=== PATIENT | female | born 1970 | race African-American/Black ===

== ENCOUNTER 2018-04-05 20:51 | Emergency (ER) | payer MEDICAID ==
[~2018-04-05] VITALS: Ht 154.9 cm; Wt 104.3 kg
[~2018-04-05 20:51] MED LIST: ARIP400S INJ; ARIP400S2 IM; CEFP500T4 PO; FLUO20CA25 PO; INVEGA; LISI-556 PO; NITR-65 PO; ONDAN4ODT PO; POTA-51 PO; QUET100T32 PO; QUET200T57 PO; TRIA16.5 NS
[2018-04-05] MEDS ORDERED: LACTATED RINGERS 1,000 ML IV ONE (21:07)
[2018-04-05] MEDS ORDERED: KETOROLAC 30 MG/ML VIAL IVP STA (21:07)
[2018-04-05 21:24] LABS: BASOPHILS % (AUTO) 0 % (0-10); EOSINOPHILS # (AUTO) 0.2 10^3/uL (0.0-0.3); EOSINOPHILS % (AUTO) 2 % (0-10); HEMATOCRIT 32 % (35-52); HEMOGLOBIN 9.9 G/DL (11.5-16.0); LYMPHOCYTES # (AUTO) 1.9 X 10^3 (1.0-4.0); LYMPHOCYTES % (AUTO) 12 % (12-44); MEAN CORPUSCULAR HEMOGLOBIN 25 PG (25-34); MEAN CORPUSCULAR HGB CONC 31 G/DL (32-36); MEAN CORPUSCULAR VOLUME 80 FL (80-99); MEAN PLATELET VOLUME 8.6 FL (7.4-10.4); MONOCYTES # (AUTO) 0.9 X 10^3 (0.0-1.0); MONOCYTES % (AUTO) 6 % (0-12); NEUTROPHILS # (AUTO) 12.9 X 10^3 (1.8-7.8); NEUTROPHILS % (AUTO) 81 % (42-75); PLATELET COUNT 511 10^3/uL (130-400); RED BLOOD COUNT 4.01 10^6/uL (4.35-5.85); RED CELL DISTRIBUTION WIDTH 16.8 % (10.0-14.5)
[2018-04-05 21:25] LABS: BILIRUBIN,URINE NEGATIVE (NEGATIVE); CLARITY,URINE VERY CLOUDY; COLOR,URINE OTHER; GLUCOSE, URINE (UA) NEGATIVE (NEGATIVE); KETONES,URINE NEGATIVE (NEGATIVE); LEUKOCYTE ESTERASE ,URINE 3+ (NEGATIVE); NITRITE,URINE NEGATIVE (NEGATIVE); PH,URINE 7 (5-9); PROTEIN,URINE 4+ (NEGATIVE); UROBILINOGEN,URINE NORMAL (NORMAL)
[2018-04-05 21:33] LABS: BACTERIA,URINE FEW /HPF; RBC,URINE >100 /HPF; SQUAMOUS EPITHELIAL CELL,UR 0-2 /HPF; WBC,URINE 25-50 /HPF
[2018-04-05 21:35] LABS: AMPHETAMINE SCREEN, URINE NEGATIVE (NEGATIVE); BARBITURATE SCREEN URINE NEGATIVE (NEGATIVE); BENZODIAZEPINES SCREEN URINE NEGATIVE (NEGATIVE); CANNABINOID SCREEN, URINE NEGATIVE (NEGATIVE); COCAINE SCREEN URINE NEGATIVE (NEGATIVE); METHADONE STAT NEGATIVE (NEGATIVE); METHAMPHETAMINE SCREEN URINE S NEGATIVE (NEGATIVE); OPIATE SCREEN URINE NEGATIVE (NEGATIVE); OXYCODONE STAT NEGATIVE (NEGATIVE); PROPOXYPHENE STAT NEGATIVE (NEGATIVE); TRICYCLIC ANTIDEPRESSANTS SCRE POSITIVE (NEGATIVE)
[2018-04-05 21:42] LABS: BAND NEUTROPHILS 0 %; BASOPHILS % (MANUAL) 2 %; EOSINOPHILS % (MANUAL) 0 %; LYMPHOCYTES % (MANUAL) 11 %; MONOCYTES % (MANUAL) 4 %; NEUTROPHILS % (MANUAL) 83 %; RBC MORPH NORMAL
[2018-04-05 21:46] LABS: ALANINE AMINOTRANSFERASE 21 U/L (0-55); ALBUMIN 4.1 GM/DL (3.2-4.5); ALKALINE PHOSPHATASE 150 U/L (40-136); AMYLASE 43 U/L (25-125); BILIRUBIN,TOTAL 0.3 MG/DL (0.1-1.0); BUN/CREATININE RATIO 11; CALCIUM 9.6 MG/DL (8.5-10.1); CARBON DIOXIDE 21 MMOL/L (21-32); CHLORIDE 110 MMOL/L (98-107); CREATININE SERUM 1.12 MG/DL (0.60-1.30); GFR ESTIMATED > 60; GLUCOSE 114 MG/DL (70-105); LIPASE 27 U/L (8-78); POTASSIUM 4.1 MMOL/L (3.6-5.0); SODIUM 142 MMOL/L (135-145); TOTAL PROTEIN 7.8 GM/DL (6.4-8.2)
--- NOTE | 2018-04-05 22:05 | Diagnostic Imaging Report ---
INDICATION: Blood in urine. Painful urination EXAMINATION: Abdominal series dated 04/05/2018 COMPARISON: 05/11/2011 FINDINGS: The heart is stable. Pulmonary vasculature is congested. Mildly prominent markings in the mid lungs bilaterally perhaps due to mild edema. No effusions, infiltrates or pneumothorax. The abdomen demonstrates no free air. Scattered air and stool seen throughout the colon. No dilated loops of bowel are seen. Hyperdensities in the right midabdomen are noted and nonspecific. These could represent renal stones. They were not present on previous imaging. Hyperdensities throughout the pelvis are seen bilaterally as well and not present previously. Although some of these are likely phleboliths ureteral stones cannot be excluded. Very mild scoliosis of the lower lumbar region noted. Degenerative findings noted in the lower lumbar spine with likely pars defects bilaterally at L5. IMPRESSION: 1. Densities in the pelvis bilaterally and also in the right mid abdomen, nephrolithiasis and distal ureteral stones cannot be excluded on this examination and if there is concern for such a process CT imaging recommended. 2. Nonobstructive bowel gas pattern 3. Questionable pulmonary edema versus chronic interstitial changes with pulmonary vascular congestion also possible. Dictated by: Dictated on workstation # [id number]
--- NOTE | 2018-04-05 22:11 | ED GU-Female ---
General Chief Complaint: Abdominal/GI Problems Stated Complaint: POSS KIDNEY STONE Nursing Triage Note: PT PRESENTS TO ER WITH COMPLAINT OF BLOOD IN URINE AND PAIN. STATES SHE FEELS SHE COULD HAVE A POSSIBLE KIDNEY STONE. Nursing Sepsis Screen: No Definite Risk Source: patient Exam Limitations: other (SOMEWHAT LIMITED HISTORIAN) Allergies and Home Medications Allergies Coded Allergies: Penicillins (Verified Allergy, Unknown, 05/17/08) Home Medications Aripiprazole 400 Mg Suser.vial, 400 MG IM UD, (Reported) Fluoxetine HCl 20 Mg Capsule, 1 CAP PO DAILY, (Reported) Lisinopril 5 Mg Tablet, 1 TAB PO DAILY, (Reported) Nitrofurantoin Monohyd/M-Cryst 100 Mg Capsule, 1 TAB PO BID Prescribed by: MAGDA OCHOA on 10/01/15 2319 Potassium Chloride 20 Meq Tablet.er, 20 MEQ PO BID Prescribed by: CONRADO PAUL on 05/07/15 1532 Quetiapine Fumarate 200 Mg Tablet, 1 TAB PO DAILY, (Reported) Past [id number] Hx Patient Social History Alcohol Use: Denies Use Recreational Drug Use: No Smoking Status: Current Everyday Smoker Recent Foreign Travel: No Contact w/Someone Who Travel: No Recent Infectious Disease Expo: No Immunizations Up To Date Tetanus Booster (TDap): Unknown PED Vaccines UTD: Yes Date of Influenza Vaccine: Jun 11, 2015 Seasonal Allergies Seasonal Allergies: No Past Medical History Surgeries: Yes Tubal Ligation Respiratory: No Cardiac: Yes Hypertension Neurological: No Reproductive Disorders: No Sexually Transmitted Disease: No HIV/AIDS: No Gastrointestinal: No Musculoskeletal: No Endocrine: No Cancer: No Psychosocial: Yes (PATIENT TAKES ABILIFY AND) Suicide Attempts, Schizophrenia, Depression Integumentary: No Blood Disorders: No Adverse Reaction/Blood Tranf: No Family Medical History Patient reports no known family medical history. No Pertinent Family Hx Physical Exam Vital Signs Vital Signs - First Documented 04/05/18 20:56 Temp 100.4 Pulse 90 Resp 20 B/P (MAP) 176/110 (132) Pulse Ox 98 O2 Delivery Room Air Capillary Refill : Less Than 3 Seconds Height, Weight, BMI Height: 5'1.00" Weight: 230lbs. oz. 104.001068nb; BMI Method:Stated Focused Exam Lactate Level 04/05/18 21:27: Lactic Acid Level 1.41 Lactic Acid Level Laboratory Tests Test 04/05/18 21:27 Lactic Acid Level 1.41 MMOL/L (0.50-2.00) Progress/Results/Core Measures Suspected Sepsis Recent Fever Within 48 Hours: No Infection Criteria Present: None New/Unexplained Altered Menta: No Sepsis Screen: No Definite Risk SIRS Temperature:100.4 Pulse: 90 Respiratory Rate: 20 Laboratory Tests 04/05/18 21:15: White Blood Count 16.0H Blood Pressure 176 /110 Mean: 132 04/05/18 21:27: Lactic Acid Level 1.41 Laboratory Tests 04/05/18 21:15: Creatinine 1.12, Platelet Count 511H, Total Bilirubin 0.3 Results/Orders Lab Results Laboratory Tests Test 04/05/18 21:15 04/05/18 21:19 04/05/18 21:27 Range/Units White Blood Count 16.0 H 4.3-11.0 10^3/uL Red Blood Count 4.01 L 4.35-5.85 10^6/uL Hemoglobin 9.9 L 11.5-16.0 G/DL Hematocrit 32 L 35-52 % Mean Corpuscular Volume 80 80-99 FL Mean Corpuscular Hemoglobin 25 25-34 PG Mean Corpuscular Hemoglobin Concent 31 L 32-36 G/DL Red Cell Distribution Width 16.8 H 10.0-14.5 % Platelet Count 511 H 130-400 10^3/uL Mean Platelet Volume 8.6 7.4-10.4 FL Neutrophils (%) (Auto) 81 H 42-75 % Lymphocytes (%) (Auto) 12 12-44 % Monocytes (%) (Auto) 6 0-12 % Eosinophils (%) (Auto) 2 0-10 % Basophils (%) (Auto) 0 0-10 % Neutrophils # (Auto) 12.9 H 1.8-7.8 X 10^3 Lymphocytes # (Auto) 1.9 1.0-4.0 X 10^3 Monocytes # (Auto) 0.9 0.0-1.0 X 10^3 Eosinophils # (Auto) 0.2 0.0-0.3 10^3/uL Basophils # (Auto) 0.0 0.0-0.1 10^3/uL Neutrophils % (Manual) 83 % Lymphocytes % (Manual) 11 % Monocytes % (Manual) 4 % Eosinophils % (Manual) 0 % Basophils % (Manual) 2 % Band Neutrophils 0 % Blood Morphology Comment NORMAL Sodium Level 142 135-145 MMOL/L Potassium Level 4.1 3.6-5.0 MMOL/L Chloride Level 110 H 98-107 MMOL/L Carbon Dioxide Level 21 21-32 MMOL/L Anion Gap 11 5-14 MMOL/L Blood Urea Nitrogen 12 7-18 MG/DL Creatinine 1.12 0.60-1.30 MG/DL Estimat Glomerular Filtration Rate > 60 BUN/Creatinine Ratio 11 Glucose Level 114 H 70-105 MG/DL Calcium Level 9.6 8.5-10.1 MG/DL Total Bilirubin 0.3 0.1-1.0 MG/DL Aspartate Amino Transf (AST/SGOT) 17 5-34 U/L Alanine Aminotransferase (ALT/SGPT) 21 0-55 U/L Alkaline Phosphatase 150 H 40-136 U/L Total Protein 7.8 6.4-8.2 GM/DL Albumin 4.1 3.2-4.5 GM/DL Amylase Level 43 25-125 U/L Lipase 27 8-78 U/L Serum Test, Qualitative NEGATIVE NEGATIVE Urine Color OTHER H Urine Clarity VERY CLOUDY H Urine pH 7 5-9 Urine Specific [place] 1.010 L 1.016-1.022 Urine Protein 4+ NEGATIVE Urine Glucose (UA) NEGATIVE NEGATIVE Urine Ketones NEGATIVE NEGATIVE Urine Nitrite NEGATIVE NEGATIVE Urine Bilirubin NEGATIVE NEGATIVE Urine Urobilinogen NORMAL NORMAL MG/DL Urine Leukocyte Esterase 3+ H NEGATIVE Urine RBC (Auto) 5+ H NEGATIVE Urine RBC >100 H /HPF Urine WBC 25-50 H /HPF Urine Squamous Epithelial Cells 0-2 /HPF Urine Crystals NONE /LPF Urine Bacteria FEW H /HPF Urine Casts NONE /LPF Urine Mucus NEGATIVE /LPF Urine Culture Indicated YES Urine Opiates Screen NEGATIVE NEGATIVE Urine Oxycodone Screen NEGATIVE NEGATIVE Urine Methadone Screen NEGATIVE NEGATIVE Urine Propoxyphene Screen NEGATIVE NEGATIVE Urine Barbiturates Screen NEGATIVE NEGATIVE Ur Tricyclic Antidepressants Screen POSITIVE H NEGATIVE Urine Phencyclidine Screen NEGATIVE NEGATIVE Urine Amphetamines Screen NEGATIVE NEGATIVE Urine Methamphetamines Screen NEGATIVE NEGATIVE Urine Benzodiazepines Screen NEGATIVE NEGATIVE Urine Cocaine Screen NEGATIVE NEGATIVE Urine Cannabinoids Screen NEGATIVE NEGATIVE Lactic Acid Level 1.41 0.50-2.00 MMOL/L My Orders Orders - YULIANA JEFFRIES DO Ct Abd/Pelvis Wo(Kidney Stone) (04/05/18 21:07) Amylase (04/05/18 21:07) Cbc With Automated Diff (04/05/18 21:07) Comprehensive Metabolic Panel (04/05/18 21:07) Lipase (04/05/18 21:07) Ua Culture If Indicated (04/05/18 21:07) Acute Abd Series (04/05/18 21:07) Saline Lock/Iv-Start (04/05/18 21:07) Lactated Ringers (Lr 1000 Ml Iv Solution (04/05/18 21:07) Ketorolac Injection (Toradol Injection) (04/05/18 21:07) Lactic Acid Analyzer (04/05/18 21:07) Blood Culture (04/05/18 21:07) Drug Screen Stat (Urine) (04/05/18 21:07) Hcg,Qualitative Serum (04/05/18 21:07) Manual Differential (04/05/18 21:15) Urine Culture (04/05/18 21:19) Ceftriaxone Injection (Rocephin Injectio (04/06/18 00:00) Rx-Hydrocodone/Apap 5-325 Mg (Rx-Vicodin (04/06/18 00:45) Rx-Ondansetron Po (Rx-Zofran Po) (04/06/18 00:41) Rx-Nitrofurantoin [place] (Rx-Macrobid) (04/06/18 00:41) Alfuzosin (Not Stocked) (Uroxatral (Not (04/06/18 00:45) Medications Given in ED Current Medications Medications Dose Ordered Sig/Mikki Route Start Time Stop Time Status Last Admin Dose Admin Ceftriaxone Sodium 1000 mg/ Sodium Chloride 50 ml @ 100 mls/hr ONCE ONCE IV 04/06/18 00:00 04/06/18 00:29 DC 04/06/18 00:08 100 MLS/HR Lactated Ringer's 1,000 ml @ 0 mls/hr Q0M ONCE IV 04/05/18 21:07 04/05/18 21:09 DC 04/05/18 21:25 1,000 MLS/HR Vital Signs/I&O 04/05/18 20:56 Temp 100.4 Pulse 90 Resp 20 B/P (MAP) 176/110 (132) Pulse Ox 98 O2 Delivery Room Air Capillary Refill : Less Than 3 Seconds Blood Pressure Mean: 132 Departure Impression Primary Impression: Left ureteral calculus Additional Impressions: UTI (urinary tract infection) Cholelithiasis Disposition: 01 HOME, SELF-CARE Condition: Improved Departure-Patient Inst. Referrals: [facility] [place] ([place]) Primary Care Physician JOJO PIERSON MD,DARYL Slater MD Add. Discharge Instructions: LOTS OF CLEAR LIQUIDS--DRINK ENOUGH SO YOU ARE URINATING EVERY 2-3 HOURS WHILE AWAKE STRAIN ALL URINE--RETURN ANY STONES TO DR. EGAN'S OFFICE FOLLOW UP WITH DR. EGAN FOR FURTHER EVALUATION OF KIDNEY STONE FOLLOW UP WITH DR. PIERSON FOR FURTHER EVALUATION OF GALLSTONES RETURN TO ER IF WORSE All discharge instructions reviewed with patient and/or family. Voiced understanding. Scripts Hydrocodone/Ibuprofen (Hydrocodone-Ibuprofen 7.5-200) 1 Each Tablet 1-2 EACH PO Q4H for Pain, #20 TAB Prov: YULIANA JEFFRIES DO 04/06/18 Tamsulosin HCl (Flomax) 0.4 Mg Cap 0.4 MG PO DAILY, #10 CAP Prov: YULIANA JEFFRIES DO 04/06/18 Ondansetron (Zofran Odt) 4 Mg Tab.rapdis 4 MG PO Q4H for Nausea/Vomiting, #10 TAB Prov: YULIANA JEFFRIES DO 04/06/18 Nitrofurantoin Monohyd/M-Cryst (Macrobid 100 mg Capsule) 100 Mg Capsule 100 MG PO BID, #20 CAP Prov: YULIANA JEFFRIES DO 04/06/18 YULIANA JEFFRIES DO Apr 05, 2018 22:11
[2018-04-06] MEDS ORDERED: cefTRIAXone INJECTION 1,000 MG in NS (IVPB) 50 ML IV ONE ×2
[2018-04-06] MEDS ORDERED: RX-NITROFURANTOIN 100 MG (MACROBID) CAP PPK#2 PO STA (00:41)
[2018-04-06] MEDS ORDERED: RX-ONDANSETRON 4 MG ODT (ZOFRAN) PPK #4 PO STA (00:41)
[2018-04-06] MEDS ORDERED: RX-HYDROCODONE/APAP 5/325 MG #4 TAB PK PO PRN (00:45)
[2018-04-06] MEDS ORDERED: ALFUZOSIN HCL 10 MG TAB (UROXATRAL) PO SCH (00:45)
[2018-04-06] MEDS ORDERED: HYDR-87 PO (00:46)
[2018-04-06] MEDS ORDERED: ONDA4TAB8 PO (00:46)
[2018-04-06] MEDS ORDERED: TAMS0.4C98 PO (00:46)
[2018-04-06] MEDS ORDERED: NITR-65 PO (00:46)
[2018-04-06 01:08] VITALS: BP 145/90
--- OUTSIDE RECORDS SUMMARY | 2018-04-06 01:32 | XMS REPORT ---
Author Author KEENAN REESE Organization [facility] [place] Address [address] [place] [address] Care Team Providers Care Dot Etcher Name Role Phone KEENAN REESE Unavailable PROBLEMS Type Condition ICD9-CM Code [id number] Code Onset Dates Condition Status SNOMED Code Problem Schizoaffective disorder F25.9 Active 70517371 Problem Impacted cerumen of both ears H61.23 Active [id number] Problem Establishing care with new doctor, encounter for Z76.89 Active 491355796 Problem HTN (hypertension) I10 Active 09956738 Problem Family history of borderline diabetes mellitus Z83.3 Active 809739534 Problem Allergic rhinitis, unspecified seasonality, unspecified trigger J30.9 Active 08254876 Problem Anxiety F41.9 Active 73023987 ALLERGIES No Information ENCOUNTERS Encounter Location Date Diagnosis [place] [id number] [place] [phone] Mar, Gastroenteritis K52.9 and BMI 40.0-44.9, adult Z68.41 [place] [id number] [place] [address] 56196[address] 98[address] Dec, Establishing care with new doctor, encounter for Z76.89 ; HTN (hypertension) I10 ; Schizoaffective disorder F25.9 ; Anxiety F41.9 ; Allergic rhinitis, unspecified seasonality, unspecified trigger J30.9 ; Impacted cerumen of both ears H61.23 and BMI 40.0-44.9, adult Z68.41 [place] [id number] [place] [address]67[address] Nov, [place] [id number] [place] [address]682[address] 58[address] Oct, [place] [id number] [place] [address]57- 384[address] Apr, [place] [id number] [place] [address] 64[address] 6[address] Apr, Family history of borderline diabetes mellitus Z83.3 [place] [id number] [place] [address] 91483- 2[address] Apr, Family history of borderline diabetes mellitus Z83.3 ; Establishing care with new doctor, encounter for Z76.89 ; Screening cholesterol level Z13.220 ; HTN (hypertension) I10 ; Schizoaffective disorder F25.9 and Anxiety F41.[address] [address] Apr, [place] [address] [address] Aug, Other viral agents as the cause of diseases classified elsewhere B97.89 and Acute upper respiratory infection, unspecified J06.9 [place] [address] [address] Jul, Encounter for immunization Z23 [place] [address] [address] Apr, HTN (hypertension) I10 and Family history of borderline diabetes mellitus Z83.3 [place] [id number] [place] [address] 49[address]- 8910 Nov, [place] [address] [address] Oct, HTN (hypertension) I10 ; Family history of borderline diabetes mellitus Z83.3 ; Schizoaffective disorder F25.9 and Anxiety F41.9 [place] [id number] [place] [address] 81726- 4[address] Oct, [place] [id number] [place] [address]- [address] Sep, [place] [address] [place] [address] Jul, Major depression, recurrent F33.9 [facility] [place] [id number] [place] [address] 48498- 9[address] Jul, Encounter for immunization Z23 [facility] [place] [id number] [place] [address] 62881- [phone] 08 May, 2015 Vaginal pain 625.9 and UTI (urinary tract infection) 599.0 [facility] [place] [id number] [place] [address] 93012- 5871 Apr, Sinusitis 473.9 [facility] [place] [address] [address] Apr, [facility] [place] [id number] [place] [address] 76151- 0763 Apr, [facility] [place] [id number] [place] [address] 47564- 0[address] Apr, Encounter for routine gynecological examination V72.31 [facility] [place] [id number] [place] [address] 46364- 8[address] Feb, [facility] [place] [id number] [place] [address] 31421- 1756 Dec, [facility] [place] [id number] [place] [address] 80514- 5563 Dec, [facility] [place] [id number] [place] [address] 76803- 3474 Oct, [facility] [place] [id number] [place] [address] 69148- 3541 Oct, [facility] [place] [id number] [place] [address] 35170- [address] May, [facility] [place] [id number] [place] [address] 02443- [address]995 May, [facility] [place] [id number] [place] [address] 65083- 3636 Sep, [facility] [place] [address] [facility] [id number] [place] [address] Sep, [facility] [place] [address] [facility] [id number] [place] [address] Jul, IMMUNIZATIONS No Known Immunizations SOCIAL HISTORY Never Assessed REASON FOR VISIT Eye Exam PLAN OF CARE VITAL SIGNS MEDICATIONS No Known Medications RESULTS No Results PROCEDURES No Known procedures INSTRUCTIONS MEDICATIONS ADMINISTERED No Known Medications MEDICAL (GENERAL) HISTORY Type Description Date Medical History schizoaffective disorder Medical History anxiety Medical History depression Medical History hypertension Surgical History tubal ligation Hospitalization History childbirth only Hospitalization History [facility] in [place] 09/2015
--- OUTSIDE RECORDS SUMMARY | 2018-04-06 01:33 | XMS REPORT ---
Author DIANA Munguia [facility] eClinicalWorks Address Unknown Phone Unavailable Care Team Providers Care Palm And Back Forger Name Role Phone DIANA VIDAL CP Unavailable Allergies, Adverse Reactions, Alerts Substance Reaction Event Type Penicillamine Info Not Available Drug Allergy Problems Problem Type Condition Code Onset Dates Condition Status Problem Routine general medical examination at health care facility V70.0 Active Assessment Major depression, recurrent F33.9 Active Problem Need for prophylactic vaccination and inoculation, Influenza V04.81 Active Medications No Known Medications Procedures Procedure Coding System Code Date Psych diagnostic evaluation, new patient CPT-4 78354 Jul 28, 2015 Results No Known Results Summary Purpose eClinicalWorks Submission
--- OUTSIDE RECORDS SUMMARY | 2018-04-06 01:33 | XMS REPORT ---
Author Author ALBAN WOODARD Organization e[employer] Address Unknown Phone Unavailable Care Team Providers Care Test Puller Name Role Phone ALBAN WOODARD Unavailable Allergies No Known Allergies Problems Problem Type Condition Code Onset Dates Condition Status Problem Routine general medical examination at health care facility V70.0 Active Problem Need for prophylactic vaccination and inoculation, Influenza V04.81 Active Medications No Known Medications Results No Known Results Summary Purpose eClinicalWorks Submission
--- OUTSIDE RECORDS SUMMARY | 2018-04-06 01:33 | XMS REPORT ---
Author KEENAN Hu [facility] eClinicalWorks Address Unknown Phone Unavailable Care Team Providers Care Online User Experience Strategist Name Role Phone EKENAN REESE CP Unavailable Allergies No Known Allergies Problems Problem Type Condition Code Onset Dates Condition Status Problem Family history of borderline diabetes mellitus Z83.3 Active Problem Schizoaffective disorder F25.9 Active Problem HTN (hypertension) I10 Active Problem Anxiety F41.9 Active Assessment Encounter for immunization Z23 Active Medications No Known Medications Procedures Procedure Coding System Code Date SINGLE IMMUNIZATION ADMIN CPT-4 41634 Jul 06, 2016 FLUARIX QUAD P-FREE 3 AND UP .50 2015 CPT-4 90063 Jul 06, 2016 Results No Known Results Immunizations Vaccine Administration Date FLUARIX QUAD P-FREE 3 AND UP .50 2015Jul 06, 2016 Summary Purpose eClinicalWorks Submission
--- OUTSIDE RECORDS SUMMARY | 2018-04-06 01:33 | XMS REPORT ---
Author Author KELLY ROBB Organization e[employer] Address Unknown Phone Unavailable Care Team Providers Care Color Adviser Name Role Phone KELLY ROBB CP Unavailable Allergies, Adverse Reactions, Alerts Substance Reaction Event Type Penicillamine Info Not Available Drug Allergy Problems Problem Type Condition ICD-9 Code Onset Dates Condition Status Problem Routine general medical examination at health care facility V70.0 Active Assessment Vaginal pain 625.9 Active Problem Need for prophylactic vaccination and inoculation, Influenza V04.81 Active Assessment UTI (urinary tract infection) 599.0 Active Medications Medication Code System Code Instructions Start Date End Date Status Dosage Lisinopril [facility] [address]-36 5 MG Orally Once a day 1 tablet Bactrim DS [facility] [address]-16 800-160 MG Orally 2 times a day May 13, 2015 May 18, 2015 1 tablet QUEtiapine Fumarate ER [facility] [address]-73 50 MG Orally Once a day 1 tablet in the evening Prozac [facility] [address]-32 20 MG Orally Once a day 1 capsule in the morning Abilify [facility] [address]-41 Jun 04, 2014 by intramuscular route Procedures Procedure Coding System Code Date Office Visit, Est Pt., Level 3 CPT-4 89173 May 13, 2015 URINALYSIS, AUTO, W/O SCOPE CPT-4 86302 May 13, 2015 Vital Signs Date/Time: May 13, 2015 Cardiac Monitoring Heart Rate 76 bpm Temperature 98.4 F Weight 219.5 lbs Blood Pressure Diastolic 90 mmHg Blood Pressure Systolic 144 mmHg Results No Known Results Summary Purpose eClinicalWorks Submission
--- OUTSIDE RECORDS SUMMARY | 2018-04-06 01:33 | XMS REPORT ---
Author Author Brady JOSÉ ANTONIO Organization [facility] Address [address] [place] [address] Care Team Providers Care Organic Lab Worker Name Role Phone isadoraEVERTON FloresNETTE Unavailable PROBLEMS Type Condition ICD9-CM Code BZG95-AV Code Onset Dates Condition Status SNOMED Code Problem Anxiety F41.9 Active 43788297 Problem HTN (hypertension) I10 Active 40246332 Problem Family history of borderline diabetes mellitus Z83.3 Active 268528834 Problem Schizoaffective disorder F25.9 Active 74500061 ALLERGIES No Information ENCOUNTERS Encounter Location Date Diagnosis [place] [id number] [address] Dec, [facility] [address] [place] [id number] [place] [address] Nov, [place] [address] [address] Oct, [facility] [address] [id number] [place] [address]24- [address]707 Apr, [facility] [address] [id number] [place] [address] 18560- 4349 Apr, Family history of borderline diabetes mellitus Z83.3 [facility] [address] [id number] [place] [address] 04190- 5631 Apr, Family history of borderline diabetes mellitus Z83.3 ; Establishing care with new doctor, encounter for Z76.89 ; Screening cholesterol level Z13.220 ; HTN (hypertension) I10 ; Schizoaffective disorder F25.9 and Anxiety F41.9 [facility] [address] [address] Apr, [place] [address] [place] [address] 38764- 8842 Aug, Other viral agents as the cause of diseases classified elsewhere B97.89 and Acute upper respiratory infection, unspecified J06.9 [place] [address] [place] [address] 84525- 8978 Jul, Encounter for immunization Z23 [place] [address] [place] [id number] [place] [address] 29091- 3086 Apr, HTN (hypertension) I10 and Family history of borderline diabetes mellitus Z83.3 [place] [address] [place] [id number] [place] [address] 43600- 8728 Nov, [place] [address] [place] [id number] [place] [address] 86378- 5[address] Oct, HTN (hypertension) I10 ; Family history of borderline diabetes mellitus Z83.3 ; Schizoaffective disorder F25.9 and Anxiety F41.9 [place] [address] [place] [id number] [place] [address] 85485- 7847 Oct, [place] [address] [place] [id number] [place] [address] 21909- 4739 Sep, [place] [address] [place] [id number] [place] [address] 95231- 8179 Jul, Major depression, recurrent F33.9 [place] [address] [place] [id number] [place] [address] 26265- 5474 Jul, Encounter for immunization Z23 [place] [address] [place] [address] 48939- 9390 May, Vaginal pain 625.9 and UTI (urinary tract infection) 599.0 [place] [address] [place] [address] 40128- 3725 Apr, Sinusitis 473.9 [place] [address] [place] [id number] [place] [address] 37491- 8258 Apr, [facility] [address] [id number] [address] Apr, [facility] [address] Apr, Encounter for routine gynecological examination V72.31 [facility] [address] [id number] [address] Feb, [facility] [address] [address] Dec, [facility] [address] [address] Dec, [facility] [address] [address] Oct, [facility] [address] [address] 45[address] Oct, [facility] [address] May, [facility] [address] May, [facility] [address] [address] Sep, [facility] [address] [place] [id number] [address] Sep, [facility] [address] [place] [address] Jul, IMMUNIZATIONS No Known Immunizations SOCIAL HISTORY Never Assessed REASON FOR VISIT PLAN OF CARE VITAL SIGNS MEDICATIONS Medication Instructions Dosage Frequency Start Date End Date Duration Status Lisinopril 10 mg TAKE 1 TABLET BY MOUTH DAILY 30 10 days Active RESULTS No Results PROCEDURES No Known procedures INSTRUCTIONS MEDICATIONS ADMINISTERED No Known Medications MEDICAL (GENERAL) HISTORY Type Description Date Medical History schizoaffective disorder Medical History anxiety Medical History depression Medical History hypertension Surgical History tubal ligation Hospitalization History childbirth only Hospitalization History [facility] in [place] 09/2015
--- OUTSIDE RECORDS SUMMARY | 2018-04-06 01:33 | XMS REPORT ---
Author Author KELLY ROBB Organization [employer] Address Unknown Phone Unavailable Care Team Providers Care Rn Care Manager Name Role Phone KELLY ROBB CP Unavailable Allergies, Adverse Reactions, Alerts Substance Reaction Event Type Penicillamine Info Not Available Drug Allergy Problems Problem Type Condition ICD-9 Code Onset Dates Condition Status Problem Routine general medical examination at health care facility V70.0 Active Assessment Sinusitis 473.9 Active Problem Need for prophylactic vaccination and inoculation, Influenza V04.81 Active Medications Medication Code System Code Instructions Start Date End Date Status Dosage QUEtiapine Fumarate ER [facility] [address]-99 50 MG Orally Once a day 1 tablet in the evening Lisinopril [facility] [address]-06 5 MG Orally Once a day 1 tablet Claritin [facility] [address]-33 10 MG Orally Once a day Apr 24, 2015 May 08, 2015 1 tablet Prozac [facility] [address]-01 20 MG Orally Once a day 1 capsule in the morning Abilify [facility] [address]-65 Jun 04, 2014 by intramuscular route Azithromycin [facility] [address]-24 250 MG Orally Once a day Apr 24, 2015 Apr 29, 2015 2 tablets on the first day, then 1 tablet daily for 4 days Procedures Procedure Coding System Code Date Office Visit, Est Pt., Level 3 CPT-4 61916 Apr 24, 2015 Vital Signs Date/Time: Apr 24, 2015 Cardiac Monitoring Heart Rate 78 bpm Temperature 97.8 F Weight 216.4 lbs Blood Pressure Diastolic 86 mmHg Blood Pressure Systolic 134 mmHg Results No Known Results Summary Purpose [employer] Submission
--- OUTSIDE RECORDS SUMMARY | 2018-04-06 01:33 | XMS REPORT ---
Author Author ALBAN WOODARD Organization [employer] Address Unknown Phone Unavailable Care Team Providers Care Web Marketing Intern Name Role Phone ALBAN WOODARD Unavailable Allergies No Known Allergies Problems Problem Type Condition Code Onset Dates Condition Status Problem Routine general medical examination at health care facility V70.0 Active Assessment Encounter for immunization Z23 Active Problem Need for prophylactic vaccination and inoculation, Influenza V04.81 Active Medications No Known Medications Procedures Procedure Coding System Code Date SINGLE IMMUNIZATION ADMIN CPT-4 48544 Jul 07, 2015 FLUARIX QUAD (3 & UP)-GSK-2014 CPT-4 01160 Jul 07, 2015 Results No Known Results Immunizations Vaccine Administration Date FLUARIX QUAD (3 & UP)-GSK-2014Jul 07, 2015 Summary Purpose [employer] Submission
--- OUTSIDE RECORDS SUMMARY | 2018-04-06 01:33 | XMS REPORT ---
Author Author SHAYLA RITCHIE [facility] Address [address] [place] [address] Care Team Providers Care Truck Driver Rubbish Collector Name Role Phone SHAYLA RITCHIE Unavailable PROBLEMS Type Condition ICD9-CM Code HXI41-IT Code Onset Dates Condition Status SNOMED Code Problem HTN (hypertension) I10 Active 05733506 Problem Family history of borderline diabetes mellitus Z83.3 Active 898633808 Problem Schizoaffective disorder F25.9 Active 88140249 Problem Anxiety F41.9 Active 02422546 ALLERGIES Substance Reaction Event Type Date Status Penicillamine Unknown Drug Allergy Aug, Active SOCIAL HISTORY No smoking Hx information available PLAN OF CARE Activity Details Follow Up prn Reason: VITAL SIGNS Height 63 in 2016-09-02 Weight 219.0 lbs 2016-09-02 Temperature 99.0 degrees Fahrenheit 2016-09-02 Heart Rate 90 bpm 2016-09-02 Respiratory Rate 22 2016-09-02 Oximetry 97 % 2016-09-02 BMI 38.79 kg/m2 2016-09-02 Blood pressure systolic 138 mmHg 2016-09-02 Blood pressure diastolic 102 mmHg 2016-09-02 MEDICATIONS Medication Instructions Dosage Frequency Start Date End Date Duration Status Prozac 20 MG Orally Once a day 1 capsule in the morning 24h Active Lisinopril 10 mg TAKE 1 TABLET BY MOUTH DAILY 30 30 Active Loratadine 10 mg Orally Once a day as needed for congestion 1 tablet Aug, Sep, 30 day(s) Active Abilify by intramuscular route May, Active QUEtiapine Fumarate ER 200 MG Orally Once a day 1 tablet in the evening 24h Active RESULTS No Results PROCEDURES Procedure Date Ordered Related Diagnosis Body Site MEASURE BLOOD OXYGEN LEVEL Sep 02, 2016 Office Visit, Est Pt., Level 3 Sep 02, 2016 IMMUNIZATIONS No Known Immunizations
--- OUTSIDE RECORDS SUMMARY | 2018-04-06 01:33 | XMS REPORT ---
Author Author ALBAN WOODARD Organization [employer] Address Unknown Phone Unavailable Care Team Providers Care Information Services Manager Name Role Phone ALBAN WOODARD Unavailable Allergies No Known Allergies Problems Problem Type Condition Code Onset Dates Condition Status Problem Routine general medical examination at health care facility V70.0 Active Problem Need for prophylactic vaccination and inoculation, Influenza V04.81 Active Medications Medication Code System Code Instructions Start Date End Date Status Dosage Lisinopril [facility] [address]-86 5 MG Orally Once a day- must have est care appt with a new provider 1 tablet Results No Known Results Summary Purpose [employer] Submission
--- NOTE | 2018-04-06 07:09 | Diagnostic Imaging Report ---
PROCEDURE: CT urinary tract, rule out kidney stone. TECHNIQUE: Multiple contiguous axial images were obtained through the abdomen and pelvis without the use of intravenous contrast. INDICATION: Blood in urine pain, painful. No history of stones. COMPARISON STUDY: No pertinent studies. FINDINGS: The lung bases are clear. No pleural effusions are present. There is a 3 cm calculi which appears to be stuck in the neck of the gallbladder. No duct dilatation or inflammation seen. A small stone is also present in the fundus of the gallbladder. The liver, spleen, pancreas, and adrenal glands are normal. There is a 6.4 mm calculi in the distal left ureter just above the ureterovesical junction. Mild left hydronephrosis is present. Several right renal calculi are present without hydronephrosis or inflammation. The largest calculi measures 11 mm. There is no ascites or free air. The uterus, urinary bladder and adnexal structures appear unremarkable. IMPRESSION: 1. There is bilateral nephrolithiasis with a 6.4 mm calculi in the distal left ureter with mild left hydronephrosis. 2. There is a 3 cm calculi in the neck of the gallbladder. No inflammation or duct dilatation is present. Findings agree with the [facility] report. Dictated by: Dictated on workstation # [id number]
== END 2018-04-06 01:08 | disposition home or self-care (01) ==
LOC: EDUNIT# 20:51 → ER 20:53
DX: N20.1 Calculus of ureter (principal); N39.0 Urinary tract infection, site not specified; K80.20 Calculus of gallbladder without cholecystitis without obstruction; I10 Essential (primary) hypertension; F20.9 Schizophrenia, unspecified; F32.9 Major depressive disorder, single episode, unspecified; F17.200 Nicotine dependence, unspecified, uncomplicated; Z91.5 Personal history of self-harm; Z98.51 Tubal ligation status; Z88.0 Allergy status to penicillin
CPT/HCPCS: 36415; 74022; 74176; 80053; 80306; 81000; 82150; 83605; 83690; 84703; 85007; 85027; 87040; 87088; 96361; 96365; 96375

== ENCOUNTER 2018-04-18 15:13 | Outpatient (CLI) | payer MEDICAID ==
[~2018-04-18] VITALS: Ht 154.9 cm; Wt 104.3 kg
[~2018-04-18 15:13] MED LIST changes: -LISI10TA2 PO; -PHEN-640 PO
[2018-04-18] MEDS ORDERED: LISI10TA2 PO (15:47)
[2018-04-19] MEDS ORDERED: TAMS0.4C98 PO (13:39)
[2018-04-19] MEDS ORDERED: PHEN-640 PO (13:39)
== END 2018-04-18 15:50 | disposition home or self-care (01) ==
LOC: PREOP 15:13
PROVIDERS: ATTEND Urology
DX: Z01.818 Encounter for other preprocedural examination (principal)

== ENCOUNTER → 2018-04-18 | Outpatient (CLI) | payer MEDICAID ==
[~2018-04-18] MED LIST changes: +HYDR-87 PO; +LISI10TA2 PO; +ONDA4TAB8 PO; +PHEN-640 PO; +TAMS0.4C98 PO
--- NOTE | 2018-04-18 12:12 | Diagnostic Imaging Report ---
CLINICAL INDICATION: Patient states gallbladder stones and questionable bilateral kidney stones. EXAM: KUB x-ray. COMPARISON: X-ray of the chest and abdomen dated 04/05/2018. FINDINGS AND IMPRESSION: 1: There is a new area of increased density overlying the right sacral region, which was not seen on the prior study. A distal right ureter stone cannot be completely excluded. This area of calcification measures grossly 5 mm. 2: There is a stable 9 mm calcification overlying the right renal shadow region and small area of calcification seen just superior to it. There are no other areas concerning for urinary tract stones. Stable phleboliths in the pelvis. 3: There is a nonobstructed bowel gas pattern. There is no evidence of abdominal free air. 4: There are small degenerative spurs involving lumbar spine and lower lumbar spine facet arthropathy. 5: There is degenerative spurring of the bilateral hip joint regions, especially the hypertrophic acetabular spurs which may be seen with pincer-type femoral acetabular impingement. Dictated by: Dictated on workstation # [id number]
== END ==
LOC: RAD 10:49
PROVIDERS: ATTEND Urology
DX: N20.2 Calculus of kidney with calculus of ureter (principal); K80.20 Calculus of gallbladder without cholecystitis without obstruction; M46.06 Spinal enthesopathy, lumbar region; M46.86 Other specified inflammatory spondylopathies, lumbar region; M76.891 Other specified enthesopathies of right lower limb, excluding foot; M76.892 Other specified enthesopathies of left lower limb, excluding foot
CPT/HCPCS: 74018

== ENCOUNTER 2018-04-19 08:53 | Day surgery (SDC) | payer MEDICAID ==
[~2018-04-19] VITALS: Ht 154.9 cm; Wt 104.3 kg
[~2018-04-19 08:53] MED LIST changes: +LISI10TA2 PO
--- OUTSIDE RECORDS SUMMARY | 2018-04-19 08:57 | XMS REPORT ---
Author Author ALISSA HEAD Organization [facility] Address [address] [place] [address] Care Team Providers Care Deputy Brand Inspector Name Role Phone ALISSA HEAD Unavailable PROBLEMS Type Condition ICD9-CM Code WDB06-MT Code Onset Dates Condition Status SNOMED Code Problem Schizoaffective disorder F25.9 Active 74729744 Problem Impacted cerumen of both ears H61.23 Active 2073390298802806 Problem Establishing care with new doctor, encounter for Z76.89 Active 743635454 Problem HTN (hypertension) I10 Active 49343766 Problem Family history of borderline diabetes mellitus Z83.3 Active 518545154 Problem Allergic rhinitis, unspecified seasonality, unspecified trigger J30.9 Active 85331163 Problem Anxiety F41.9 Active 90553702 ALLERGIES Substance Reaction Event Type Date Status Penicillamine Unknown Drug Allergy Dec, Active ENCOUNTERS Encounter Location Date Diagnosis [facility] [address] [address] Apr, [facility] [address] [place] [id number] [place] [address] Apr, [facility] [address] [address]- [address] Mar, Gastroenteritis K52.9 and BMI 40.0-44.9, adult Z68.41 [facility] [address] [address]- [address] Dec, Establishing care with new doctor, encounter for Z76.89 ; HTN (hypertension) I10 ; Schizoaffective disorder F25.9 ; Anxiety F41.9 ; Allergic rhinitis, unspecified seasonality, unspecified trigger J30.9 ; Impacted cerumen of both ears H61.23 and BMI 40.0-44.9, adult Z68.41 [place] [address] [place] [id number] [place] [address]- 2872 Nov, [place] [address] [place] [id number] [place] [address]43- 3611 Oct, [place] [address] [place] [id number] [place] [address] 85426- 8509 Apr, [place] [address] [address]- [address] Apr, Family history of borderline diabetes mellitus Z83.3 [place] [address] [place] [id number] [place] [address] 87377- 5203 Apr, Family history of borderline diabetes mellitus Z83.3 ; Establishing care with new doctor, encounter for Z76.89 ; Screening cholesterol level Z13.220 ; HTN (hypertension) I10 ; Schizoaffective disorder F25.9 and Anxiety F41.9 [place] [address] [place] [id number] [place] [address] 73532- 9846 Apr, [place] [address] [place] [id number] [place] [address] 49690- 2859 Aug, Other viral agents as the cause of diseases classified elsewhere B97.89 and Acute upper respiratory infection, unspecified J06.9 [place] [id number] [place] [address] 88273- 9572 Jul, Encounter for immunization Z23 [place] [address] [place] [id number] [place] [address] 29650- 3659 Apr, HTN (hypertension) I10 and Family history of borderline diabetes mellitus Z83.3 [place] [address] [place] [id number] [place] [address] 38531- 6927 Nov, [place] [address] [place] [id number] [place] [address] 88958- 0235 Oct, HTN (hypertension) I10 ; Family history of borderline diabetes mellitus Z83.3 ; Schizoaffective disorder F25.9 and Anxiety F41.9 [facility] [address] [place] [address] 94500- 9239 11 Oct, 2015 [facility] [address] [place] [id number] [place] [address] 89654- 8395 Sep, [facility] [address] [place] [id number] [place] [address] 86935- 8734 Jul, Major depression, recurrent F33.9 [facility] [address] [place] [id number] [place] [address] 59189- 1833 Jul, Encounter for immunization Z23 [facility] [address] [address]- [address] 08 May, 2015 Vaginal pain 625.9 and UTI (urinary tract infection) 599.0 [facility] [address] [place] [id number] [place] [address] 94343- 2303 Apr, Sinusitis 473.9 [facility] [address] [place] [id number] [place] [address] 84697- 3734 Apr, [facility] [address] [place] [id number] [place] [address] 26157- 4110 Apr, [facility] [address] [place] [id number] [place] [address] 29642- 6131 Apr, Encounter for routine gynecological examination V72.31 [facility] [address] [place] [address] 38666- 8288 Feb, [facility] [address] [place] [id number] [place] [address] 19435- 7624 Dec, [facility] [address] [place] [id number] [place] [address] 17350- 6432 Dec, [facility] [address] [place] [id number] [place] [address] 92330- 0707 Oct, [facility] [address] [place] [address] 06798- 2401 Oct, [facility] [address] [facility] [id number] [address] May, [facility] [address] [facility] [id number] [address]- [address] May, [facility] [address] [facility] [id number] [address]- 3056 Sep, [facility] [address] [facility] [id number] [address]- 2893 Sep, [facility] [address] [facility] [id number] [address]- 69[address] Jul, IMMUNIZATIONS No Known Immunizations SOCIAL HISTORY Never Assessed REASON FOR VISIT Establish Care--Renny PLAN OF CARE Activity Details Follow Up 3 Months, prn Reason:routine f/u VITAL SIGNS Height 63 in 2017-12-23 Weight 231.5 lbs 2017-12-23 Temperature 98.2 degrees Fahrenheit 2017-12-23 Heart Rate 90 bpm 2017-12-23 Respiratory Rate 2017-12-23 BMI 41.00 kg/m2 2017-12-23 Blood pressure systolic 118 mmHg 2017-12-23 Blood pressure diastolic 84 mmHg 2017-12-23 MEDICATIONS Medication Instructions Dosage Frequency Start Date End Date Duration Status Abilify 15 mg by intramuscular route May, Active Ferrous Sulfate 325 (65 Fe) MG Orally Once a day 1 tablet 24h Apr, Active QUEtiapine Fumarate ER 200 MG Orally Once a day 1 tablet in the evening 24h Active Lisinopril 10 mg Orally Once a day 1 tablet 24h 90 Active Prozac 20 MG Orally Once a day 1 capsule in the morning 24h Active Flonase 50 MCG/ACT Nasally no more than twice a day 1 spray in each nostril Dec, 30 day(s) Active Zyrtec Allergy 10 mg Orally Once a day 1 tablet 24h Dec, Apr, 30 day(s) Active RESULTS No Results PROCEDURES No Known procedures INSTRUCTIONS MEDICATIONS ADMINISTERED No Known Medications MEDICAL (GENERAL) HISTORY Type Description Date Medical History schizoaffective disorder Medical History anxiety Medical History depression Medical History hypertension Surgical History tubal ligation Hospitalization History childbirth only Hospitalization History [facility] 09/2015
--- OUTSIDE RECORDS SUMMARY | 2018-04-19 08:58 | XMS REPORT | Continuity of Care Document ---
Author Author [facility] Address Unknown Phone Unavailable Allergies Active Description Code Type Severity Reaction Onset Reported/Identified Relationship to Patient Clinical Status Yes Penicillins [id number] Drug Allergy Unknown N/A 05/17/2008 Yes Penicillins Drug Allergy N/A N/A 06/04/2014 Medications There is no data. Problems Date Dx Coded Attending Type Code Diagnosis Diagnosed By 05/11/2011 Ot 789.03 05/11/2011 Ot 789.04 07/11/2012 Ot 295.90 07/11/2012 Ot V62.84 07/11/2012 Ot V62.85 01/10/2013 YULIANA JEFFRIES DO Ot 473.9 01/10/2013 YULIANA JEFFRIES DO Ot 729.1 02/27/2013 CONRADO MAYA Ot 784.0 09/17/2013 REESE KEENAN FARIAS V04.81 FLU SHOT 09/17/2013 ALBAN WOODARD APRN V04.81 FLU SHOT 06/04/2014 ALBAN WOODARD APRN N V70.0 ROUTINE GENERAL MEDICAL EXAMINATION AT A HEALTH CARE FACILITY 12/31/2014 ZAY GERMAN, JAVON Lopez Ot 295.90 12/31/2014 ZAY GERMAN, JAVON Lopez Ot 305.1 12/31/2014 ZAY GERMAN, JAVON Lopez Ot 969.3 12/31/2014 ZAY GERMAN, JAVON Lopez Ot E950.3 12/31/2014 ZAY GERMAN, JAVON Lopez Ot V58.69 12/31/2014 ZAY GERMAN, JAVON Lopez Ot 295.90 12/31/2014 ZAY GERMAN, JAVON Lopez Ot 305.1 12/31/2014 ZAY GERMAN, JAVON Lopez Ot 969.3 12/31/2014 ZAY GERMAN, JAVON Lopez Ot E950.3 12/31/2014 ZAY GERMAN, JAVON Lopez Ot V58.69 04/14/2015 ALETHEA GERMAN, PILY Arnett Ot 786.50 05/07/2015 CONRADO MAYA Ot 276.8 05/07/2015 CONRADO MAYA Ot 285.9 05/07/2015 CONRADO MAYA Ot 295.90 05/07/2015 CONRADO MAYA Ot V62.84 10/01/2015 Ot F17.210 10/01/2015 Ot N39.0 10/01/2015 Ot R45.851 10/01/2015 Ot T43.8X2A 10/01/2015 Ot Y92.009 Procedures Code [place] [address] ROUTINE VENIPUNCTURE 06/04/2014 63126 CBC 06/04/2014 6284569 GFR CALC (RESULT ONLY) 06/04/2014 16634 CMP 06/04/2014 34526 LIPID PANEL 06/04/2014 31107 TSH 06/04/2014 Results Test Result Range CBC With Differential/Platelet - 04/20/17 08:13 WBC 9.4 x10E3/uL 3.4-10.8 RBC 3.83 x10E6/uL 3.77-5.28 Hemoglobin 9.9 g/dL 11.1-15.9 Hematocrit 32.5 % 34.0-46.6 MCV 85 fL 79-97 MCH 25.8 pg 26.6-33.0 MCHC 30.5 g/dL 31.5-35.7 RDW 16.9 % 12.3-15.4 Platelets 434 x10E3/uL 150-379 Neutrophils 69 % Lymphs 20 % Monocytes 7 % Eos 3 % Basos 0 % Neutrophils (Absolute) 6.5 x10E3/uL 1.4-7.0 Lymphs (Absolute) 1.9 x10E3/uL 0.7-3.1 Monocytes(Absolute) 0.7 x10E3/uL 0.1-0.9 Eos (Absolute) 0.3 x10E3/uL 0.0-0.4 Baso (Absolute) 0.0 x10E3/uL 0.0-0.2 Immature Granulocytes 1 % Immature Grans (Abs) 0.1 x10E3/uL 0.0-0.1 Comp. Metabolic Panel (14) - 04/20/17 08:13 Glucose, Serum 91 mg/dL 65-99 BUN 15 mg/dL 6-24 Creatinine, Serum 0.82 mg/dL 0.57-1.00 eGFR If NonAfricn Am 87 mL/min/1.73 >59 eGFR If Africn Am 101 mL/min/1.73 >59 BUN/Creatinine Ratio 18 9-23 Sodium, Serum 140 mmol/L 134-144 Potassium, Serum 4.3 mmol/L 3.5-5.2 Chloride, Serum 103 mmol/L 96-106 Carbon Dioxide, Total 21 mmol/L 18-29 Calcium, Serum 8.8 mg/dL 8.7-10.2 Protein, Total, Serum 7.2 g/dL 6.0-8.5 Albumin, Serum 3.9 g/dL 3.5-5.5 Globulin, Total 3.3 g/dL 1.5-4.5 A/G Ratio 1.2 1.2-2.2 Bilirubin, Total 0.4 mg/dL 0.0-1.2 Alkaline Phosphatase, S 118 IU/L 39-117 AST (SGOT) 11 IU/L 0-40 ALT (SGPT) 18 IU/L 0-32 Lipid Panel - 04/20/17 08:13 Cholesterol, Total 103 mg/dL 100-199 Triglycerides 70 mg/dL 0-149 HDL Cholesterol 43 mg/dL >39 VLDL Cholesterol Anil 14 mg/dL 5-40 LDL Cholesterol Calc 46 mg/dL 0-99 Complete blood count (CBC) with automated white blood cell (WBC) differential - 04/05/18 21:15 Blood leukocytes automated count (number/volume) 16.0 10*3/uL 4.3-11.0 Blood erythrocytes automated count (number/volume) 4.01 10*6/uL 4.35-5.85 Venous blood hemoglobin measurement (mass/volume) 9.9 g/dL 11.5-16.0 Blood hematocrit (volume fraction) 32 % 35-52 Automated erythrocyte mean corpuscular volume 80 [foz_us] 80-99 Automated erythrocyte mean corpuscular hemoglobin (mass per erythrocyte) 25 pg 25-34 Automated erythrocyte mean corpuscular hemoglobin concentration measurement ( mass/volume) 31 g/dL 32-36 Automated erythrocyte distribution width ratio 16.8 % 10.0-14.5 Automated blood platelet count (count/volume) 511 10*3/uL 130-400 Automated blood platelet mean volume measurement 8.6 [foz_us] 7.4-10.4 Automated blood neutrophils/100 leukocytes 81 % 42-75 Automated blood lymphocytes/100 leukocytes 12 % 12-44 Blood monocytes/100 leukocytes 6 % 0-12 Automated blood eosinophils/100 leukocytes 2 % 0-10 Automated blood basophils/100 leukocytes 0 % 0-10 Blood neutrophils automated count (number/volume) 12.9 10*3 1.8-7.8 Blood lymphocytes automated count (number/volume) 1.9 10*3 1.0-4.0 Blood monocytes automated count (number/volume) 0.9 10*3 0.0-1.0 Automated eosinophil count 0.2 10*3/uL 0.0-0.3 Automated blood basophil count (count/volume) 0.0 10*3/uL 0.0-0.1 Serum or plasma choriogonadotropin ( test) detection - 04/05/18 21:15 Serum or plasma choriogonadotropin ( test) detection NEGATIVE NEGATIVE Blood manual differential performed detection - 04/05/18 21:15 Blood monocytes/100 leukocytes 4 % NRG Manual blood segmented neutrophils/100 leukocytes 83 % NRG Blood band neutrophils/100 leukocytes 0 % NRG Manual blood lymphocytes/100 leukocytes 11 % NRG Manual eosinophils/100 leukocytes in nose 0 % NRG Manual blood basophils/100 leukocytes 2 % NRG Blood erythrocyte morphology finding identification [facility] Comprehensive metabolic panel - 04/05/18 21:15 Serum or plasma sodium measurement (moles/volume) 142 mmol/L 135-145 Serum or plasma potassium measurement (moles/volume) 4.1 mmol/L 3.6-5.0 Serum or plasma chloride measurement (moles/volume) 110 mmol/L 98-107 Carbon dioxide 21 mmol/L 21-32 Serum or plasma anion gap determination (moles/volume) 11 mmol/L 5-14 Serum or plasma urea nitrogen measurement (mass/volume) 12 mg/dL 7-18 Serum or plasma creatinine measurement (mass/volume) 1.12 mg/dL 0.60-1.30 Serum or plasma urea nitrogen/creatinine mass ratio 11 NRG Serum or plasma creatinine measurement with calculation of estimated glomerular filtration rate > NRG Serum or plasma glucose measurement (mass/volume) 114 mg/dL 70-105 Serum or plasma calcium measurement (mass/volume) 9.6 mg/dL 8.5-10.1 Serum or plasma total bilirubin measurement (mass/volume) 0.3 mg/dL 0.1-1.0 Serum or plasma alkaline phosphatase measurement (enzymatic activity/volume) 150 U/L 40-136 Serum or plasma aspartate aminotransferase measurement (enzymatic activity/ volume) 17 U/L 5-34 Serum or plasma alanine aminotransferase measurement (enzymatic activity/volume ) 21 U/L 0-55 Serum or plasma protein measurement (mass/volume) 7.8 g/dL 6.4-8.2 Serum or plasma albumin measurement (mass/volume) 4.1 g/dL 3.2-4.5 Serum or plasma amylase measurement (enzymatic activity/volume) - 04/05/18 21: 15 Serum or plasma amylase measurement (enzymatic activity/volume) 43 U /L 25-125 Lipase - 04/05/18 21:15 Lipase 27 U/L 8-78 Complete urinalysis with reflex to culture - 04/05/18 21:19 Urine color determination OTHER NRG Urine clarity determination VERY CLOUDY NRG Urine pH measurement by test strip 7 5-9 Specific gravity of urine by test strip 1.010 1.016- 1.022 Urine protein assay by test strip, semi-quantitative 4+ NEGATIVE Urine glucose detection by automated test strip NEGATIVE NEGATIVE Erythrocytes detection in urine sediment by light microscopy 5+ NEGATIVE Urine ketones detection by automated test strip NEGATIVE NEGATIVE Urine nitrite detection by test strip NEGATIVE NEGATIVE Urine total bilirubin detection by test strip NEGATIVE NEGATIVE Urine urobilinogen measurement by automated test strip (mass/volume) NORMAL NORMAL Urine leukocyte esterase detection by dipstick 3+ NEGATIVE Automated urine sediment erythrocyte count by microscopy (number/high power field) > [HPF] NRG Automated urine sediment leukocyte count by microscopy (number/high power field ) [HPF] NRG Bacteria detection in urine sediment by light microscopy FEW NRG Squamous epithelial cells detection in urine sediment by light microscopy 0-2 NRG Crystals detection in urine sediment by light microscopy NONE NRG Casts detection in urine sediment by light microscopy NONE NRG Mucus detection in urine sediment by light microscopy NEGATIVE NRG Complete urinalysis with reflex to culture YES NRG Urine drug screening test - 04/05/18 21:19 Urine phencyclidine detection by screening method NEGATIVE NEGATIVE Urine benzodiazepines detection by screening method NEGATIVE NEGATIVE Urine cocaine detection NEGATIVE NEGATIVE Urine amphetamines detection by screening method NEGATIVE NEGATIVE Urine methamphetamine detection by screening method NEGATIVE NEGATIVE Urine cannabinoids detection by screening method NEGATIVE NEGATIVE Urine opiates detection by screening method NEGATIVE NEGATIVE Urine barbiturates detection NEGATIVE NEGATIVE Screening urine tricyclic antidepressants detection POSITIVE NEGATIVE Urine methadone detection by screening method NEGATIVE NEGATIVE Urine oxycodone detection NEGATIVE NEGATIVE Urine propoxyphene detection NEGATIVE NEGATIVE Bacterial urine culture - 04/05/18 21:19 Bacterial urine culture RML NRG COLONY COUNT . NRG Blood lactic acid measurement (moles/volume) - 04/05/18 21:27 Blood lactic acid measurement (moles/volume) 1.41 mmol/L 0.50-2.00 Bacterial blood culture - 04/05/18 21:27 Bacterial blood culture NG NRG Bacterial blood culture - 04/05/18 22:00 QUANTITY OF GROWTH . NRG Bacterial blood culture SEE COMMEN NRG Encounters ACCT No. Visit Date/Time Discharge Status Pt. Type Provider Facility Loc./Unit Complaint [id number] 06/04/2014 07:54:00 06/04/2014 23:59:59 CLS Outpatient DAE ALBAN GUEVARA APRN Roderick [id number] 09/17/2013 14:45:00 09/17/2013 23:59:59 [place] [id number] 03/20/2018 11:00:00 03/20/2018 23:59:59 CLS Outpatient ALISSA HEAD [facility] [id number] 05/07/2015 12:39:00 05/07/2015 15:49:00 DIS Emergency CONRADO MAYA [facility] ER [id number] 04/13/2015 22:42:00 04/14/2015 01:25:00 DIS Emergency PILY CLAIRE MD [facility] ER [id number] 12/30/2014 22:10:00 12/31/2014 11:30:00 DIS Inpatient ZAY GERMAN, JAVON Lopez [facility] ICU [id number] 02/27/2013 21:28:00 02/27/2013 22:40:00 DIS Emergency CONRADO MAYA [facility] ER [id number] 01/10/2013 18:57:00 01/10/2013 20:19:00 DIS Emergency YULIANA JEFFRIES DO [facility] ER [id number] 04/05/2018 21:26:00 Document Registration [id number] 10/01/2015 20:15:00 Document Registration [id number] 07/11/2012 16:52:00 Document Registration [id number] 05/11/2011 15:49:00 Document Registration [id number] 04/21/2017 11:08:00 Document Registration [id number] 05/07/2015 12:40:35 ACT Document Registration
[2018-04-19] MEDS ORDERED: cefTRIAXone INJECTION 1,000 MG in NS (IVPB) 50 ML IV ONE (09:15)
[2018-04-19 09:20] VITALS: BP 138/85
--- NOTE | 2018-04-19 09:25 | Progress Note-Pre Operative ---
Pre-Operative Progress Note H&P Reviewed The H&P was reviewed, patient examined and no changes noted. Date Seen by Provider: Apr 19, 2018 Time Seen by Provider: 09:24 Date H&P Reviewed: Apr 19, 2018 Time H&P Reviewed: 09:24 Pre-Operative Diagnosis: LT URETERALSTONE, RT RENAL STONES, POSSIBLE RT URETERAL STONE DARYL EGAN MD Apr 19, 2018 9:25 am
[2018-04-19] MEDS ORDERED: CATHETER FLUSH 10 ML SYR IV PRN (09:30)
--- NOTE | 2018-04-19 09:41 | Diagnostic Imaging Report ---
INDICATION: Lithotripsy Study correlated with plain films one day prior as well as with head CT 04/05/2018. FINDINGS: On the previous CT there was a large left ureteral stone which radiographically is not apparent. Adnexal calcifications and right pelvic phleboliths unchanged. Intrarenal stone burden on the right is not appreciably changed from prior CT. IMPRESSION: Right-sided intrarenal calculus unchanged. Extra ureteral pelvic calcifications unchanged. The distal left ureteral stone present on an earlier CT cannot be clearly identified. Dictated by: Dictated on workstation # [id number]
[2018-04-19] MEDS ORDERED: LACTATED RINGERS 1,000 ML IV SCH (10:00)
[2018-04-19] MEDS ORDERED: DEXAMETHASONE 10 MG/ML (DECADRON) 1 ML VIAL ONE (11:11)
[2018-04-19] MEDS ORDERED: fentaNYL INJECTION 100 MCG/2 ML AMP ONE (11:11)
[2018-04-19] MEDS ORDERED: ONDANSETRON 4 MG/2 ML (SDV) Z0FRAN ONE (11:11)
[2018-04-19] MEDS ORDERED: ROCURONIUM 10 MG/ML 5 ML SYRINGE IV ONE (11:11)
[2018-04-19] MEDS ORDERED: SEVOFLURANE (ULTANE) 15 ML INHAL SOLN ONE ×2 (11:11→12:50)
[2018-04-19] MEDS ORDERED: LIDOCAINE PF 2% 5 ML (XYLOCAINE) VIAL ONE (11:11)
[2018-04-19] MEDS ORDERED: proPOfol 200 MG/20 ML (DIPRIVAN) VIAL IV ONE (11:11)
[2018-04-19] MEDS ORDERED: MIDAZOLAM 2 MG/2 ML (VERSED) VIAL ONE (11:12)
--- NOTE | 2018-04-19 11:21 | Progress Note-Post Operative ---
Post-Operative Progess Note Surgeon (s)/Mechanical Pencils Assembler (s) Surgeon DARYL EGAN MD Mechanical Pencils Assembler: N/A Pre-Operative Diagnosis LT URETERAL STONE, RT RENAL STONES, POSSIBLE RT URETERAL STONE Post-Operative Diagnosis SAME Procedure & Operative Findings Date of Procedure 04/19/18 Procedure Performed/Findings BILATERAL URETEROSCOPIES AND RT ESWL Anesthesia Type GENERAL Estimated Blood Loss Estimated blood loss (mL): N/A Specimens/Packing Specimens Removed N/A Packing: N/A DARYL EGAN MD Apr 19, 2018 11:21 am
--- NOTE | 2018-04-19 11:23 | Discharge Inst-Urology ---
Discharge Inst-Urology Patient Instructions/Follow Up Plan Please make appointment to been seen in office in 2 weeks, KUB prior to it. KUB on way home Post ESWL instructions Increase oral fluids for 48 hours and then as needed. Diet and Activity as tolerated. If questions or concerns contact your physician Or seek help at emergency department. DARYL EGAN MD Apr 19, 2018 11:23 am
[2018-04-19] MEDS ORDERED: GLYCOPYRROLATE 0.2 MG/ML (ROBINUL) 2 ML VIAL ONE ×2 (11:43→12:49)
[2018-04-19] MEDS ORDERED: ONDANSETRON 4 MG/2 ML (SDV) Z0FRAN IVP PRN (12:45)
[2018-04-19] MEDS ORDERED: fentaNYL INJECTION 100 MCG/2 ML AMP IVP PRN (12:45)
[2018-04-19] MEDS ORDERED: HYDROmorphone 2 MG/ML VIAL (DILAUDID) IV PRN (12:45)
[2018-04-19] MEDS ORDERED: NEOSTIGMINE 1 MG/ML 5 ML SYRINGE ONE (12:49)
[2018-04-19] MEDS ORDERED: PHEN-640 PO (13:39)
[2018-04-19] MEDS ORDERED: TAMS0.4C98 PO (13:39)
[2018-04-19 13:40] VITALS: BP 133/72
[2018-04-19] MEDS ORDERED: HYDROcodone/APAP 5 MG/325 MG (LORTAB) TAB ONE (13:48)
[2018-04-19] MEDS ORDERED: PHENAZOPYRIDINE 100 MG (PYRIDIUM) TABLET ONE (13:48)
[2018-04-19] MEDS ORDERED: HYDROcodone/APAP 5 MG/325 MG (LORTAB) TAB PO PRN (14:00)
[2018-04-19] MEDS ORDERED: PHENAZOPYRIDINE 100 MG (PYRIDIUM) TABLET PO ONE (14:00)
[2018-04-19 14:10] VITALS: BP 125/81
[2018-04-19 14:20] VITALS: BP 125/81
--- NOTE | 2018-04-19 14:58 | Anesthesia-General Post-Op ---
General Patient Condition Mental Status/LOC: Same as Preop Cardiovascular: Satisfactory Nausea/Vomiting: Absent Respiratory: Satisfactory Pain: Controlled Complications: Absent Post Op Complications Complications None Follow Up Care/Instructions Patient Instructions None needed. Anesthesia/Patient Condition Patient Condition Patient is doing well, no complaints, stable vital signs, no apparent adverse anesthesia problems. No complications reported per nursing. CHARLY SALAZAR CRNA Apr 19, 2018 14:58
--- NOTE | 2018-04-19 15:27 | Diagnostic Imaging Report ---
Indication: Status post lithotripsy. Time of exam: 2:49 PM Correlation is made with prior study earlier same day. There has been fragmentation of calculi overlying the upper and lower poles of the right kidney. The left kidney is obscured. No calculi along the course of the ureters is seen. Impression: Fragmentation of right-sided calculi, status post lithotripsy. Dictated by: Dictated on workstation # [id number]
--- NOTE | 2018-04-19 21:15 | OPERATIVE REPORT ---
DATE OF SERVICE: 04/19/2018 PREOPERATIVE DIAGNOSES: Bilateral distal ureteral stone and right renal stones. POSTOPERATIVE DIAGNOSES: Bilateral distal ureteral stone and right renal stones. OPERATION PERFORMED: Bilateral ureteroscopies and right ESWL. SURGEON: Alden Egan MD ANESTHESIA: General. COMPLICATIONS: None. DESCRIPTION OF PROCEDURE: Under satisfactory general anesthesia, the patient in lithotomy position, genitalia were prepped and draped in usual sterile fashion. Cystoscope was introduced under vision. The bladder was normal. I went ahead and dilated both right and left ureteral orifice intramural portion to accommodate a 6.9 Italian semi-rigid ureteroscope flushed on the right side went up all the way to the kidney antegrade and retrograde couple of times. There was no stone. The same thing on the left side up and down a couple of times, no stones again. I removed the ureteroscope and I reinserted the cystoscope into the bladder, moved the patient to the ESWL table in supine. The right renal stones were localized and two pieces responded very well to shock. A total of 1500 completely fragmented both. Patient received 30 mg of Toradol and 40 mg of Lasix IV at the end of the procedure. She tolerated the procedure and anesthesia well and was sent to recovery room in stable condition. Job ID: [id number] DocumentID: [id number] Dictated Date: 04/19/2018 12:27:39 [facility] Date: 04/19/2018 21:14:33 Dictated By: ALDEN EGAN MD [facility]
== END 2018-04-19 14:40 | disposition home or self-care (01) ==
LOC: SDC 08:53
PROVIDERS: ATTEND Urology
DX: N20.1 Calculus of ureter (principal); N20.0 Calculus of kidney; Z11.2 Encounter for screening for other bacterial diseases; K80.20 Calculus of gallbladder without cholecystitis without obstruction; F41.9 Anxiety disorder, unspecified; F32.9 Major depressive disorder, single episode, unspecified; I10 Essential (primary) hypertension; F20.9 Schizophrenia, unspecified; K21.9 Gastro-esophageal reflux disease without esophagitis; Z79.899 Other long term (current) drug therapy
CPT/HCPCS: 74018; 84703; 87081

== ENCOUNTER 2019-02-25 17:20 | Emergency (ER) | payer MEDICAID | END 2019-02-25 18:36 | disposition home or self-care (01) | LOC: ER 17:20 ==

== ENCOUNTER 2019-03-16 11:35 | Emergency (ER) | payer MEDICAID ==
[~2019-03-16] VITALS: Ht 154.9 cm; Wt 102.1 kg
[~2019-03-16 11:35] MED LIST changes: +HYDR-3820 PO; +PHEN-640 PO
--- NOTE | 2019-03-16 12:00 | NUR ---
pt here with " boyfriend". pt alert gcs 15. pt was at home at 0200 and went to use bathroom and c/o sudden onset low back pain. pt has h/o kidney stones. pt also relates on period so blood in ua and also c/o ua more then usual. pain rating 5. pt denies abd pain . pt relates she took peptol bismol cause she thought the pain was relates to the abd cause she was nauseous. pt denies v/d. lungs cta bilaterally. abd soft nondistended tender to palpation rlq abd as " little bit not really". pt to bathroom for ua and done seing pt at 1207.
[2019-03-16] MEDS ORDERED: KETOROLAC 30 MG/ML VIAL IVP ONE (12:15)
[2019-03-16] MEDS ORDERED: NS IV 1000 ML 1,000 ML IV SCH (12:15)
[2019-03-16] MEDS ORDERED: ONDANSETRON 4 MG/2 ML (SDV) Z0FRAN IVP ONE (12:15)
--- NOTE | 2019-03-16 12:19 | ED GU-Female ---
General Stated Complaint: LOWER BACK PAIN Source: patient Exam Limitations: no limitations History of Present Illness Date Seen by Provider: Mar 16, 2019 Time Seen by Provider: 12:17 Initial Comments To ER per private vehicle with reports of midline low back pain that began last night. She awakened at 2 AM was having urinary frequency. She thought this may be related to a gastrointestinal illness as she also had some lower abdominal cramping. She denies fevers or chills but she has had nausea and is still somewhat nauseated. She reports a history of kidney stones. She is currently on her menstrual period. Timing/Duration: constant Severity/Quality: moderate Location: generalized flank Radiation: none Prior Genitourinary Problems: none Associated Symptoms: lower back pain, nausea/vomiting, urinary frequency Allergies and Home Medications Allergies Coded Allergies: Penicillins (Verified Allergy, Unknown, Pt has received Ceftriaxone in the past w/o issue, 04/25/18) Home Medications Aripiprazole 400 Mg Suser.vial, 400 MG IM UD, (Reported) Cefuroxime Axetil 500 Mg Tablet, 500 MG PO BID Prescribed by: HANNAH SOSA on 03/16/19 1308 Fluoxetine HCl 20 Mg Capsule, 1 CAP PO DAILY, (Reported) Hydrocodone/Acetaminophen 1 Each Tablet, 1 TAB PO Q6H Prescribed by: BRIANNA ERAZO on 04/27/18 1044 Lisinopril 10 Mg Tablet, 10 MG PO DAILY, (Reported) Ondansetron 8 Mg Tab.rapdis, 8 MG PO Q6H PRN for NAUSEA/VOMITING Prescribed by: HANNAH SOSA on 03/16/19 1308 Oxycodone HCl/Acetaminophen 1 Each Tablet, 1 TAB PO Q4H Prescribed by: HANNAH SOSA on 03/16/19 1308 Potassium Chloride 20 Meq Tablet.er, 20 MEQ PO BID Prescribed by: CONRADO PAUL on 05/07/15 1532 Quetiapine Fumarate 200 Mg Tablet, 1 TAB PO DAILY, (Reported) Tamsulosin HCl 0.4 Mg Cap, 0.4 MG PO DAILY Prescribed by: HANNAH SOSA on 03/16/19 1308 Patient Home Medication List Home Medication List Reviewed: Yes Review of Systems Review of Systems Constitutional: see HPI; No fever EENTM: see HPI Respiratory: no symptoms reported Cardiovascular: no symptoms reported Gastrointestinal: nausea Genitourinary: see HPI, frequency, flank pain Musculoskeletal: no symptoms reported Skin: no symptoms reported Psychiatric/Neurological: No Symptoms Reported Past Rfhbndf-Yirkyv-Atksmp Hx Patient Social History Type Used: Cigarettes Recent Foreign Travel: No Contact w/Someone Who Travel: No Recent Hopitalizations: No Immunizations Up To Date Tetanus Booster (TDap): Unknown PED Vaccines UTD: Yes Date of Influenza Vaccine: Jun 11, 2015 Seasonal Allergies Seasonal Allergies: No Past Medical History Surgeries: Yes (ESWL) Tubal Ligation Respiratory: No Cardiac: Yes Hypertension Neurological: No Reproductive Disorders: No Female 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 No Pertinent Family Hx Physical Exam Vital Signs Capillary Refill : Height, Weight, BMI Height: 5'1.00" Weight: 220lbs. 0.0oz. 99.635878en; 43.5 BMI Method:Stated General Appearance: WD/WN, no apparent distress HEENT: PERRL/EOMI, normal ENT inspection Respiratory: no respiratory distress, no accessory muscle use Gastrointestinal: normal bowel sounds, non tender, soft Back: CVA tenderness (R), CVA tenderness (L) Neurologic/Psychiatric: alert, normal mood/affect, oriented x 3 Skin: normal color, warm/dry Progress/Results/Core Measures Suspected Sepsis SIRS Temperature: Pulse: Respiratory Rate: Laboratory Tests 03/16/19 12:18: White Blood Count 13.6H Blood Pressure / Mean: Laboratory Tests 03/16/19 12:18: Creatinine 1.25, Platelet Count 425H, Total Bilirubin 0.4 Results/Orders Lab Results Laboratory Tests Test 03/16/19 12:10 03/16/19 12:18 Range/Units Urine Color YELLOW Urine Clarity CLEAR Urine pH 7 5-9 Urine Specific Lancing 1.005 L 1.016-1.022 Urine Protein 2+ H NEGATIVE Urine Glucose (UA) NEGATIVE NEGATIVE Urine Ketones NEGATIVE NEGATIVE Urine Nitrite NEGATIVE NEGATIVE Urine Bilirubin NEGATIVE NEGATIVE Urine Urobilinogen NORMAL NORMAL MG/DL Urine Leukocyte Esterase 2+ H NEGATIVE Urine RBC (Auto) 5+ H NEGATIVE Urine RBC 10-25 H /HPF Urine WBC 2-5 /HPF Urine Squamous Epithelial Cells 5-10 /HPF Urine Crystals NONE /LPF Urine Bacteria MODERATE H /HPF Urine Casts NONE /LPF Urine Mucus NEGATIVE /LPF Urine Culture Indicated YES White Blood Count 13.6 H 4.3-11.0 10^3/uL Red Blood Count 4.07 L 4.35-5.85 10^6/uL Hemoglobin 9.1 L 11.5-16.0 G/DL Hematocrit 31 L 35-52 % Mean Corpuscular Volume 76 L 80-99 FL Mean Corpuscular Hemoglobin 22 L 25-34 PG Mean Corpuscular Hemoglobin Concent 29 L 32-36 G/DL Red Cell Distribution Width 20.4 H 10.0-14.5 % Platelet Count 425 H 130-400 10^3/uL Mean Platelet Volume 8.6 7.4-10.4 FL Neutrophils (%) (Auto) 80 H 42-75 % Lymphocytes (%) (Auto) 14 12-44 % Monocytes (%) (Auto) 5 0-12 % Eosinophils (%) (Auto) 1 0-10 % Basophils (%) (Auto) 0 0-10 % Neutrophils # (Auto) 10.8 H 1.8-7.8 X 10^3 Lymphocytes # (Auto) 1.9 1.0-4.0 X 10^3 Monocytes # (Auto) 0.7 0.0-1.0 X 10^3 Eosinophils # (Auto) 0.2 0.0-0.3 10^3/uL Basophils # (Auto) 0.0 0.0-0.1 10^3/uL Sodium Level 141 135-145 MMOL/L Potassium Level 3.9 3.6-5.0 MMOL/L Chloride Level 107 98-107 MMOL/L Carbon Dioxide Level 22 21-32 MMOL/L Anion Gap 12 5-14 MMOL/L Blood Urea Nitrogen 14 7-18 MG/DL Creatinine 1.25 0.60-1.30 MG/DL Estimat Glomerular Filtration Rate 56 BUN/Creatinine Ratio 11 Glucose Level 80 70-105 MG/DL Calcium Level 9.2 8.5-10.1 MG/DL Corrected Calcium 9.2 8.5-10.1 MG/DL Total Bilirubin 0.4 0.1-1.0 MG/DL Aspartate Amino Transf (AST/SGOT) 16 5-34 U/L Alanine Aminotransferase (ALT/SGPT) 28 0-55 U/L Alkaline Phosphatase 132 40-136 U/L Total Protein 7.7 6.4-8.2 GM/DL Albumin 4.0 3.2-4.5 GM/DL My Orders Orders - HANNAH SOSA APRN Ua Culture If Indicated (03/16/19 11:50) Urine Bedside (03/16/19 11:50) Cbc With Automated Diff (03/16/19 12:04) Comprehensive Metabolic Panel (03/16/19 12:04) Ed Iv/Invasive Line Start (03/16/19 12:04) Ondansetron Injection (Zofran Injectio (03/16/19 12:15) Ketorolac Injection (Toradol Injection) (03/16/19 12:15) Ns Iv 1000 Ml (Sodium Chloride 0.9%) (03/16/19 12:15) Ct Abd/Pelvis Wo(Kidney Stone) (03/16/19 12:04) Urine Culture (03/16/19 12:10) Ceftriaxone For Iv Use (Rocephin For I (03/16/19 13:15) Tamsulosin Capsule (Flomax Capsule) (03/16/19 13:15) Medications Given in ED Current Medications Medications Dose Ordered Sig/Mikki Route Start Time Stop Time Status Last Admin Dose Admin Ketorolac Tromethamine 15 mg ONCE ONCE IVP 03/16/19 12:15 03/16/19 12:16 DC 03/16/19 12:22 15 MG Ondansetron HCl 4 mg ONCE ONCE IVP 03/16/19 12:15 03/16/19 12:16 DC 03/16/19 12:21 4 MG Vital Signs/I&O Capillary Refill : Departure Communication (Admissions) NAME: JAIMEE RAY [facility] REC#: [id number] PT STATUS: REG ER : 1970 PHYSICIAN: HANNAH SOSA APRN ADMIT DATE: 03/16/19/ER Draft Date of Exam:03/16/19 CT ABD/PELVIS WO(KIDNEY STONE) PROCEDURE: CT urinary tract, rule out kidney stone. TECHNIQUE: Multiple contiguous axial images were obtained through the abdomen and pelvis without the use of intravenous contrast. Auto Exposure Controls were utilized during the CT exam to meet ALARA standards for radiation dose reduction. INDICATION: Right-sided abdominal pain. FINDINGS: Comparison is 04/05/2018. Limited views of the lower thorax are normal. The liver is normal. Gallbladder is absent. No biliary ductal dilation. Pancreas, spleen, and adrenal glands are normal. There is an obstructing 7 mm stone in the distal right ureter with sbjocose-ti-ngycpr right-sided hydroureter and hydronephrosis. Approximately six additional right-sided stones are seen. There are approximately three left-sided renal stones. There is mild left-sided hydronephrosis, but no obstructing stones are seen in the left ureter. Urinary bladder is normal. The uterus and adnexa are normal. There are no dilated loops of large or small bowel. The appendix is normal. No abdominal or pelvic lymphadenopathy. There is a fat-containing ventral abdominal hernia. No suspicious osseous lesions. IMPRESSION: 1. Obstructing 7 mm distal right ureteral stone with jhjkrugd-yy-wsnnos right-sided hydronephrosis and hydroureter. 2. Mild left-sided hydronephrosis without obstructing stone seen. Dictated on workstation # [id number] Dict: 03/16/19 1302 Trans: 03/16/19 1309 [id number] Interpreted by: MIRTA RODRIGUEZ MD Electronically signed by: Impression Primary Impression: Right ureteral calculus Disposition: HOME, SELF-CARE Condition: Stable Departure-Patient Inst. Decision time for Depature: 13:04 Referrals: [facility] [place] (PCP/Family) Primary Care Physician DARYL EGAN MD Patient Instructions: Kidney Stones (DC) Add. Discharge Instructions: 1. Medication as directed 2. Return to ER for any concerns 3. Follow-up with Dr. Egan. Call today to make an appointment to be seen for follow-up next week. Return to ER in the meantime for any intolerable pain, fever or uncontrollable vomiting or other concerns. Scripts Ondansetron (Ondansetron Odt) 8 Mg Tab.rapdis 8 MG PO Q6H PRN for NAUSEA/VOMITING, #10 TAB Prov: HANNAH SOSA MAINTENANCE [employer]CH[employer]IC [employer] 03/16/19 Oxycodone HCl/Acetaminophen (Percocet 5-325 mg Tablet) 1 Each Tablet 1 TAB PO Q4H for PAIN-MODERATE MDD 6 TABS for 7 Days, #30 TAB Prov: HANNAH SOSA APRN 03/16/19 Tamsulosin HCl (Flomax) 0.4 Mg Cap 0.4 MG PO DAILY, #10 CAP Prov: HANNAH SOSA APRN 03/16/19 Cefuroxime Axetil (Cefuroxime) 500 Mg Tablet 500 MG PO BID, #10 TAB Prov: HANNAH SOSA APRN 03/16/19 Copy Copies To 1: DARYL EGAN MD, PETER J APRN Mar 16, 2019 12:19
--- NOTE | 2019-03-16 12:25 | NUR ---
ua and labs to lab by me
--- NOTE | 2019-03-16 12:28 | NUR ---
ua hcg by me is neg
[2019-03-16 12:29] LABS: BASOPHILS % (AUTO) 0 % (0-10); EOSINOPHILS # (AUTO) 0.2 10^3/uL (0.0-0.3); EOSINOPHILS % (AUTO) 1 % (0-10); HEMATOCRIT 31 % (35-52); HEMOGLOBIN 9.1 G/DL (11.5-16.0); LYMPHOCYTES # (AUTO) 1.9 X 10^3 (1.0-4.0); LYMPHOCYTES % (AUTO) 14 % (12-44); MEAN CORPUSCULAR HEMOGLOBIN 22 PG (25-34); MEAN CORPUSCULAR HGB CONC 29 G/DL (32-36); MEAN CORPUSCULAR VOLUME 76 FL (80-99); MEAN PLATELET VOLUME 8.6 FL (7.4-10.4); MONOCYTES # (AUTO) 0.7 X 10^3 (0.0-1.0); MONOCYTES % (AUTO) 5 % (0-12); NEUTROPHILS # (AUTO) 10.8 X 10^3 (1.8-7.8); NEUTROPHILS % (AUTO) 80 % (42-75); PLATELET COUNT 425 10^3/uL (130-400); RED CELL DISTRIBUTION WIDTH 20.4 % (10.0-14.5); WHITE BLOOD COUNT 13.6 10^3/uL (4.3-11.0)
[2019-03-16 12:30] LABS: BILIRUBIN,URINE NEGATIVE (NEGATIVE); CLARITY,URINE CLEAR; COLOR,URINE YELLOW; GLUCOSE, URINE (UA) NEGATIVE (NEGATIVE); KETONES,URINE NEGATIVE (NEGATIVE); LEUKOCYTE ESTERASE ,URINE 2+ (NEGATIVE); NITRITE,URINE NEGATIVE (NEGATIVE); PH,URINE 7 (5-9); PROTEIN,URINE 2+ (NEGATIVE); UROBILINOGEN,URINE NORMAL (NORMAL)
[2019-03-16 12:39] LABS: BACTERIA,URINE MODERATE /HPF
[2019-03-16 12:48] LABS: BILIRUBIN,TOTAL 0.4 MG/DL (0.1-1.0); CALCIUM 9.2 MG/DL (8.5-10.1); CREATININE SERUM 1.25 MG/DL (0.60-1.30); POTASSIUM 3.9 MMOL/L (3.6-5.0); TOTAL PROTEIN 7.7 GM/DL (6.4-8.2)
[2019-03-16] MEDS ORDERED: OXYC1TAB87 PO (13:08)
[2019-03-16] MEDS ORDERED: ONDA8TAB13 PO (13:08)
[2019-03-16] MEDS ORDERED: TAMS0.4C98 PO (13:08)
[2019-03-16] MEDS ORDERED: CEFU500T63 PO (13:08)
--- NOTE | 2019-03-16 13:10 | Diagnostic Imaging Report ---
PROCEDURE: CT urinary tract, rule out kidney stone. TECHNIQUE: Multiple contiguous axial images were obtained through the abdomen and pelvis without the use of intravenous contrast. Auto Exposure Controls were utilized during the CT exam to meet ALARA standards for radiation dose reduction. INDICATION: Right-sided abdominal pain. FINDINGS: Comparison is 04/05/2018. Limited views of the lower thorax are normal. The liver is normal. Gallbladder is absent. No biliary ductal dilation. Pancreas, spleen, and adrenal glands are normal. There is an obstructing 7 mm stone in the distal right ureter with kiwzdmxe-tz-dusksl right-sided hydroureter and hydronephrosis. Approximately six additional right-sided stones are seen. There are approximately three left-sided renal stones. There is mild left-sided hydronephrosis, but no obstructing stones are seen in the left ureter. Urinary bladder is normal. The uterus and adnexa are normal. There are no dilated loops of large or small bowel. The appendix is normal. No abdominal or pelvic lymphadenopathy. There is a fat-containing ventral abdominal hernia. No suspicious osseous lesions. IMPRESSION: 1. Obstructing 7 mm distal right ureteral stone with xqfingxl-om-nrelts right-sided hydronephrosis and hydroureter. 2. Mild left-sided hydronephrosis without obstructing stone seen. Dictated by: Dictated on workstation # [id number]
[2019-03-16] MEDS ORDERED: cefTRIAXone FOR IV USE 1,000 MG in WATER (STERILE) FOR INJECTION 10 ML IV ONE (13:15)
[2019-03-16] MEDS ORDERED: TAMSULOSIN 0.4 MG (FLOMAX) CAP PO SCH (13:15)
--- NOTE | 2019-03-16 13:23 | NUR ---
bp machine is 136/95 ausc hr 80 reg ausc resp 20 normal recheck temp 98.1 p ox r/a is 98. bolus 1/2 done now on pump. pt still c/o nausea and no v/d noted in er visit thus far. pain continues rating 7-8.
--- NOTE | 2019-03-16 13:49 | NUR ---
dr says no need to get result of kub before pt gets d/cd. bolus is now completed.
[2019-03-16 13:57] VITALS: BP 145/105
--- NOTE | 2019-03-16 13:57 | Diagnostic Imaging Report ---
INDICATION: Right-sided kidney stone and hydronephrosis, seen on recent CT. COMPARISON: Correlation is made with CT study earlier same day. FINDINGS: Calcific density in the upper right pelvis is noted correlating with the ureteric calculus noted on CT. Intrarenal calculi overlie the right renal shadow as well. No definite left-sided ureteral calculi are seen. Bowel gas pattern is unremarkable. IMPRESSION: Right-sided urinary tract calculi, as described. Dictated by: Dictated on workstation # [id number]
--- NOTE | 2019-03-16 13:57 | NUR ---
d/c instructions to pt. told to read all papers. scripts paper and fax. pt left ambulatory with boyfriend. pt knows f/u. i went over the handtyped by information on the chart. iv d/cd by me prior to d/c. specipan and strainer and container for home use given. bolus was completed. wrote on pt d/c paper kub next tuesday before f/u.
--- OUTSIDE RECORDS SUMMARY | 2019-03-16 19:20 | XMS REPORT ---
Author Author VIANCA Chester Organization [facility] Address [address] [place] [address] Care Team Providers Care Barge Hand Name Role Phone VIANCA Chester Unavailable PROBLEMS Type Condition ICD9-CM Code OST15-QS Code Onset Dates Condition Status SNOMED Code Problem Family history of borderline diabetes mellitus Z83.3 Active 564214059 Problem HTN (hypertension) I10 Active 66674479 Problem Anxiety F41.9 Active 96642185 Problem Gallstones K80.20 Active 705418399 Problem Schizoaffective disorder F25.9 Active 98397777 Problem Elevated prolactin level E22.9 Active 092108966 Problem Allergic rhinitis, unspecified seasonality, unspecified trigger J30.9 Active 53554307 Problem Establishing care with new doctor, encounter for Z76.89 Active 432430343 Problem Impacted cerumen of both ears H61.23 Active 9055336348456720 Problem Kidney stones N20.0 Active 70313223 ALLERGIES No Information ENCOUNTERS Encounter Location Date Diagnosis [place] [id number] [place] [id number] Mar, [facility] [id number] [place] [phone] Feb, Viral URI J06.9 and Morbid obesity E66.01 [facility] [id number] [place] [address] Jul, Elevated prolactin level E22.9 [place] [id number] [place] [address] Apr, Schizoaffective disorder F25.9 ; Kidney stones N20.0 ; Gallstones K80.20 and BMI 40.0-44.9, adult Z68.41 [facility] [id number] [place] [address] Apr, [place] [address] [address] Mar, Gastroenteritis K52.9 and BMI 40.0-44.9, adult Z68.41 [place] [address] [address] Dec, Establishing care with new doctor, encounter for Z76.89 ; HTN (hypertension) I10 ; Schizoaffective disorder F25.9 ; Anxiety F41.9 ; Allergic rhinitis, unspecified seasonality, unspecified trigger J30.9 ; Impacted cerumen of both ears H61.23 and BMI 40.0-44.9, adult Z68.41 [place] [address] [address] Nov, [place] [address] [address] Oct, [place] [address] [address] Apr, [place] [address] [address] Apr, Family history of borderline diabetes mellitus Z83.3 [place] [id number] [place] [address] Apr, Family history of borderline diabetes mellitus Z83.3 ; Establishing care with new doctor, encounter for Z76.89 ; Screening cholesterol level Z13.220 ; HTN (hypertension) I10 ; Schizoaffective disorder F25.9 and Anxiety F41.9 [place] [address] [address] Apr, [place] [id number] [place] [address] Aug, Other viral agents as the cause of diseases classified elsewhere B97.89 and Acute upper respiratory infection, unspecified J06.9 [place] [id number] [place] [address] Jul, Encounter for immunization Z23 [place] [address] [address] Apr, HTN (hypertension) I10 and Family history of borderline diabetes mellitus Z83.3 [place] [address] [address] Nov, [place] [address] [address] Oct, HTN (hypertension) I10 ; Family history of borderline diabetes mellitus Z83.3 ; Schizoaffective disorder F25.9 and Anxiety F41.9 [place] [id number] [place] [address] Oct, [place] [address] [address] Sep, [place] [address] [id number] [place] [address] Jul, Major depression, recurrent F33.9 [place] [address] [id number] [place] [address] Jul, Encounter for immunization Z23 [place] [address] [address] [id number] [place] [address] May, Vaginal pain 625.9 and UTI (urinary tract infection) 599.0 [place] [address] [id number] [place] [address] Apr, Sinusitis 473.9 [place] [address] [address] Apr, [place] [address] [id number] [place] [address] Apr, [place] [address] [address] Apr, Encounter for routine gynecological examination V72.31 [facility] [id number] [address] Feb, [facility] [id number] [address] Dec, [facility] [address] [address] Dec, [facility] [address] [address] Oct, [facility] [address] [address] Oct, [facility] [address] [address] May, [facility] [address] [address] May, [facility] [id number] [address] Sep, [facility] [id number] [address] Sep, [facility] [id number] [address] Jul, IMMUNIZATIONS No Known Immunizations SOCIAL HISTORY Never Assessed REASON FOR VISIT PLAN OF CARE VITAL SIGNS MEDICATIONS Unknown Medications RESULTS No Results PROCEDURES No Known procedures INSTRUCTIONS MEDICATIONS ADMINISTERED No Known Medications MEDICAL (GENERAL) HISTORY Type Description Date Medical History schizoaffective disorder Medical History anxiety Medical History depression Medical History hypertension Surgical History tubal ligation Surgical History gallbladder removal 04/2018 Hospitalization History childbirth only Hospitalization History [facility] 09/2015 Hospitalization History Tubal ligation Hospitalization History gallbladder removal
--- OUTSIDE RECORDS SUMMARY | 2019-03-16 19:20 | XMS REPORT ---
Author Author Migration, Doctor Organization [facility] Address Unknown Phone Unavailable Care Team Providers Care Sericulture Teacher Name Role Phone Migration, Doctor Unavailable Unavailable PROBLEMS Type Condition ICD9-CM Code FPF54-TN Code Onset Dates Condition Status SNOMED Code Problem Family history of borderline diabetes mellitus Z83.3 Active 006828867 Problem HTN (hypertension) I10 Active 59522833 Problem Anxiety F41.9 Active 29555326 Problem Gallstones K80.20 Active 836991037 Problem Schizoaffective disorder F25.9 Active 27662909 Problem Elevated prolactin level E22.9 Active 884943698 Problem Allergic rhinitis, unspecified seasonality, unspecified trigger J30.9 Active 38908508 Problem Establishing care with new doctor, encounter for Z76.89 Active 654190687 Problem Impacted cerumen of both ears H61.23 Active 7556130351602182 Problem Kidney stones N20.0 Active 68826256 ALLERGIES Substance Reaction Event Type Date Status Penicillins Unknown Non Drug Allergy Dec, Active ENCOUNTERS Encounter Location Date Diagnosis [facility] [id number] [place] [address] Mar, [facility] [address] [address] Feb, Viral URI J06.9 and Morbid obesity E66.01 [facility] [id number] [place] [address] Jul, Elevated prolactin level E22.9 [place] [address] [address] Apr, Schizoaffective disorder F25.9 ; Kidney stones N20.0 ; Gallstones K80.20 and BMI 40.0-44.9, adult Z68.41 [facility] [address] [address] Apr, [place] [id number] [place] [address] Mar, Gastroenteritis K52.9 and BMI 40.0-44.9, adult Z68.41 [place] [id number] [place] [address] Dec, Establishing care with new doctor, encounter for Z76.89 ; HTN (hypertension) I10 ; Schizoaffective disorder F25.9 ; Anxiety F41.9 ; Allergic rhinitis, unspecified seasonality, unspecified trigger J30.9 ; Impacted cerumen of both ears H61.23 and BMI 40.0-44.9, adult Z68.41 [place] [address] [address] Nov, [place] [address] [address] Oct, [place] [address] [address] Apr, [place] [address] [address] Apr, Family history of borderline diabetes mellitus Z83.3 [place] [id number] [place] [address] Apr, Family history of borderline diabetes mellitus Z83.3 ; Establishing care with new doctor, encounter for Z76.89 ; Screening cholesterol level Z13.220 ; HTN (hypertension) I10 ; Schizoaffective disorder F25.9 and Anxiety F41.9 [place] [id number] [place] [address] Apr, [place] [address] [address] Aug, Other viral agents as the cause of diseases classified elsewhere B97.89 and Acute upper respiratory infection, unspecified J06.[address] [place] [address] Jul, Encounter for immunization Z23 [place] [address] [address] Apr, HTN (hypertension) I10 and Family history of borderline diabetes mellitus Z83.3 [place] [address] [address] Nov, [place] [address] [address] Oct, HTN (hypertension) I10 ; Family history of borderline diabetes mellitus Z83.3 ; Schizoaffective disorder F25.9 and Anxiety F41.9 [place] [address] [address] Oct, [place] [address] [address] Sep, [place] [address] [address] Jul, Major depression, recurrent F33.9 [place] [address] [address] Jul, Encounter for immunization Z23 [place] [address] [address] May, Vaginal pain 625.9 and UTI (urinary tract infection) 599.0 [place] [id number] [place] [address] Apr, Sinusitis 473.9 [place] [address] [address] Apr, [place] [address] [address] Apr, [place] [address] [address] Apr, Encounter for routine gynecological examination V72.31 [facility] [address] [facility] [id number] [address] Feb, [facility] [address] [facility] [id number] [address] Dec, [facility] [address] [facility] [id number], [place] [address] Dec, [facility] [address] [id number] [address] Oct, [facility] [address] [id number] [address] Oct, [facility] [address] [address] May, [facility] [address] [address] May, [facility] [address] [address] Sep, [facility] [address] [id number] [address] Sep, [facility] [address] [id number] [address] Jul, IMMUNIZATIONS No Known Immunizations SOCIAL HISTORY Never Assessed REASON FOR VISIT [facility] [place] C[place] VITAL SIGNS MEDICATIONS Medication Instructions Dosage Frequency Start Date End Date Duration Status Abilify by intramuscular route May, Active RESULTS No Results PROCEDURES No Known procedures INSTRUCTIONS MEDICATIONS ADMINISTERED No Known Medications MEDICAL (GENERAL) HISTORY Type Description Date Medical History schizoaffective disorder Medical History anxiety Medical History depression Medical History hypertension Surgical History tubal ligation Surgical History gallbladder removal 04/2018 Hospitalization History childbirth only Hospitalization History [facility] in [place] 09/2015 Hospitalization History Tubal ligation Hospitalization History gallbladder removal
--- OUTSIDE RECORDS SUMMARY | 2019-03-16 19:20 | XMS REPORT ---
Author Author ALISSA HEAD Organization [facility] Address [address] [place] [address] Care Team Providers Care Relocation Commissioner Name Role Phone ALISSA HEAD Unavailable PROBLEMS Type Condition ICD9-CM Code FSH89-IB Code Onset Dates Condition Status SNOMED Code Problem Schizoaffective disorder F25.9 Active 16029501 Problem HTN (hypertension) I10 Active 47225163 Problem Family history of borderline diabetes mellitus Z83.3 Active 089419009 Problem Kidney stones N20.0 Active 17876547 Problem Gallstones K80.20 Active 513182593 Problem Impacted cerumen of both ears H61.23 Active 8653100214702048 Problem Anxiety F41.9 Active 17861335 Problem Establishing care with new doctor, encounter for Z76.89 Active 983407578 Problem Allergic rhinitis, unspecified seasonality, unspecified trigger J30.9 Active 64794266 ALLERGIES No Information ENCOUNTERS Encounter Location Date Diagnosis [facility] [address] [place] [address] Apr, Schizoaffective disorder F25.9 ; Kidney stones N20.0 ; Gallstones K80.20 and BMI 40.0-44.9, adult Z68.41 [facility] [address] [place] [address] Apr, [facility] [id number] [place] [address] Mar, Gastroenteritis K52.9 and BMI 40.0-44.9, adult Z68.41 [facility] [address] [place] [address] Dec, Establishing care with new doctor, encounter for Z76.89 ; HTN (hypertension) I10 ; Schizoaffective disorder F25.9 ; Anxiety F41.9 ; Allergic rhinitis, unspecified seasonality, unspecified trigger J30.9 ; Impacted cerumen of both ears H61.23 and BMI 40.0-44.9, adult Z68.41 [place] [address] [address] Nov, [place] [address] [address] Oct, [place] [address] [address] Apr, [address] [address] Apr, Family history of borderline diabetes mellitus Z83.3 [place] [address] [address] Apr, Family history of borderline diabetes mellitus Z83.3 ; Establishing care with new doctor, encounter for Z76.89 ; Screening cholesterol level Z13.220 ; HTN (hypertension) I10 ; Schizoaffective disorder F25.9 and Anxiety F41.[address] [address] Apr, [place] [address] [address] Aug, Other viral agents as the cause of diseases classified elsewhere B97.89 and Acute upper respiratory infection, unspecified J06.9 [place] [id number] [place] [address] Jul, Encounter for immunization Z23 [address] [address] Apr, HTN (hypertension) I10 and Family history of borderline diabetes mellitus Z83.3 [place] [address] [address] Nov, [place] [address] [place] [address] 29 Oct, 2015 HTN (hypertension) I10 ; Family history of borderline diabetes mellitus Z83.3 ; Schizoaffective disorder F25.9 and Anxiety F41.9 [place] [id number] [place] [address] 11 Oct, 2015 [place] [address] [address] Sep, [place] [address] [address] Jul, Major depression, recurrent F33.9 [place] [address] [address] Jul, Encounter for immunization Z23 [place] [address] [address] 08 May, 2015 Vaginal pain 625.9 and UTI (urinary tract infection) 599.0 [place] [address] [address] Apr, Sinusitis 473.9 [place] [address] [address] Apr, [place] [address] [address] Apr, [place] [address] [address] Apr, Encounter for routine gynecological examination V72.31 [place] [address] [address] Feb, [place] [address] [address] 14 Dec, 2014 [place] [address] [address] 13 Dec, 2014 [place] [address] [address] Oct, [facility] [address] [id number] [address] Oct, [facility] [id number] [address] May, [facility] [id number] [address] May, [facility] [id number] [address] Sep, [facility] [id number] [address] Sep, [facility] [id number] [address] Jul, IMMUNIZATIONS No Known Immunizations SOCIAL HISTORY Never Assessed REASON FOR VISIT PLAN OF CARE VITAL SIGNS MEDICATIONS No Known Medications RESULTS No Results PROCEDURES No Known procedures INSTRUCTIONS MEDICATIONS ADMINISTERED No Known Medications MEDICAL (GENERAL) HISTORY Type Description Date Medical History schizoaffective disorder Medical History anxiety Medical History depression Medical History hypertension Surgical History tubal ligation Hospitalization History childbirth only Hospitalization History [facility] in [place] 09/2015
--- OUTSIDE RECORDS SUMMARY | 2019-03-16 19:20 | XMS REPORT ---
Author Author JAVON COLLAZO Organization [facility] Address [address] [place] [address] Care Team Providers Care Embedded Software Development Engineer Name Role Phone JAVON COLLAZO Unavailable PROBLEMS Type Condition ICD9-CM Code ATM11-XZ Code Onset Dates Condition Status SNOMED Code Problem Schizoaffective disorder F25.9 Active 32013641 Problem HTN (hypertension) I10 Active 19577300 Problem Family history of borderline diabetes mellitus Z83.3 Active 032063175 Problem Kidney stones N20.0 Active 09013909 Problem Gallstones K80.20 Active 267850089 Problem Impacted cerumen of both ears H61.23 Active 2531470685019355 Problem Anxiety F41.9 Active 10239785 Problem Establishing care with new doctor, encounter for Z76.89 Active 504314208 Problem Allergic rhinitis, unspecified seasonality, unspecified trigger J30.9 Active 28461550 ALLERGIES Substance Reaction Event Type Date Status Penicillamine Unknown Drug Allergy Mar, Active ENCOUNTERS Encounter Location Date Diagnosis [facility] [id number] [place] [address] Apr, Schizoaffective disorder F25.9 ; Kidney stones N20.0 ; Gallstones K80.20 and BMI 40.0-44.9, adult Z68.41 [facility] [address] [id number], [place] [address] Apr, [facility] [id number] [place] [address] Mar, Gastroenteritis K52.9 and BMI 40.0-44.9, adult Z68.41 [facility] [id number] [place] [address] Dec, Establishing care with new doctor, encounter for Z76.89 ; HTN (hypertension) I10 ; Schizoaffective disorder F25.9 ; Anxiety F41.9 ; Allergic rhinitis, unspecified seasonality, unspecified trigger J30.9 ; Impacted cerumen of both ears H61.23 and BMI 40.0-44.9, adult Z68.41 [place] [id number] [place] [address] Nov, [place] [address] [address] Oct, [place] [address] [address] Apr, [address] [address] Apr, Family history of borderline diabetes mellitus Z83.[address] [address] Apr, Family history of borderline diabetes mellitus Z83.3 ; Establishing care with new doctor, encounter for Z76.89 ; Screening cholesterol level Z13.220 ; HTN (hypertension) I10 ; Schizoaffective disorder F25.9 and Anxiety F41.9 [place] [id number] [place] [address] Apr, [place] [id number] [place] [address] Aug, Other viral agents as the cause of diseases classified elsewhere B97.89 and Acute upper respiratory infection, unspecified J06.9 [place] [id number] [place] [address] Jul, Encounter for immunization Z23 [address] [address] Apr, HTN (hypertension) I10 and Family history of borderline diabetes mellitus Z83.3 [place] [id number] [place] [address] Nov, [facility] [address] [place] [address] 29 Oct, 2015 HTN (hypertension) I10 ; Family history of borderline diabetes mellitus Z83.3 ; Schizoaffective disorder F25.9 and Anxiety F41.9 [facility] [id number] [place] [address] 11 Oct, 2015 [facility] [address] [address] Sep, [facility] [id number] [place] [address] Jul, Major depression, recurrent F33.9 [place] [address] [address] Jul, Encounter for immunization Z23 [place] [address] [address] 08 May, 2015 Vaginal pain 625.9 and UTI (urinary tract infection) 599.0 [place] [id number] [place] [address] Apr, Sinusitis 473.9 [place] [id number] [place] [address] Apr, [place] [id number] [place] [address] Apr, [place] [id number] [place] [address] Apr, Encounter for routine gynecological examination V72.31 [place] [id number] [place] [address] Feb, [place] [id number] [place] [address] 14 Dec, 2014 [facility] [id number] [place] [address] Dec, [place] [id number] [address] Oct, [facility] [id number], [place] [address] Oct, [facility] [id number], [place] [address] May, [facility] [address], [place] [address] May, [facility] [address] [place] [address] Sep, [facility] [address] [place] [address] Sep, [facility] [id number], [place] [address] Jul, IMMUNIZATIONS No Known Immunizations SOCIAL HISTORY Never Assessed REASON FOR VISIT Vomiting, PT reports as of yesterday she has been puking along with constipation . PT notes some urination, and is unable to hold food down along with bloating/d quang Díaz MA PLAN OF CARE Activity Details Follow Up Routine appt Reason: VITAL SIGNS Height 63 in 2018-03-20 Weight 231.5 lbs 2018-03-20 Temperature 98.1 degrees Fahrenheit 2018-03-20 Heart Rate 89 bpm 2018-03-20 Respiratory Rate 20 2018-03-20 Oximetry on room air:96 % 2018-03-20 BMI 41.00 kg/m2 2018-03-20 Blood pressure systolic 128 mmHg 2018-03-20 Blood pressure diastolic 80 mmHg 2018-03-20 MEDICATIONS Medication Instructions Dosage Frequency Start Date End Date Duration Status QUEtiapine Fumarate ER 200 MG Orally Once a day 1 tablet in the evening 24h Active Abilify 15 mg by intramuscular route May, Active Lisinopril 10 mg Orally Once a day 1 tablet 24h 90 Active Prozac 20 MG Orally Once a day 1 capsule in the morning 24h Active RESULTS Name Result Date Reference Range UA LONG DIP (IN HOUSE) Lot # [id number] Exp date 12/2018 Clarity slightly cloudy Color Yellow Odor Foul GLU Negative CLAUDIA Negative KET Negative SG 1.025 BLO 1+ pH 5.5 Protein 2+ URO 0.2 NIT Negative ROLF Negative Lot # Exp date PROCEDURES Procedure Date Ordered Result Body Site URINALYSIS, AUTO, W/O SCOPE March 20, 2018 INSTRUCTIONS MEDICATIONS ADMINISTERED No Known Medications MEDICAL (GENERAL) HISTORY Type Description Date Medical History schizoaffective disorder Medical History anxiety Medical History depression Medical History hypertension Surgical History tubal ligation Hospitalization History childbirth only Hospitalization History [facility] in [place] 09/2015
--- OUTSIDE RECORDS SUMMARY | 2019-03-16 19:20 | XMS REPORT ---
Author Author WARREN NORTON Organization [facility] Address [address] [place] [address] Care Team Providers Care Auricular Detoxification Specialist Name Role Phone WARREN NORTON Unavailable PROBLEMS Type Condition ICD9-CM Code [id number] Code Onset Dates Condition Status SNOMED Code Problem Schizoaffective disorder F25.9 Active 08250411 Problem HTN (hypertension) I10 Active 09333205 Problem Family history of borderline diabetes mellitus Z83.3 Active 261477625 Problem Kidney stones N20.0 Active 57958858 Problem Gallstones K80.20 Active 969059925 Problem Impacted cerumen of both ears H61.23 Active 6512110318906705 Problem Anxiety F41.9 Active 99272543 Problem Establishing care with new doctor, encounter for Z76.89 Active 137846625 Problem Allergic rhinitis, unspecified seasonality, unspecified trigger J30.9 Active 24409426 ALLERGIES Substance Reaction Event Type Date Status Penicillamine Unknown Drug Allergy Apr, Active ENCOUNTERS Encounter Location Date Diagnosis [facility] [id number] [place] [address] Apr, Schizoaffective disorder F25.9 ; Kidney stones N20.0 ; Gallstones K80.20 and BMI 40.0-44.9, adult Z68.41 [facility] [id number] [address] Apr, [facility] [address] [place] [address] Mar, Gastroenteritis K52.9 and BMI 40.0-44.9, adult Z68.41 [facility] [id number] [place] [address] Dec, Establishing care with new doctor, encounter for Z76.89 ; HTN (hypertension) I10 ; Schizoaffective disorder F25.9 ; Anxiety F41.9 ; Allergic rhinitis, unspecified seasonality, unspecified trigger J30.9 ; Impacted cerumen of both ears H61.23 and BMI 40.0-44.9, adult Z68.41 [place] [id number] [place] [address] Nov, [place] [address] [address] Oct, [place] [address] [address] Apr, [address] [address] Apr, Family history of borderline diabetes mellitus Z83.[address] [address] Apr, Family history of borderline diabetes mellitus Z83.3 ; Establishing care with new doctor, encounter for Z76.89 ; Screening cholesterol level Z13.220 ; HTN (hypertension) I10 ; Schizoaffective disorder F25.9 and Anxiety F41.9 [place] [id number] [place] [address] Apr, [place] [id number] [place] [address] Aug, Other viral agents as the cause of diseases classified elsewhere B97.89 and Acute upper respiratory infection, unspecified J06.9 [place] [id number] [place] [address] Jul, Encounter for immunization Z23 [address] [address] Apr, HTN (hypertension) I10 and Family history of borderline diabetes mellitus Z83.3 [place] [id number] [place] [address] Nov, [place] [id number] [place] [address] 29 Oct, 2015 HTN (hypertension) I10 ; Family history of borderline diabetes mellitus Z83.3 ; Schizoaffective disorder F25.9 and Anxiety F41.9 [facility] [id number] [place] [address] 11 Oct, 2015 [facility] [address] [address] Sep, [place] [id number] [place] [address] Jul, Major depression, recurrent F33.9 [place] [address] [address] Jul, Encounter for immunization Z23 [place] [id number] [place] [address] 08 May, 2015 Vaginal pain 625.9 and UTI (urinary tract infection) 599.0 [place] [id number] [place] [address] Apr, Sinusitis 473.9 [place] [id number] [place] [address] Apr, [place] [id number] [place] [address] Apr, [place] [id number] [place] [address] Apr, Encounter for routine gynecological examination V72.31 [place] [id number] [place] [address] Feb, [place] [id number] [place] [address] 14 Dec, 2014 [facility] [id number] [place] [address] Dec, [place] [address] [address] Oct, [facility] [address] [facility] [id number] [address] Oct, [facility] [id number] [address] May, [facility] [id number] [address] May, [facility] [id number] [address] Sep, [facility] [id number] [address] Sep, [facility] [id number] [address] Jul, IMMUNIZATIONS No Known Immunizations SOCIAL HISTORY Never Assessed REASON FOR VISIT er visit; painful urination, kidney stones, possibly needs galbladder surgery - ALESSANDRO Alegria PLAN OF CARE Activity Details Follow Up after referral visits with PCP Reason: VITAL SIGNS Height 63 in 2018-04-17 Weight 233.6 lbs 2018-04-17 Temperature 98.1 degrees Fahrenheit 2018-04-17 Heart Rate 100 bpm 2018-04-17 Respiratory Rate 28 2018-04-17 Oximetry on room air:98 % 2018-04-17 BMI 41.38 kg/m2 2018-04-17 Blood pressure systolic 120 mmHg 2018-04-17 Blood pressure diastolic 90 mmHg 2018-04-17 MEDICATIONS Medication Instructions Dosage Frequency Start Date End Date Duration Status Abilify 15 mg by intramuscular route May, Active QUEtiapine Fumarate ER 200 MG Orally Once a day 1 tablet in the evening 24h Active Lisinopril 10 mg Orally Once a day 1 tablet 24h 90 Active Prozac 20 MG Orally Once a day 1 capsule in the morning 24h Active RESULTS No Results PROCEDURES No Known procedures INSTRUCTIONS MEDICATIONS ADMINISTERED No Known Medications MEDICAL (GENERAL) HISTORY Type Description Date Medical History schizoaffective disorder Medical History anxiety Medical History depression Medical History hypertension Surgical History tubal ligation Hospitalization History childbirth only Hospitalization History [facility] 09/2015
--- OUTSIDE RECORDS SUMMARY | 2019-03-16 19:20 | XMS REPORT ---
Author Author JAVON COLLAZO Organization [facility] Address [address] [place] [address] Care Team Providers Care Film Spooler Name Role Phone JAVON COLLAZO Unavailable PROBLEMS Type Condition ICD9-CM Code OEO97-OT Code Onset Dates Condition Status SNOMED Code Problem Family history of borderline diabetes mellitus Z83.3 Active 420529682 Problem Anxiety F41.9 Active 26463196 Problem HTN (hypertension) I10 Active 27691076 Problem Schizoaffective disorder F25.9 Active 14999582 Problem Elevated prolactin level E22.9 Active 231240802 Problem Gallstones K80.20 Active 396223358 Problem Establishing care with new doctor, encounter for Z76.89 Active 208184184 Problem Allergic rhinitis, unspecified seasonality, unspecified trigger J30.9 Active 55348006 Problem Kidney stones N20.0 Active 40061954 Problem Impacted cerumen of both ears H61.23 Active [id number] ALLERGIES Substance Reaction Event Type Date Status Penicillamine Unknown Drug Allergy Jul, Active ENCOUNTERS Encounter Location Date Diagnosis [facility] [address] [place] [address] Jul, Elevated prolactin level E22.9 [facility] [id number] [place] [address] Apr, Schizoaffective disorder F25.9 ; Kidney stones N20.0 ; Gallstones K80.20 and BMI 40.0-44.9, adult Z68.41 [facility] [id number] [place] [address] Apr, [facility] [id number] [place] [address] Mar, Gastroenteritis K52.9 and BMI 40.0-44.9, adult Z68.41 [place] [id number] [place] [address] Dec, Establishing care with new doctor, encounter for Z76.89 ; HTN (hypertension) I10 ; Schizoaffective disorder F25.9 ; Anxiety F41.9 ; Allergic rhinitis, unspecified seasonality, unspecified trigger J30.9 ; Impacted cerumen of both ears H61.23 and BMI 40.0-44.9, adult Z68.41 [place] [id number] [place] [address] Nov, [address] [address] Oct, [address] [address] Apr, [address] [address] Apr, Family history of borderline diabetes mellitus Z83.3 [place] [id number] [place] [address] Apr, Family history of borderline diabetes mellitus Z83.3 ; Establishing care with new doctor, encounter for Z76.89 ; Screening cholesterol level Z13.220 ; HTN (hypertension) I10 ; Schizoaffective disorder F25.9 and Anxiety F41.9 [place] [id number] [place] [address] Apr, [place] [id number] [place] [address] Aug, Other viral agents as the cause of diseases classified elsewhere B97.89 and Acute upper respiratory infection, unspecified J06.9 [place] [id number] [place] [address] Jul, Encounter for immunization Z23 [address] [address] Apr, HTN (hypertension) I10 and Family history of borderline diabetes mellitus Z83.3 [place] [id number] [place] [address] Nov, [place] [address] [address] Oct, HTN (hypertension) I10 ; Family history of borderline diabetes mellitus Z83.3 ; Schizoaffective disorder F25.9 and Anxiety F41.9 [place] [id number] [place] [address] Oct, [place] [address] [address] Sep, [place] [address] [address] Jul, Major depression, recurrent F33.9 [place] [address] [address] Jul, Encounter for immunization Z23 [place] [address] [address] May, Vaginal pain 625.9 and UTI (urinary tract infection) 599.0 [place] [id number] [place] [address] Apr, Sinusitis 473.9 [place] [address] [address] Apr, [place] [id number] [place] [address] Apr, [place] [address] [address] Apr, Encounter for routine gynecological examination V72.31 [place] [id number] [place] [address] Feb, [place] [address] [address] Dec, [facility] [id number] [address] Dec, [facility] [id number] [address] Oct, [facility] [id number] [address] Oct, [facility] [address] [address] May, [facility] [id number], [place] [address] May, [facility] [address] [place] [address] Sep, [facility] [address] [place] [address] Sep, [facility] [id number], [place] [address] Jul, IMMUNIZATIONS No Known Immunizations SOCIAL HISTORY Never Assessed REASON FOR VISIT Pt states that she had some labs that were low and mag lab suggested her to see [facility] Activity Details Follow Up Discuss after report Reason: VITAL SIGNS Height 63 in 2018-07-21 Weight 234.9 lbs 2018-07-21 Temperature 97.8 degrees Fahrenheit 2018-07-21 Heart Rate 102 bpm 2018-07-21 Respiratory Rate 22 2018-07-21 BMI 41.61 kg/m2 2018-07-21 Blood pressure systolic 124 mmHg 2018-07-21 Blood pressure diastolic 86 mmHg 2018-07-21 MEDICATIONS Medication Instructions Dosage Frequency Start Date End Date Duration Status QUEtiapine Fumarate ER 200 MG Orally Once a day 1 tablet in the evening 24h Active Prozac 20 MG Orally Once a day 1 capsule in the morning 24h Active Abilify 15 mg by intramuscular route May, Active Lisinopril 10 MG TAKE ONE (1) TABLET BY MOUTH DAILY 90 Active RESULTS No Results PROCEDURES No Known procedures INSTRUCTIONS MEDICATIONS ADMINISTERED No Known Medications MEDICAL (GENERAL) HISTORY Type Description Date Medical History schizoaffective disorder Medical History anxiety Medical History depression Medical History hypertension Surgical History tubal ligation Surgical History gallbladder removal 04/2018 Hospitalization History childbirth only Hospitalization History [facility] 09/2015
--- OUTSIDE RECORDS SUMMARY | 2019-03-16 19:21 | XMS REPORT | Continuity of Care Document ---
Author Organization Unknown Address Unknown Allergies Active Description Code Type Severity Reaction Onset Reported/Identified Relationship to Patient Clinical Status Yes Penicillins [id number] Drug Allergy Unknown N/A 05/17/2008 Yes Penicillins Drug Allergy N/A N/A 06/04/2014 Yes Penicillins [id number] Drug Allergy Unknown Pt has received 04/25/2018 Medications There is no data. Problems Date Dx Coded Attending Type Code Diagnosis Diagnosed By 05/11/2011 Ot 789.03 05/11/2011 Ot 789.04 07/11/2012 Ot 295.90 07/11/2012 Ot V62.84 07/11/2012 Ot V62.85 01/10/2013 YULIANA JEFFRIES DO Ot 473.9 01/10/2013 YULIANA JEFFRIES DO Ot 729.1 02/27/2013 CONRADO MAYA Ot 784.0 09/17/2013 KEENAN REESE DO V04.81 FLU SHOT 09/17/2013 ALBAN WOODARD APRN [...] R45.851 10/01/2015 Ot T43.8X2A 10/01/2015 Ot Y92.009 04/06/2018 Ot F17.200 NICOTINE DEPENDENCE, UNSPECIFIED, UNCOMP 04/06/2018 Ot F20.9 SCHIZOPHRENIA, UNSPECIFIED 04/06/2018 Ot F32.9 MAJOR DEPRESSIVE DISORDER, SINGLE EPISOD 04/06/2018 Ot I10 ESSENTIAL (PRIMARY) HYPERTENSION 04/06/2018 Ot K80.20 CALCULUS OF GALLBLADDER W/O CHOLECYSTITI 04/06/2018 Ot N20.1 CALCULUS OF URETER 04/06/2018 Ot N39.0 URINARY TRACT INFECTION, SITE NOT SPECIF 04/06/2018 Ot R31.9 HEMATURIA, UNSPECIFIED 04/06/2018 Ot Z88.0 ALLERGY STATUS TO PENICILLIN 04/06/2018 Ot Z91.5 PERSONAL HISTORY OF SELF-HARM 04/06/2018 Ot Z98.51 TUBAL LIGATION STATUS 04/25/2018 Ot F20.9 SCHIZOPHRENIA, UNSPECIFIED 04/25/2018 Ot F32.9 MAJOR DEPRESSIVE DISORDER, SINGLE EPISOD 04/25/2018 Ot F41.9 ANXIETY DISORDER, UNSPECIFIED 04/25/2018 Ot I10 ESSENTIAL (PRIMARY) HYPERTENSION 04/25/2018 Ot K21.9 GASTRO-ESOPHAGEAL REFLUX DISEASE WITHOUT 04/25/2018 Ot K80.20 CALCULUS OF GALLBLADDER W/O CHOLECYSTITI 04/25/2018 Ot N20.0 CALCULUS OF KIDNEY 04/25/2018 Ot N20.1 CALCULUS OF URETER 04/25/2018 Ot Z11.2 ENCOUNTER FOR SCREENING FOR OTHER BACTER 04/25/2018 Ot Z79.899 OTHER SKILLED NURSING (CURRENT) DRUG THERAPY 04/25/2018 BRIANNA ERAZO DO Ot Z01.818 ENCOUNTER FOR OTHER PREPROCEDURAL EXAMIN 04/27/2018 BRIANNA ERAZO DO Ot E66.01 MORBID (SEVERE) OBESITY DUE TO EXCESS CA 04/27/2018 BRIANNA ERAZO DO Ot F17.210 NICOTINE DEPENDENCE, CIGARETTES, UNCOMPL 04/27/2018 BRIANNA ERAZO DO Ot I10 ESSENTIAL (PRIMARY) HYPERTENSION 04/27/2018 BRIANNA ERAZO DO Ot K80.10 CALCULUS OF GALLBLADDER W CHRONIC CHOLEC 04/27/2018 BRIANNA ERAZO DO Ot Z68.41 BODY MASS INDEX (BMI) 40.0-44.9, ADULT 05/01/2018 BRIANNA ERAZO DO Ot Z01.818 ENCOUNTER FOR OTHER PREPROCEDURAL EXAMIN 05/02/2018 JIGNESH GERMAN, DARYL Slater Ot N20.0 CALCULUS OF KIDNEY 05/02/2018 DARYL EGAN MD Ot N28.89 OTHER SPECIFIED DISORDERS OF KIDNEY AND 05/02/2018 BRIANNA ERAZO DO Ot E66.01 MORBID (SEVERE) OBESITY DUE TO EXCESS CA 05/02/2018 BRIANNA ERAZO DO Ot F17.210 NICOTINE DEPENDENCE, CIGARETTES, UNCOMPL 05/02/2018 BRIANNA ERAZO DO Ot I10 ESSENTIAL (PRIMARY) HYPERTENSION 05/02/2018 BRIANNA ERAZO DO Ot K80.10 CALCULUS OF GALLBLADDER W CHRONIC CHOLEC 05/02/2018 BRIANNA ERAZO DO Ot Z68.41 BODY MASS INDEX (BMI) 40.0-44.9, ADULT 05/03/2018 Ot K80.20 CALCULUS OF GALLBLADDER W/O CHOLECYSTITI 05/03/2018 Ot M46.06 SPINAL ENTHESOPATHY, LUMBAR REGION 05/03/2018 Ot M46.86 OTHER SPECIFIED INFLAMMATORY SPONDYLOPAT 05/03/2018 Ot M76.891 OTH ENTHESOPATHIES OF RIGHT LOWER LIMB, 05/03/2018 Ot M76.892 OTH ENTHESOPATHIES OF LEFT LOWER LIMB, E 05/03/2018 Ot N20.2 CALCULUS OF KIDNEY WITH CALCULUS OF URET 05/17/2018 JIGNESH GERMAN, DARYL Slater Ot N20.0 CALCULUS OF KIDNEY 05/17/2018 DARYL EGAN MD Ot N28.89 OTHER SPECIFIED DISORDERS OF KIDNEY AND 02/25/2019 YARELI WANG Ot F20.9 SCHIZOPHRENIA, UNSPECIFIED 02/25/2019 FELIPE, YARELI MAIL CARRIER Ot F32.9 MAJOR DEPRESSIVE DISORDER, SINGLE EPISOD 02/25/2019 FELIPE, YARELI MAIL CARRIER Ot F41.9 ANXIETY DISORDER, UNSPECIFIED 02/25/2019 FELIPE, YARELI MAIL CARRIER Ot I10 ESSENTIAL (PRIMARY) HYPERTENSION 02/25/2019 FELIPE, YARELI MAIL CARRIER Ot J02.9 ACUTE PHARYNGITIS, UNSPECIFIED 02/25/2019 FELIPE, YARELI MAIL CARRIER Ot Z88.0 ALLERGY STATUS TO PENICILLIN 02/25/2019 FELIPE, YARELI MAIL CARRIER Ot Z98.51 TUBAL LIGATION STATUS 02/27/2019 FELIPE, YARELI MAIL CARRIER Ot F20.9 SCHIZOPHRENIA, UNSPECIFIED 02/27/2019 FELIPE, YARELI MAIL CARRIER Ot F32.9 MAJOR DEPRESSIVE DISORDER, SINGLE EPISOD 02/27/2019 FELIPE, YARELI MAIL CARRIER Ot F41.9 ANXIETY DISORDER, UNSPECIFIED 02/27/2019 FELIPE, YARELI MAIL CARRIER Ot I10 ESSENTIAL (PRIMARY) HYPERTENSION 02/27/2019 FELIPE, YARELI MAIL CARRIER Ot J02.9 ACUTE PHARYNGITIS, UNSPECIFIED 02/27/2019 FELIPE, YARELI MAIL CARRIER Ot Z88.0 ALLERGY STATUS TO PENICILLIN 02/27/2019 FELIPE, YARELI MAIL CARRIER Ot Z98.51 TUBAL LIGATION STATUS Procedures Code Description [place] [address] ROUTINE VENIPUNCTURE 06/04/2014 67823 CBC 06/04/2014 7945096 GFR CALC (RESULT ONLY) 06/04/2014 89861 CMP 06/04/2014 56739 LIPID PANEL 06/04/2014 84861 TSH 06/04/2014 Results Test Result Range Complete blood count (CBC) with automated white [...] Automated erythrocyte mean corpuscular hemoglobin concentration measurement (mass/volume) 31 g/dL 32-36 Automated erythrocyte distribution width ratio 16.8 % 10.0- 14.5 Automated blood platelet count (count/volume) 511 10*3/uL [...] Blood monocytes automated count (number/volume) 0.9 10*3 0.0- 1.0 Automated eosinophil count 0.2 10*3/uL 0.0-0.3 Automated [...] NRG Blood erythrocyte morphology finding identification NORMAL NRG Comprehensive metabolic panel - 04/05/18 21:15 Serum [...] Serum or plasma aspartate aminotransferase measurement (enzymatic activity/volume) 17 U/L 5-34 Serum or plasma alanine aminotransferase measurement (enzymatic activity/volume) 21 U/L 0-55 Serum or plasma protein measurement (mass/volume) 7.8 g/dL 6.4-8.2 Serum or plasma albumin measurement (mass/volume) 4.1 g/dL 3.2-4.5 Serum or plasma amylase measurement (enzymatic activity/volume) - 04/05/18 21:15 Serum or plasma amylase measurement (enzymatic activity/volume) 43 U/L 25-125 Lipase - 04/05/18 21:15 Lipase 27 U/L 8-78 Complete urinalysis with reflex to culture - 04/05/18 21:19 Urine color determination OTHER NRG Urine clarity determination VERY CLOUDY NRG Urine pH measurement by test strip 7 5-9 Specific gravity of urine by test strip 1.010 1.016-1.022 Urine protein assay by test strip, semi-quantitative [...] sediment leukocyte count by microscopy (number/high power field) [HPF] NRG Bacteria detection in urine sediment [...] Blood lactic acid measurement (moles/volume) 1.41 mmol/L 0.50- 2.00 Bacterial blood culture - 04/05/18 21:27 Bacterial blood culture NG NRG Bacterial blood culture - 04/05/18 22:00 QUANTITY OF GROWTH . NRG Bacterial blood culture SEE COMMEN NRG Methicillin resistant Staphylococcus aureus (MRSA) screening culture - 04/27/18 07:45 Methicillin resistant Staphylococcus aureus (MRSA) screening culture NEG NRG Streptococcus pyogenes antigen detection - 02/25/19 17:39 Streptococcus pyogenes antigen detection NEGATIVE NEGATIVE Bacterial throat culture - 02/25/19 17:39 Bacterial throat culture NBS NRG Serum heterophile antibody titer - 02/25/19 17:56 Serum heterophile antibody titer NEGATIVE NEGATIVE GC/CHLAMYDIA (SWAB OR URINE)-RAPID - 03/06/19 18:14 CHLAMYDIA TRACHOMATIS RNA, TMA NOT DETECTED NOT DETECTED NEISSERIA GONORRHOEAE RNA, TMA NOT DETECTED NOT DETECTED COMMENT NRG Complete urinalysis with reflex to culture - 03/16/19 12:10 Urine color determination YELLOW NRG Urine clarity determination CLEAR NRG Urine pH measurement by test strip 7 5-9 Specific gravity of urine by test strip 1.005 1.016-1.022 Urine protein assay by test strip, semi-quantitative 2+ NEGATIVE Urine glucose detection by automated test strip NEGATIVE NEGATIVE Erythrocytes detection in urine sediment by light microscopy 5+ NEGATIVE Urine ketones detection by automated test strip NEGATIVE NEGATIVE Urine nitrite detection by test strip NEGATIVE NEGATIVE Urine total bilirubin detection by test strip NEGATIVE NEGATIVE Urine urobilinogen measurement by automated test strip (mass/volume) NORMAL NORMAL Urine leukocyte esterase detection by dipstick 2+ NEGATIVE Automated urine sediment erythrocyte count by microscopy (number/high power field) [HPF] NRG Automated urine sediment leukocyte count by microscopy (number/high power field) [HPF] NRG Bacteria detection in urine sediment by light microscopy MODERATE NRG Squamous epithelial cells detection in urine sediment by light microscopy 5-10 NRG Crystals detection in urine sediment by light microscopy NONE NRG Casts detection in urine sediment by light microscopy NONE NRG Mucus detection in urine sediment by light microscopy NEGATIVE NRG Complete urinalysis with reflex to culture YES NRG Complete blood count (CBC) with automated white blood cell (WBC) differential - 03/16/19 12:18 Blood leukocytes automated count (number/volume) 13.6 10*3/uL 4.3-11.0 Blood erythrocytes automated count (number/volume) 4.07 10*6/uL 4.35-5.85 Venous blood hemoglobin measurement (mass/volume) 9.1 g/dL 11.5-16.0 Blood hematocrit (volume fraction) 31 % 35-52 Automated erythrocyte mean corpuscular volume 76 [foz_us] 80-99 Automated erythrocyte mean corpuscular hemoglobin (mass per erythrocyte) 22 pg 25-34 Automated erythrocyte mean corpuscular hemoglobin concentration measurement (mass/volume) 29 g/dL 32-36 Automated erythrocyte distribution width ratio 20.4 % 10.0- 14.5 Automated blood platelet count (count/volume) 425 10*3/uL 130-400 Automated blood platelet mean volume measurement 8.6 [foz_us] 7.4-10.4 Automated blood neutrophils/100 leukocytes 80 % 42-75 Automated blood lymphocytes/100 leukocytes 14 % 12-44 Blood monocytes/100 leukocytes 5 % 0-12 Automated blood eosinophils/100 leukocytes 1 % 0-10 Automated blood basophils/100 leukocytes 0 % 0-10 Blood neutrophils automated count (number/volume) 10.8 10*3 1.8-7.8 Blood lymphocytes automated count (number/volume) 1.9 10*3 1.0-4.0 Blood monocytes automated count (number/volume) 0.7 10*3 0.0- 1.0 Automated eosinophil count 0.2 10*3/uL 0.0-0.3 Automated blood basophil count (count/volume) 0.0 10*3/uL 0.0-0.1 Comprehensive metabolic panel - 03/16/19 12:18 Serum or plasma sodium measurement (moles/volume) 141 mmol/L 135-145 Serum or plasma potassium measurement (moles/volume) 3.9 mmol/L 3.6-5.0 Serum or plasma chloride measurement (moles/volume) 107 mmol/L 98-107 Carbon dioxide 22 mmol/L 21-32 Serum or plasma anion gap determination (moles/volume) 12 mmol/L 5-14 Serum or plasma urea nitrogen measurement (mass/volume) 14 mg/dL 7-18 Serum or plasma creatinine measurement (mass/volume) 1.25 mg/dL 0.60-1.30 Serum or plasma urea nitrogen/creatinine mass ratio 11 NRG Serum or plasma creatinine measurement with calculation of estimated glomerular filtration rate 56 NRG Serum or plasma glucose measurement (mass/volume) 80 mg/dL 70-105 Serum or plasma calcium measurement (mass/volume) 9.2 mg/dL 8.5-10.1 Serum or plasma total bilirubin measurement (mass/volume) 0.4 mg/dL 0.1-1.0 Serum or plasma alkaline phosphatase measurement (enzymatic activity/volume) 132 U/L 40-136 Serum or plasma aspartate aminotransferase measurement (enzymatic activity/volume) 16 U/L 5-34 Serum or plasma alanine aminotransferase measurement (enzymatic activity/volume) 28 U/L 0-55 Serum or plasma protein measurement (mass/volume) 7.7 g/dL 6.4-8.2 Serum or plasma albumin measurement (mass/volume) 4.0 g/dL 3.2-4.5 CALCIUM CORRECTED 9.2 mg/dL 8.5-10.1 Encounters ACCT No. Visit Date/Time Discharge Status Pt. Type Provider Facility Loc./Unit Complaint [id number] 06/04/2014 07:54:00 06/04/2014 23:59:59 CLS Outpatient ALBAN WOODARD APRN [id number] 09/17/2013 14:45:00 09/17/2013 23:59:59 CLS Outpatient KEENAN REESE DO [id number] 03/16/2019 11:36:00 03/16/2019 13:57:00 DIS Emergency HANNAH SOSA APRN [facility] ER LOWER BACK PAIN [id number] 02/25/2019 17:20:00 02/25/2019 18:36:00 DIS Emergency YARELI WANG [facility] ER SORE THROAT [id number] 05/01/2018 15:52:00 05/01/2018 23:59:59 CLS Outpatient DARYL EGAN MD [facility] RAD RENAL STONE [id number] 04/27/2018 07:34:00 04/27/2018 14:15:00 DIS Outpatient BRIANNA ERAZO DO B [facility] SDC CALCULI [id number] 04/25/2018 05:55:00 04/25/2018 14:35:00 DIS Outpatient CASTRO FARIAS BRIANNA B [facility] PREOP CALCULI [id number] 05/07/2015 12:39:00 05/07/2015 15:49:00 DIS Emergency CONRADO MAYA [facility] ER [id number] 04/13/2015 22:42:00 04/14/2015 01:25:00 DIS Emergency PILY CLAIRE MD [facility] ER [id number] 12/30/2014 22:10:00 12/31/2014 11:30:00 DIS Inpatient JAVON COLLAZO MD [facility] ICU [id number] 02/27/2013 21:28:00 02/27/2013 22:40:00 DIS Emergency CONRADO MAYA [facility] ER [id number] 01/10/2013 18:57:00 01/10/2013 20:19:00 DIS Emergency YULIANA JEFFRIES DO [facility] ER [id number] 04/25/2018 14:31:00 Document Registration [id number] 04/25/2018 14:31:00 Document Registration [id number] 04/19/2018 08:53:00 Document Registration [id number] 04/18/2018 10:49:00 Document Registration [id number] 04/05/2018 21:26:00 Document Registration [id number] 10/01/2015 20:15:00 Document Registration [id number] 07/11/2012 16:52:00 Document Registration [id number] 05/11/2011 15:49:00 Document Registration [id number] 03/06/2019 15:00:00 03/06/2019 23:59:59 [facility] Outpatient ALISSA HEAD [facility] [id number] 03/06/2019 15:00:00 Document Registration
[2019-03-21] MEDS ORDERED: TAMS0.4C98 PO (10:54)
[2019-03-21] MEDS ORDERED: NITR-65 PO (10:54)
== END 2019-03-16 13:57 | disposition home or self-care (01) ==
LOC: EDUNIT# 11:35 → ER 11:36
DX: N13.2 Hydronephrosis with renal and ureteral calculous obstruction (principal); I10 Essential (primary) hypertension; F20.9 Schizophrenia, unspecified; F32.9 Major depressive disorder, single episode, unspecified; F41.9 Anxiety disorder, unspecified; Z87.442 Personal history of urinary calculi; Z88.0 Allergy status to penicillin; Z98.51 Tubal ligation status
CPT/HCPCS: 36415; 74018; 74176; 80053; 81000; 84703; 85025; 87088; 96374; 96375

== ENCOUNTER → 2019-03-19 | Outpatient (CLI) | payer MEDICAID ==
[~2019-03-19] MED LIST changes: +CEFU500T63 PO; +ONDA8TAB13 PO; +OXYC1TAB87 PO
--- NOTE | 2019-03-19 15:54 | Diagnostic Imaging Report ---
INDICATION: Right flank pain EXAM: KUB at 2:55 PM FINDINGS: Gallbladder appears to be surgically absent. Bowel gas pattern is normal. There are phleboliths in the pelvis. A 4 mm distal right ureteral calculus is again seen and unchanged compared to 03/16/2018. IMPRESSION: Right ureterolithiasis. Dictated by: Dictated on workstation # [id number]
== END ==
LOC: RAD 14:41
PROVIDERS: ATTEND Urology
DX: N20.1 Calculus of ureter (principal)
CPT/HCPCS: 74018

== ENCOUNTER 2019-03-20 09:51 | Outpatient (CLI) | payer MEDICAID ==
[~2019-03-20] VITALS: Ht 154.9 cm; Wt 102.1 kg
[2019-03-21] MEDS ORDERED: TAMS0.4C98 PO (10:54)
[2019-03-21] MEDS ORDERED: NITR-65 PO (10:54)
== END 2019-03-20 14:21 | disposition home or self-care (01) ==
LOC: PREOP 09:51
PROVIDERS: ATTEND Urology
DX: Z01.818 Encounter for other preprocedural examination (principal)

== ENCOUNTER → 2020-05-29 | Outpatient (CLI) | payer MEDICAID ==
[~2020-05-29] MED LIST changes: +ACHYD1T PO; +FLUO20CA46 PO; -HYDR-3820 PO; +QUET200T29 PO; -QUET200T57 PO; -TAMS0.4C98 PO; +TMSL.4C PO
--- NOTE | 2020-05-29 17:18 | Diagnostic Imaging Report ---
EXAM: Digital mammogram, bilateral screening. COMPARISON: This is the patient's baseline study. There are no current complaints. The fibroglandular tissue in both breasts is heterogeneously dense. This does limit the sensitivity of this exam. In the 2 o'clock position of the left breast, approximately 8 cm from the nipple, there is a fairly well-circumscribed 9 mm oval asymmetry. I suspect that this is a benign process. Even so, as there are no prior studies available for comparison I would recommend a compression view of this area be obtained in the CC and MLO projections for further study. A true lateral view should also be obtained as well as ultrasound. The right breast is unremarkable. IMPRESSION: Additional mammographic views and ultrasound of the left breast would be recommended for further study. ACR category 3: Additional imaging required. Dictated by: Dictated on workstation # [id number]
== END ==
LOC: RAD 10:15
PROVIDERS: ATTEND Nurse Practitioner
DX: Z12.31 Encounter for screening mammogram for malignant neoplasm of breast (principal)
CPT/HCPCS: 77063; 77067

== ENCOUNTER → 2020-06-30 | Outpatient (CLI) | payer MEDICAID ==
--- NOTE | 2020-06-30 14:24 | Diagnostic Imaging Report ---
INDICATION: Left breast density. Patient presents for additional views. Correlation is made with recent screening study from 05/29/2020. Unilateral left 2-D and 3-D diagnostic mammography was performed including spot compression CC and ML views as well as conventional 90 degree lateral view.. Additional views show persistent circumscribed nodular density in the upper outer left breast approximately 7 cm from the nipple. No suspicious microcalcifications are seen. IMPRESSION: BI-RADS 0 Persistent circumscribed density upper outer left breast approximately 7 cm from the nipple. Further evaluation of this area with ultrasound is recommended and will be performed today. ACR BI-RADS Category 0: Incomplete. (Needs additional imaging evaluation). Result letter will be mailed to the patient. Note: At least 10% of breast cancer is not imaged by mammography. Dictated by: Dictated on workstation # [id number]
--- NOTE | 2020-06-30 15:00 | Diagnostic Imaging Report ---
INDICATION: Left breast nodule. The study is performed for further evaluation. CORRELATION is made with diagnostic mammogram earlier today as well as screening mammogram from 05/29/2020. Sonographic interrogation upper-outer left breast was performed. There is a circumscribed hypoechoic solid appearing nodule at the 12:30 location of the left breast, 6 cm from the nipple. This measures 10 mm x 6 mm x 8 mm. This likely accounts for the mammographic density. No internal vascularity is seen. No posterior acoustic shadowing is present. There may be minimal enhancement. Features are suggestive of a fibroadenoma. No other masses are identified. IMPRESSION: BI-RADS Category 3 Circumscribed hypoechoic solid appearing nodule at the 12:30 location of the left breast, 6 cm from the nipple. This likely accounts for the mammographic density. This has fairly benign features and most likely represents a fibroadenoma. Even so, a six-month follow-up left breast ultrasound is recommended to confirm stability. Consideration could be given to performance of an ultrasound-guided biopsy, if patient wishes. ACR BI-RADS Category 3: Probably benign findings. Result letter will be mailed to the patient. Note: At least 10% of breast cancer is not imaged by mammography. Dictated by: Dictated on workstation # [id number]
== END ==
LOC: RAD 13:46
PROVIDERS: ATTEND Nurse Practitioner
DX: N63.21 Unspecified lump in the left breast, upper outer quadrant (principal)
CPT/HCPCS: 76642; 77065; G0279

== ENCOUNTER 2020-09-14 15:50 | Emergency (ER) | payer MEDICAID ==
[~2020-09-14] VITALS: Ht 154 cm; Wt 101.6 kg
[2020-09-14] MEDS ORDERED: ONDANSETRON 4 MG/2 ML (SDV) Z0FRAN ONE (16:07)
[2020-09-14] MEDS ORDERED: NS IV 1000 ML 1,000 ML ONE (16:07)
--- NOTE | 2020-09-14 16:07 | ED Abdominal Pain ---
General Stated Complaint: N/V Source of Information: Patient Exam Limitations: No Limitations History of Present Illness Date Seen by Provider: Sep 14, 2020 Time Seen by Provider: 15:54 Initial Comments This is a well-appearing 49-year-old female who presents to the ER with complaints of nausea, vomiting and mid abdominal pain since 0800 this morning. States she has vomited TNC episodes of green bile and has been unable to keep down food and fluids. States the pain is localized to her abdominal hernia. States she has had protruding abdominal hernia 1 year and has had no complications. Denies fevers, chills, cough, shortness of breath, chest pain, dysuria, or hematuria. Denies COIVD exposure or ill contacts. Timing/Duration: 12-24 Hours Severity/Quality: Moderate Location: Other (mid abdomen ) Radiation: No Radiation Activities at Onset: None Allergies and Home Medications Allergies Coded Allergies: Penicillins (Verified Allergy, Mild, Pt has received Ceftriaxone in the past w/o issue, 03/20/19) Home Medications Aripiprazole 400 Mg Suser.vial, 400 MG IM UD, (Reported) Fluoxetine HCl 20 Mg Capsule, 1 CAP PO DAILY, (Reported) Hydrocodone Bit/Acetaminophen 1 Each Tablet, 1 TAB PO Q6H Prescribed by: BRIANNA ERAZO on 04/27/18 1044 Lisinopril 10 Mg Tablet, 10 MG PO DAILY, (Reported) Nitrofurantoin Monohyd/M-Cryst 100 Mg Capsule, 1 CAP PO BID Prescribed by: YARELI JONES on 03/21/19 1054 Ondansetron 8 Mg Tab.rapdis, 8 MG PO Q6H PRN for NAUSEA/VOMITING Prescribed by: HANNAH SOSA on 03/16/19 1308 Potassium Chloride 20 Meq Tablet.er, 20 MEQ PO BID Prescribed by: CONRADO PAUL on 05/07/15 1532 Quetiapine Fumarate 200 Mg Tablet, 1 TAB PO DAILY, (Reported) Tamsulosin HCl 0.4 Mg Cap, 0.4 MG PO DAILY Prescribed by: HANNAH SOSA on 03/16/19 1308 Tamsulosin HCl 0.4 Mg Cap, 0.4 MG PO DAILY Prescribed by: YARELI JONES on 03/21/19 1054 Patient Home Medication List Home Medication List Reviewed: Yes Review of Systems Review of Systems Constitutional: no symptoms reported EENTM: No Symptoms Reported Respiratory: No Symptoms Reported Cardiovascular: No Symptoms Reported Gastrointestinal: See HPI Genitourinary: No Symptoms Reported Musculoskeletal: no symptoms reported Skin: no symptoms reported Psychiatric/Neurological: No Symptoms Reported Endocrine: No Symptoms Reported Hematologic/Lymphatic: No Symptoms Reported Past Kasbuyb-Mpmauf-Ihqhto Hx Patient Social History Type Used: Cigarettes 2nd Hand Smoke Exposure: Yes Recent Foreign Travel: No Contact w/Someone Who Travel: No Recent Hopitalizations: No Immunizations Up To Date Tetanus Booster (TDap): Unknown PED Vaccines UTD: Yes Date of Influenza Vaccine: Jun 11, 2015 Seasonal Allergies Seasonal Allergies: No Past Medical History Surgeries: Yes (ESWL) Gallbladder, Tubal Ligation Respiratory: No Cardiac: Yes Hypertension Neurological: No Reproductive Disorders: No Female 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 No Pertinent Family Hx Physical Exam Vital Signs Vital Signs - First Documented 09/14/20 16:17 Temp 36.7 Pulse 79 Resp 16 B/P (MAP) 159/98 (118) Pulse Ox 99 Capillary Refill : Height/Weight/BMI Height: 5'1.00" Weight: 225lbs. 0.0oz. 102.698461mf; 42.5 BMI Method:Stated General Appearance: WD/WN, no apparent distress HEENT: PERRL/EOMI, normal ENT inspection, pharynx normal Neck: full range of motion, normal inspection Respiratory: lungs clear, normal breath sounds, no respiratory distress Cardiovascular: regular rate, rhythm, no edema, no murmur Gastrointestinal: abnormal bowel sounds, distended, tenderness (midline abdominal tenderness ), hernia (ventral ) Extremities: normal range of motion, normal inspection Neurologic/Psychiatric: no motor/sensory deficits, alert, normal mood/affect, oriented x 3 Skin: normal color, warm/dry Focused Exam Lactate Level 09/14/20 16:51: Lactic Acid Level 0.35L Lactic Acid Level Laboratory Tests Test 1/10/21 16:51 Lactic Acid Level 0.35 MMOL/L (0.50-2.00) L Progress/Results/Core Measures Results/Orders Lab Results Laboratory Tests Test 09/14/20 16:13 09/14/20 16:51 09/14/20 19:02 Range/Units White Blood Count 16.9 H 4.3-11.0 10^3/uL Red Blood Count 4.64 3.80-5.11 10^6/uL Hemoglobin 9.8 L 11.5-16.0 g/dL Hematocrit 34 L 35-52 % Mean Corpuscular Volume 74 L 80-99 fL Mean Corpuscular Hemoglobin 21 L 25-34 pg Mean Corpuscular Hemoglobin Concent 29 L 32-36 g/dL Red Cell Distribution Width 19.6 H 10.0-14.5 % Platelet Count 404 H 130-400 10^3/uL Mean Platelet Volume 8.8 L 9.0-12.2 fL Immature Granulocyte % (Auto) 1 % Neutrophils (%) (Auto) 91 H 42-75 % Lymphocytes (%) (Auto) 6 L 12-44 % Monocytes (%) (Auto) 2 0-12 % Eosinophils (%) (Auto) 0 0-10 % Basophils (%) (Auto) 0 0-10 % Neutrophils # (Auto) 15.4 H 1.8-7.8 10^3/uL Lymphocytes # (Auto) 1.0 1.0-4.0 10^3/uL Monocytes # (Auto) 0.4 0.0-1.0 10^3/uL Eosinophils # (Auto) 0.0 0.0-0.3 10^3/uL Basophils # (Auto) 0.0 0.0-0.1 10^3/uL Immature Granulocyte # (Auto) 0.1 0.0-0.1 10^3/uL Neutrophils % (Manual) 97 % Monocytes % (Manual) 1 % Band Neutrophils 2 % Hypersegmented Neutrophils SLIGHT Blood Morphology Comment NORMAL Sodium Level 138 135-145 MMOL/L Potassium Level 4.1 3.6-5.0 MMOL/L Chloride Level 106 98-107 MMOL/L Carbon Dioxide Level 20 L 21-32 MMOL/L Anion Gap 12 5-14 MMOL/L Blood Urea Nitrogen 15 7-18 MG/DL Creatinine 1.17 0.60-1.30 MG/DL Estimat Glomerular Filtration Rate 60 BUN/Creatinine Ratio 13 Glucose Level 144 H 70-105 MG/DL Calcium Level 9.1 8.5-10.1 MG/DL Corrected Calcium 8.9 8.5-10.1 MG/DL Total Bilirubin 0.5 0.1-1.0 MG/DL Aspartate Amino Transf (AST/SGOT) 16 5-34 U/L Alanine Aminotransferase (ALT/SGPT) 16 0-55 U/L Alkaline Phosphatase 127 40-136 U/L Total Protein 8.5 H 6.4-8.2 GM/DL Albumin 4.3 3.2-4.5 GM/DL Serum Test, Qualitative NEGATIVE NEGATIVE Lactic Acid Level 0.35 L 0.50-2.00 MMOL/L Lipase 12 8-78 U/L Urine Color YELLOW Urine Clarity SL CLOUDY Urine pH 6.5 5-9 Urine Specific [place] 1.015 L 1.016-1.022 Urine Protein 2+ H NEGATIVE Urine Glucose (UA) NEGATIVE NEGATIVE Urine Ketones 1+ H NEGATIVE Urine Nitrite NEGATIVE NEGATIVE Urine Bilirubin NEGATIVE NEGATIVE Urine Urobilinogen 0.2 < = 1.0 MG/DL Urine Leukocyte Esterase NEGATIVE NEGATIVE Urine RBC (Auto) TRACE-L NEGATIVE Urine RBC 2-5 H /HPF Urine WBC 2-5 /HPF Urine Squamous Epithelial Cells 10-25 H /HPF Urine Crystals NONE /LPF Urine Bacteria MODERATE H /HPF Urine Casts NONE /LPF Urine Mucus MODERATE H /LPF Urine Culture Indicated YES My Orders Orders - VIVI ANN APRN Ondansetron Injection (Zofran Injectio (09/14/20 16:15) Ns Iv 1000 Ml (Sodium Chloride 0.9%) (09/14/20 16:15) Ondansetron Injection (Zofran Injectio (09/14/20 16:07) Ns Iv 1000 Ml (Sodium Chloride 0.9%) (09/14/20 16:07) Ua Culture If Indicated (09/14/20 16:23) Cbc With Automated Diff (09/14/20 16:23) Comprehensive Metabolic Panel (09/14/20 16:23) Manual Differential (09/14/20 16:13) Lipase (09/14/20 16:42) Lactic Acid Analyzer (09/14/20 16:42) Blood Culture (09/14/20 16:42) Hcg,Qualitative Serum (09/14/20 16:45) Ct Abdomen/Pelvis W (09/14/20 16:45) Iohexol Injection (Omnipaque 350 Mg/Ml 1 (09/14/20 17:45) Received Contrast (Hold Metformin- Contr (09/14/20 17:45) Ns (Ivpb) (Sodium Chloride 0.9% Ivpb Bag (09/14/20 17:45) Cefepime Injection (Maxipime Injection) (09/14/20 18:30) Urine Culture (09/14/20 19:02) Blood Culture (09/14/20 19:20) Benzocaine Extension Tube (Hurricaine Ex (09/14/20 19:29) Fentanyl Injection (Sublimaze Injection (09/14/20 20:00) Medications Given in ED Current Medications Medications Dose Ordered Sig/Mikki Route Start Time Stop Time Status Last Admin Dose Admin Cefepime HCl 1000 mg/Sterile Water 10 ml @ 200 mls/hr ONCE ONCE IV 09/14/20 18:30 09/14/20 18:32 DC 09/14/20 19:18 200 MLS/HR Fentanyl Citrate 50 mcg ONCE ONCE IVP 09/14/20 20:00 09/14/20 20:01 DC 09/14/20 20:12 50 MCG Iohexol 100 ml ONCE ONCE IV 09/14/20 17:45 09/14/20 17:46 DC 09/14/20 18:33 100 ML Ondansetron HCl 4 mg ONCE ONCE IVP 09/14/20 16:15 09/14/20 16:16 DC 09/14/20 16:12 4 MG Sodium Chloride 100 ml ONCE ONCE IV 09/14/20 17:45 09/14/20 17:46 DC 09/14/20 18:33 80 ML Sodium Chloride 1,000 ml @ 100 mls/hr Q10H ONCE IV 09/14/20 16:15 09/14/20 20:53 DC 09/14/20 16:13 100 MLS/HR Vital Signs/I&O 09/14/20 09/14/20 16:17 20:48 Temp 36.7 Pulse 79 87 Resp 16 20 B/P (MAP) 159/98 (118) 159/98 Pulse Ox 99 98 Progress Progress Note : Progress Note Pt. examined. Noted to have green emesis in basin. States she has vomited TNC. Has chronic ventral hernia but states she has pain at hernia site today. Pain is present with deep palpation. Labs and CT abd/pelvis with contrast ordered. Labs reviewed. Elevated WBC-16.9, Hgb-9.8, Plt-404, Lactic-0.35, Lipase-12. Cefepime 1gm IV ordered for UTI. CT abd/pelvis shows a midline ventral hernia with a loop of small bowel within the hernia sac which is dilated. Called Dr. Yin. Recommended attempting to reduce hernia, and admit Obs for partial bowel obstruction. Place NGT on LWIS, NPO, and order small bowel follow through in AM. Reviewed plan with patient and she is agreeable with plan. RN attempted to place NGT to left nare. Pt. pulled out stating this was too painful and she would rather go home. Discussed leaving against medical advice and risk of worsening condition and even . Agreeable to let me try to place NGT after receiving pain medication. Attempted to placed NGT after she received Fentanyl 50mcg IVP. Was able to pass NGT easily through nare, however she pulled it out stating "No, it hurts to much sitting in there". Patient given break, and asked if I could attempt to reduce hernia, she is agreeable. Attempted to manually reduce hernia, but she requested I stop stating it was too painful. States she feels much better and she would like to go home. Again reviewed risk of leaving AMA and benefits of staying and receiving care. She verbalized understanding and states she would like to go home. Given abdominal binder for hernia. Reviewed risks of leaving against medical advice which included worsening condition and prior to leaving. She verbalized understanding and signed AMA documents. Diagnostic Imaging Diagonstic Imaging: CT Plain Films/CT/US/NM/MRI: abdomen Comments NAME: JAIMEE RAY MED REC#: [id number] PT STATUS: REG ER : 1970 PHYSICIAN: VIVI ANN APRN ADMIT DATE: 09/14/20/ER Draft Date of Exam:09/14/20 CT ABDOMEN/PELVIS W INDICATION: Mid abdominal pain and nausea and vomiting. TECHNIQUE: Multiple contiguous axial images were obtained through the abdomen and pelvis after administration of intravenous contrast. Auto Exposure Controls were utilized during the CT exam to meet ALARA standards for radiation dose reduction. All CT scans use one or more of the following dose optimizing techniques: automated exposure control, MA and/or KvP adjustment based on patient size and exam type or iterative reconstruction. COMPARISON: 03/16/2019. FINDINGS: The visualized portions of the lung bases are clear. There is no pleural fluid collection. There is no free intraperitoneal air. The liver shows no focal lesion. Patient has had previous cholecystectomy. Spleen, adrenals, and pancreas appear normal. Kidneys, bilaterally, show no hydronephrosis or ureteral stone. There are multiple intrarenal stones in both kidneys. The hydronephrotic changes seen on the previous study of 03/16/2019, bilaterally, have resolved. There is no ascites or abnormal fluid collection. There is a ventral hernia in the midline anteriorly. This contains a loop of small bowel which is distended and fluid-filled. The remainder of the bowel loops are not distended, colonic loops are not distended. IMPRESSION: 1. There is a ventral hernia in the midline. There is a loop of small bowel within the hernia sac which is dilated. This may represent early or partial obstruction. The remainder of the small bowel loops are not appreciably dilated, colonic loops are not dilated. The hernia defect measuring about 3.2 cm. 2. There are nonocclusive stones in both kidneys. The hydronephrotic changes visualized on 03/16/2019 have resolved. Patient has had previous cholecystectomy. Dictated on workstation # [id number] Dict: 09/14/20 1843 Trans: 09/14/20 1856 [facility] [id number] Interpreted by: DIANA JOHNSON MD Electronically signed by: Departure Communication (Admissions) Time/Spoke to Admitting Phy: 19:[address] Yin. Admit patient obs, NPO, NGT with LWIS, and small bowel follow through in am. Impression Primary Impression: Ventral hernia with bowel obstruction Additional Impressions: Nausea & vomiting UTI (urinary tract infection) Disposition: 07 AGAINST MEDICAL ADVICE Condition: Improved Admissions Decision to Admit Reason: Admit from ER (General) Decision to Admit/Date: Sep 14, 2020 Time/Decision to Admit Time: 19:00 Departure-Patient Inst. Referrals: [facility] (PCP/Family) Primary Care Physician VIVI ANN APRN Sep 14, 2020 16:07
[2020-09-14] MEDS ORDERED: NS IV 1000 ML 1,000 ML IV ONE (16:15)
[2020-09-14] MEDS ORDERED: ONDANSETRON 4 MG/2 ML (SDV) Z0FRAN IVP ONE (16:15)
[2020-09-14 16:33] LABS: BASOPHILS % (AUTO) 0 % (0-10); EOSINOPHILS % (AUTO) 0 % (0-10); HEMATOCRIT 34 % (35-52); HEMOGLOBIN 9.8 g/dL (11.5-16.0); LYMPHOCYTES % (AUTO) 6 % (12-44); MEAN CORPUSCULAR HEMOGLOBIN 21 pg (25-34); MEAN CORPUSCULAR HGB CONC 29 g/dL (32-36); MEAN CORPUSCULAR VOLUME 74 fL (80-99); MEAN PLATELET VOLUME 8.8 fL (9.0-12.2); MONOCYTES # (AUTO) 0.4 10^3/uL (0.0-1.0); MONOCYTES % (AUTO) 2 % (0-12); NEUTROPHILS # (AUTO) 15.4 10^3/uL (1.8-7.8); NEUTROPHILS % (AUTO) 91 % (42-75); PLATELET COUNT 404 10^3/uL (130-400); WHITE BLOOD COUNT 16.9 10^3/uL (4.3-11.0)
[2020-09-14 16:37] LABS: ALBUMIN 4.3 GM/DL (3.2-4.5)
[2020-09-14 16:38] LABS: POTASSIUM 4.1 MMOL/L (3.6-5.0)
[2020-09-14 16:39] LABS: CALCIUM 9.1 MG/DL (8.5-10.1)
[2020-09-14 16:40] LABS: TOTAL PROTEIN 8.5 GM/DL (6.4-8.2)
[2020-09-14 16:42] LABS: BILIRUBIN,TOTAL 0.5 MG/DL (0.1-1.0)
[2020-09-14 16:43] LABS: CREATININE SERUM 1.17 MG/DL (0.60-1.30)
[2020-09-14 17:03] LABS: BAND NEUTROPHILS 2 %; MONOCYTES % (MANUAL) 1 %; NEUTROPHILS % (MANUAL) 97 %
[2020-09-14 17:04] LABS: HYPERSEGMENTED NEUT SLIGHT; RBC MORPH NORMAL
[2020-09-14] MEDS ORDERED: NS 100 ML (IVPB) BAG IV ONE (17:45)
[2020-09-14] MEDS ORDERED: HOLD METFORMIN - RECEIVED CONTRAST 20 ML VIAL IV SCH (17:45)
[2020-09-14] MEDS ORDERED: IOHEXOL 350 MG/ML 100 ML (OMNIPAQUE 350) VIAL IV ONE (17:45)
[2020-09-14] MEDS ORDERED: CEFEPIME INJECTION 1,000 MG in WATER (STERILE) FOR INJECTION 10 ML IV ONE (18:30)
--- NOTE | 2020-09-14 18:58 | Diagnostic Imaging Report ---
INDICATION: Mid abdominal pain and nausea and vomiting. TECHNIQUE: Multiple contiguous axial images were obtained through the abdomen and pelvis after administration of intravenous contrast. Auto Exposure Controls were utilized during the CT exam to meet ALARA standards for radiation dose reduction. All CT scans use one or more of the following dose optimizing techniques: automated exposure control, MA and/or KvP adjustment based on patient size and exam type or iterative reconstruction. COMPARISON: 03/16/2019. FINDINGS: The visualized portions of the lung bases are clear. There is no pleural fluid collection. There is no free intraperitoneal air. The liver shows no focal lesion. Patient has had previous cholecystectomy. Spleen, adrenals, and pancreas appear normal. Kidneys, bilaterally, show no hydronephrosis or ureteral stone. There are multiple intrarenal stones in both kidneys. The hydronephrotic changes seen on the previous study of 03/16/2019, bilaterally, have resolved. There is no ascites or abnormal fluid collection. There is a ventral hernia in the midline anteriorly. This contains a loop of small bowel which is distended and fluid-filled. The remainder of the bowel loops are not distended, colonic loops are not distended. IMPRESSION: 1. There is a ventral hernia in the midline. There is a loop of small bowel within the hernia sac which is dilated. This may represent early or partial obstruction. The remainder of the small bowel loops are not appreciably dilated, colonic loops are not dilated. The hernia defect measuring about 3.2 cm. 2. There are nonocclusive stones in both kidneys. The hydronephrotic changes visualized on 03/16/2019 have resolved. Patient has had previous cholecystectomy. Dictated by: Dictated on workstation # [id number]
[2020-09-14 19:11] LABS: BILIRUBIN,URINE NEGATIVE (NEGATIVE); CLARITY,URINE SL CLOUDY; COLOR,URINE YELLOW; GLUCOSE, URINE (UA) NEGATIVE (NEGATIVE); KETONES,URINE 1+ (NEGATIVE); LEUKOCYTE ESTERASE ,URINE NEGATIVE (NEGATIVE); NITRITE,URINE NEGATIVE (NEGATIVE); PH,URINE 6.5 (5-9); PROTEIN,URINE 2+ (NEGATIVE)
[2020-09-14 19:17] LABS: BACTERIA,URINE MODERATE /HPF
[2020-09-14] MEDS ORDERED: HURRICAINE EXT TUBE (BENZOCAINE) ONE (19:29)
[2020-09-14] MEDS ORDERED: fentaNYL INJECTION 100 MCG/2 ML AMP IVP ONE (20:00)
[2020-09-14 20:48] VITALS: BP 159/98
[2020-09-17] MEDS ORDERED: ACHD5005 PO (11:13)
== END 2020-09-14 20:48 | disposition left against medical advice (07) ==
LOC: EDUNIT# 15:50 → ER 15:52
DX: K43.6 Other and unspecified ventral hernia with obstruction, without gangrene (principal); R11.2 Nausea with vomiting, unspecified; N39.0 Urinary tract infection, site not specified; I10 Essential (primary) hypertension; G89.29 Other chronic pain; M54.9 Dorsalgia, unspecified; F20.9 Schizophrenia, unspecified; F32.9 Major depressive disorder, single episode, unspecified; Z88.0 Allergy status to penicillin; Z77.22 Contact with and (suspected) exposure to environmental tobacco smoke (acute) (chronic); Z79.891 Long term (current) use of opiate analgesic
CPT/HCPCS: 36415; 74177; 80053; 81000; 83605; 83690; 84703; 85007; 85027; 87040; 87088

== ENCOUNTER 2020-09-15 15:27 | Inpatient (IN) | payer MEDICAID ==
[~2020-09-15] VITALS: Ht 154 cm; Wt 101.0 kg
[2020-09-15] MEDS ORDERED: morphine INJ 10 MG/ML 1ML (SYR OR VIAL) IVP STA ×2 (15:54→16:11)
--- NOTE | 2020-09-15 16:04 | ED Abdominal Pain ---
General Chief Complaint: Abdominal/GI Problems Stated Complaint: BOWEL OBSTRUCTION Nursing Triage Note: PT ARRIVED PER EMS, PT CO OF HAVING BOWEL OBSTRUCTION YESTERDAY IN HOSP AND LEFT AMA, PT STATES HAS BEEN VOMITING TODAY AFTER TRYING TO TAKE IN FLUIDS. PT CO OF ABD PAIN Sepsis Screen: No Definite Risk Source of Information: Patient Exam Limitations: No Limitations History of Present Illness Date Seen by Provider: Sep 15, 2020 Time Seen by Provider: 16:00 Initial Comments Patient is a 49-year-old female who presents to the emergency department today with a chief complaint of abdominal pain, nausea and vomiting. Patient was seen here in the emergency department yesterday and diagnosed with an incarcerated ventral abdominal hernia. Multiple attempts were made to place an NG tube yesterday and the patient declined this and decided to leave AGAINST MEDICAL ADVICE. During this course of that evaluation the patient was also found to have a urinary tract infection. She was treated with 1 g of cefepime here in the emergency department but did not get any antibiotics to fill as an outpatient. Patient states that she was trying to drink a smoothie at around 2:00 this afternoon when she started vomiting. Patient states that she vomited everything up that she drank. She complains of pain at the hernia site. No fevers, chills, URI symptoms. Patient's last bowel movement was sometime last week. She states she is not even passing gas at this point. Patient is nauseated with the pain. All other review of systems reviewed negative except as stated above. Timing/Duration: 2-3 Days Severity/Quality: Severe Location: Epigastric, Generalized Abdomen Radiation: No Radiation Activities at Onset: None Associated Symptoms: Nausea/Vomiting Allergies and Home Medications Allergies Coded Allergies: Penicillins (Verified Allergy, Mild, Pt has received Ceftriaxone in the past w/o issue, 03/20/19) Home Medications Aripiprazole 400 Mg Suser.vial, 400 MG IM UD, (Reported) Fluoxetine HCl 20 Mg Capsule, 1 CAP PO DAILY, (Reported) Hydrocodone Bit/Acetaminophen 1 Each Tablet, 1 TAB PO Q6H Prescribed by: BRIANNA ERAZO on 04/27/18 1044 Lisinopril 10 Mg Tablet, 10 MG PO DAILY, (Reported) Nitrofurantoin Monohyd/M-Cryst 100 Mg Capsule, 1 CAP PO BID Prescribed by: YARELI JONES on 03/21/19 1054 Ondansetron 8 Mg Tab.rapdis, 8 MG PO Q6H PRN for NAUSEA/VOMITING Prescribed by: HANNAH SOSA on 03/16/19 1308 Potassium Chloride 20 Meq Tablet.er, 20 MEQ PO BID Prescribed by: CONRADO PAUL on 05/07/15 1532 Quetiapine Fumarate 200 Mg Tablet, 1 TAB PO DAILY, (Reported) Tamsulosin HCl 0.4 Mg Cap, 0.4 MG PO DAILY Prescribed by: HANNAH SOSA on 03/16/19 1308 Tamsulosin HCl 0.4 Mg Cap, 0.4 MG PO DAILY Prescribed by: YARELI JONES on 03/21/19 1054 Patient Home Medication List Home Medication List Reviewed: Yes Review of Systems Review of Systems Constitutional: see HPI EENTM: No Symptoms Reported Respiratory: No Symptoms Reported Cardiovascular: No Symptoms Reported Gastrointestinal: Abdomen Distended, Abdominal Pain, Nausea, Poor Appetite, Vomiting Genitourinary: No Symptoms Reported Musculoskeletal: no symptoms reported Skin: no symptoms reported All Other Systems Reviewed Negative Unless Noted: Yes Past Ppxdtwg-Ihoueb-Iblioq Hx Patient Social History Alcohol Use: Denies Use Smoking Status: Current Everyday Smoker Type Used: Cigarettes 2nd Hand Smoke Exposure: Yes Recent Infectious Disease Expo: No Recent Hopitalizations: No Immunizations Up To Date Tetanus Booster (TDap): Unknown PED Vaccines UTD: Yes Date of Influenza Vaccine: Jun 11, 2015 Seasonal Allergies Seasonal Allergies: No Past Medical History Surgeries: Yes (ESWL) Gallbladder, Tubal Ligation Respiratory: No Cardiac: Yes Hypertension Neurological: No Reproductive Disorders: No 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 No Pertinent Family Hx Physical Exam Vital Signs Vital Signs - First Documented 09/15/20 15:30 Pulse 72 Resp 18 B/P (MAP) 156/89 (111) Pulse Ox 98 Capillary Refill : Less Than 3 Seconds Height/Weight/BMI Height: 5'1.00" Weight: 225lbs. 0.0oz. 102.359362si; 42.00 BMI Method:Stated General Appearance: WD/WN, no apparent distress Respiratory: lungs clear, normal breath sounds, no respiratory distress, no accessory muscle use Cardiovascular: regular rate, rhythm Gastrointestinal: normal bowel sounds, soft, other (Ventral abdominal hernia left upper quadrant firm with bowel sounds auscultated over the hernia sac) Extremities: normal inspection Neurologic/Psychiatric: alert, normal mood/affect, oriented x 3 Skin: normal color, warm/dry Progress/Results/Core Measures Results/Orders Lab Results Laboratory Tests Test 09/15/20 15:35 Range/Units White Blood Count 21.2 H 4.3-11.0 10^3/uL Red Blood Count 4.68 3.80-5.11 10^6/uL Hemoglobin 10.0 L 11.5-16.0 g/dL Hematocrit 34 L 35-52 % Mean Corpuscular Volume 72 L 80-99 fL Mean Corpuscular Hemoglobin 21 L 25-34 pg Mean Corpuscular Hemoglobin Concent 30 L 32-36 g/dL Red Cell Distribution Width 19.5 H 10.0-14.5 % Platelet Count 430 H 130-400 10^3/uL Mean Platelet Volume 8.9 L 9.0-12.2 fL Immature Granulocyte % (Auto) 1 % Neutrophils (%) (Auto) 88 H 42-75 % Lymphocytes (%) (Auto) 7 L 12-44 % Monocytes (%) (Auto) 4 0-12 % Eosinophils (%) (Auto) 0 0-10 % Basophils (%) (Auto) 0 0-10 % Neutrophils # (Auto) 18.6 H 1.8-7.8 10^3/uL Lymphocytes # (Auto) 1.5 1.0-4.0 10^3/uL Monocytes # (Auto) 0.8 0.0-1.0 10^3/uL Eosinophils # (Auto) 0.0 0.0-0.3 10^3/uL Basophils # (Auto) 0.1 0.0-0.1 10^3/uL Immature Granulocyte # (Auto) 0.2 H 0.0-0.1 10^3/uL Neutrophils % (Manual) 86 % Lymphocytes % (Manual) 10 % Monocytes % (Manual) 4 % Anisocytosis SLIGHT Sodium Level 135 135-145 MMOL/L Potassium Level 3.9 3.6-5.0 MMOL/L Chloride Level 105 98-107 MMOL/L Carbon Dioxide Level 21 21-32 MMOL/L Anion Gap 9 5-14 MMOL/L Blood Urea Nitrogen 11 7-18 MG/DL Creatinine 0.95 0.60-1.30 MG/DL Estimat Glomerular Filtration Rate > 60 BUN/Creatinine Ratio 12 Glucose Level 123 H 70-105 MG/DL Calcium Level 9.0 8.5-10.1 MG/DL My Orders Orders - CHESTER VIEIRA MD Cbc With Automated Diff (09/15/20 15:42) Basic Metabolic Panel (09/15/20 15:42) Morphine Injection (Morphine Injection (09/15/20 15:54) Ondansetron Injection (Zofran Injectio (09/15/20 16:15) Ns Iv 1000 Ml (Sodium Chloride 0.9%) (09/15/20 16:15) Manual Differential (09/15/20 15:35) Morphine Injection (Morphine Injection (09/15/20 16:11) Medications Given in ED Current Medications Medications Dose Ordered Sig/Mikki Route Start Time Stop Time Status Last Admin Dose Admin Ondansetron HCl 8 mg ONCE ONCE IVP 09/15/20 16:15 09/15/20 16:16 DC 09/15/20 16:11 8 MG Vital Signs/I&O 09/15/20 15:30 Pulse 72 Resp 18 B/P (MAP) 156/89 (111) Pulse Ox 98 Blood Pressure Mean: 111 Progress Progress Note : Time: 16:25 Progress Note attempted manual reduction of the hernia after 4mg of morphine. this was unsuccessful. Discussed with Dr Yin, the patient is actually Dr Erazo's - he took out her gallbladder a year ago. He will be down to see her. Patient's WBC has increased to 21k. 1633 Dr Erazo will take her to the OR. Departure Communication (Admissions) Time/Spoke to Admitting Phy: 16:33 Dr Erazo will admit and take the patient to the OR for repair of the hernia Impression Primary Impression: Ventral hernia with bowel obstruction Disposition: ADMITTED INPATIENT Condition: Stable Admissions Decision to Admit Reason: Admit from ER (General) Decision to Admit/Date: Sep 15, 2020 Time/Decision to Admit Time: 16:34 Departure-Patient Inst. Referrals: [facility] (PCP/Family) Primary Care Physician CHESTER VIEIRA MD Sep 15, 2020 16:04
[2020-09-15 16:05] LABS: BASOPHILS # (AUTO) 0.1 10^3/uL (0.0-0.1); BASOPHILS % (AUTO) 0 % (0-10); EOSINOPHILS % (AUTO) 0 % (0-10); HEMATOCRIT 34 % (35-52); LYMPHOCYTES # (AUTO) 1.5 10^3/uL (1.0-4.0); LYMPHOCYTES % (AUTO) 7 % (12-44); MEAN CORPUSCULAR HEMOGLOBIN 21 pg (25-34); MEAN CORPUSCULAR HGB CONC 30 g/dL (32-36); MEAN CORPUSCULAR VOLUME 72 fL (80-99); MEAN PLATELET VOLUME 8.9 fL (9.0-12.2); MONOCYTES # (AUTO) 0.8 10^3/uL (0.0-1.0); MONOCYTES % (AUTO) 4 % (0-12); NEUTROPHILS # (AUTO) 18.6 10^3/uL (1.8-7.8); NEUTROPHILS % (AUTO) 88 % (42-75); PLATELET COUNT 430 10^3/uL (130-400); WHITE BLOOD COUNT 21.2 10^3/uL (4.3-11.0)
[2020-09-15 16:15] LABS: CHLORIDE 105 MMOL/L (98-107); POTASSIUM 3.9 MMOL/L (3.6-5.0); SODIUM 135 MMOL/L (135-145)
[2020-09-15] MEDS ORDERED: NS IV 1000 ML 1,000 ML IV SCH (16:15)
[2020-09-15] MEDS ORDERED: ONDANSETRON 4 MG/2 ML (SDV) Z0FRAN IVP ONE (16:15)
[2020-09-15 16:17] LABS: GLUCOSE 123 MG/DL (70-105)
[2020-09-15 16:18] LABS: CARBON DIOXIDE 21 MMOL/L (21-32)
[2020-09-15 16:21] LABS: CREATININE SERUM 0.95 MG/DL (0.60-1.30); GFR ESTIMATED > 60
[2020-09-15 16:22] LABS: BUN/CREATININE RATIO 12
[2020-09-15 16:28] LABS: ANISOCYTOSIS SLIGHT; LYMPHOCYTES % (MANUAL) 10 %; MONOCYTES % (MANUAL) 4 %; NEUTROPHILS % (MANUAL) 86 %
--- NOTE | 2020-09-15 16:30 | NUR ---
DR ERAZO HERE TO SEE PT. CONSENT FOR SURGERY SIGNED BY PT.
--- NOTE | 2020-09-15 16:43 | Consultation - Surgery ---
History of Present Illness History of Present Illness Patient Consulted On(jolanta/time) 09/15/20 16:37 Time Seen by Provider: 16:01 History of Present Illness Surgery asked to consult regarding possible bowel obstruction. HPI per ED: PT ARRIVED PER EMS, PT CO OF HAVING BOWEL OBSTRUCTION YESTERDAY IN HOSP AND LEFT AMA, PT STATES HAS BEEN VOMITING TODAY AFTER TRYING TO TAKE IN FLUIDS. PT CO OF ABD PAIN Patient is a 49-year-old female who presents to the emergency department today with a chief complaint of abdominal pain, nausea and vomiting. Patient was seen here in the emergency department yesterday and diagnosed with an incarcerated ventral abdominal hernia. Multiple attempts were made to place an NG tube yesterday and the patient declined this and decided to leave AGAINST MEDICAL ADVICE. During this course of that evaluation the patient was also found to have a urinary tract infection. She was treated with 1 g of cefepime here in the emergency department but did not get any antibiotics to fill as an outpatient. Patient states that she was trying to drink a smoothie at around 2:00 this afternoon when she started vomiting. Patient states that she vomited everything up that she drank. She complains of pain at the hernia site. No fevers, chills, URI symptoms. Patient's last bowel movement was sometime last week. She states she is not even passing gas at this point. Patient is nauseated with the pain. When I spoke to pt she had received morphine shot and felt much better, rating the pain 3 out of 10. Prior to that it was 10 out of 10 sharp, stabbing and cramping. Associated with nausea. Pain is just above her umbilicus at hernia. Pt had pain yesterday but didn't want to stay. I have seen pt prior; did a lap flaquito on her. Allergies and Home Medications Allergies Coded Allergies: Penicillins (Verified Allergy, Mild, Pt has received Ceftriaxone in the past w/o issue, 03/20/19) Home Medications Aripiprazole 400 Mg Suser.vial, 400 MG IM UD, (Reported) Fluoxetine HCl 20 Mg Capsule, 1 CAP PO DAILY, (Reported) Hydrocodone Bit/Acetaminophen 1 Each Tablet, 1 TAB PO Q6H Prescribed by: BRIANNA ERAZO on 04/27/18 1044 Lisinopril 10 Mg Tablet, 10 MG PO DAILY, (Reported) Nitrofurantoin Monohyd/M-Cryst 100 Mg Capsule, 1 CAP PO BID Prescribed by: YARELI JONES on 03/21/19 1054 Ondansetron 8 Mg Tab.rapdis, 8 MG PO Q6H PRN for NAUSEA/VOMITING Prescribed by: HANNAH SOSA on 03/16/19 1308 Potassium Chloride 20 Meq Tablet.er, 20 MEQ PO BID Prescribed by: CONRADO PAUL on 05/07/15 1532 Quetiapine Fumarate 200 Mg Tablet, 1 TAB PO DAILY, (Reported) Tamsulosin HCl 0.4 Mg Cap, 0.4 MG PO DAILY Prescribed by: HANNAH SOSA on 03/16/19 1308 Tamsulosin HCl 0.4 Mg Cap, 0.4 MG PO DAILY Prescribed by: YARELI JONES on 03/21/19 1054 Patient Home Medication List Home Medication List Reviewed: Yes Past Iekwvxe-Kydliq-Qpgfjq Hx Patient Social History Smoking Status: Current Everyday Smoker Type Used: Cigarettes 2nd Hand Smoke Exposure: Yes Recent Hopitalizations: No Immunizations Up To Date Tetanus Booster (TDap): Unknown PED Vaccines UTD: Yes Date of Influenza Vaccine: Jun 11, 2015 Seasonal Allergies Seasonal Allergies: No Surgeries History of Surgeries: Yes (ESWL) Surgeries: Gallbladder, Tubal Ligation Respiratory History of Respiratory Disorde: No Cardiovascular History of Cardiac Disorders: Yes Cardiac Disorders: Hypertension Neurological History of Neurological Disord: No Reproductive System Hx Reproductive Disorders: No Sexually Transmitted Disease: No HIV/AIDS: No Female Reproductive Disorders: Denies 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 Genitourinary History of Genitourinary Disor: Yes Genitourinary Disorders: Kidney Stones Gastrointestinal History of Gastrointestinal Di: Yes Gastrointestinal Disorders: Gall Bladder Disease Musculoskeletal History of Musculoskeletal Dis: Yes Musculoskeletal Disorders: Chronic Back Pain Endocrine History of Endocrine Disorders: No HEENT History of HEENT Disorders: Yes (GLASSES) Loss of Vision: Denies Hearing Impairment: Denies Cancer History of Cancer: No Psychosocial History of Psychiatric Problem: Yes (EXTENSIVE PSYCH ISSUES) Behavioral Health Disorders: Anxiety, Suicide Attempts, Schizophrenia, Depression Integumentary History of Skin or Integumenta: No Blood Transfusions History of Blood Disorders: No Adverse Reaction to a Blood Tr: No (N/A) Family Medical History Significant Family History: Psychiatric Problems (mother was schizophrenic) Review of Systems-General Constitutional: malaise, weakness EENTM: No blurred vision, No double vision, No mouth pain, No mouth swelling, No epistaxis Respiratory: No cough, No dyspnea on exertion, No short of breath Cardiovascular: No chest pain, No edema, No palpitations Gastrointestinal: abdominal pain; No jaundice; nausea, vomiting Genitourinary: No dysuria, No frequency, No hematuria Musculoskeletal: back pain; No joint pain, No joint swelling, No muscle stiffness Skin: No change in color, No change in hair/nails Psychiatric/Neurological: Emotional Problems; Denies Seizure, Denies Tremors Other pt denies any hx of abnormal bleeding or bruising Physical Exam-General Problems Physical Exam Vital Signs Vital Signs - First Documented 09/15/20 15:30 Pulse 72 Resp 18 B/P (MAP) 156/89 (111) Pulse Ox 98 Capillary Refill : Less Than 3 Seconds General Appearance: WD/WN, no apparent distress, obese Eyes: Bilateral Eye PERRL, Bilateral Eye EOMI HEENT: pharynx normal; No scleral icterus (R), No scleral icterus (L); other (mucous membranes moist) Neck: non-tender, full range of motion, supple Respiratory: lungs clear, normal breath sounds, no respiratory distress, no accessory muscle use Cardiovascular: regular rate, rhythm, no murmur Gastrointestinal: distended, guarding, rebound, tenderness, hernia (incarcerated ventral hernia) Back: no CVA tenderness, no vertebral tenderness Extremities: normal range of motion, no pedal edema, no calf tenderness, normal capillary refill Neurologic/Psychiatric: manager digital II-XII nml as tested, no motor/sensory deficits, oriented x 3 Skin: normal color, warm/dry Lymphatic: no adenopathy (neck, axilla or groin) Data Review Labs Laboratory Tests 09/15/20 15:35: White Blood Count 21.2H, Red Blood Count 4.68, Hemoglobin 10.0L, Hematocrit 34L, Mean Corpuscular Volume 72L, Mean Corpuscular Hemoglobin 21L, Mean Corpuscular Hemoglobin Concent 30L, Red Cell Distribution Width 19.5H, Platelet Count 430H, Mean Platelet Volume 8.9L, Immature Granulocyte % (Auto) 1, Neutrophils (%) (Auto) 88H, Lymphocytes (%) (Auto) 7L, Monocytes (%) (Auto) 4, Eosinophils (%) (Auto) 0, Basophils (%) (Auto) 0, Neutrophils # (Auto) 18.6H, Lymphocytes # (Auto) 1.5, Monocytes # (Auto) 0.8, Eosinophils # (Auto) 0.0, Basophils # (Auto) 0.1, Immature Granulocyte # (Auto) 0.2H, Neutrophils % (Manual) 86, Lymphocytes % (Manual) 10, Monocytes % (Manual) 4, Anisocytosis SLIGHT, Sodium Level 135, Potassium Level 3.9, Chloride Level 105, Carbon Dioxide Level 21, Anion Gap 9, Blood Urea Nitrogen 11, Creatinine 0.95, Estimat Glomerular Filtration Rate > 60, BUN/Creatinine Ratio 12, Glucose Level 123H, Calcium Level 9.0 Radiology Date of Exam:09/14/20 CT ABDOMEN/PELVIS W INDICATION: Mid abdominal pain and nausea and vomiting. TECHNIQUE: Multiple contiguous axial images were obtained through the abdomen and pelvis after administration of intravenous contrast. Auto Exposure Controls were utilized during the CT exam to meet ALARA standards for radiation dose reduction. All CT scans use one or more of the following dose optimizing techniques: automated exposure control, MA and/or KvP adjustment based on patient size and exam type or iterative reconstruction. COMPARISON: 03/16/2019. FINDINGS: The visualized portions of the lung bases are clear. There is no pleural fluid collection. There is no free intraperitoneal air. The liver shows no focal lesion. Patient has had previous cholecystectomy. Spleen, adrenals, and pancreas appear normal. Kidneys, bilaterally, show no hydronephrosis or ureteral stone. There are multiple intrarenal stones in both kidneys. The hydronephrotic changes seen on the previous study of 03/16/2019, bilaterally, have resolved. There is no ascites or abnormal fluid collection. There is a ventral hernia in the midline anteriorly. This contains a loop of small bowel which is distended and fluid-filled. The remainder of the bowel loops are not distended, colonic loops are not distended. IMPRESSION: 1. There is a ventral hernia in the midline. There is a loop of small bowel within the hernia sac which is dilated. This may represent early or partial obstruction. The remainder of the small bowel loops are not appreciably dilated, colonic loops are not dilated. The hernia defect measuring about 3.2 cm. 2. There are nonocclusive stones in both kidneys. The hydronephrotic changes visualized on 03/16/2019 have resolved. Patient has had previous cholecystectomy. Dictated by: Dictated on workstation # [id number] Assessment/Plan Assessment/Plan Assessment/Plan Incarcerated Incisional/Ventral hernia Morbid Obesity Psychiatric problems HTN Pt has an incarcerated incisional/ventral hernia and I am concerned it could be strangulated. Her WBC was 16.9 yesterday and is 21.2K today. An attempt to reduce it was made by the ER physician, which was unsuccessful. I spoke with pt and explained that I believe she needs to go to surgery to look/reduce/repair or resect this area. She asked about hernia repair and I told her we could do that if the bowel is not . Plan for Laparoscopic Ventral Herniarraphy with possible mesh placement, possible open, possible bowel resection. I went over risks and complications with the pt; including but not limited to pain, bleeding, infection, scar, damage to bowel and need for further procedure. I also talked to her about the fact that her BMI will increase risk of mesh failure 9-15% (if we can even do mesh) and on top of that smoking will increase another 15%; cumulative would be up to 30%. She will get IV fluids, IV ABX, pain meds, anti-emetics as needed and will be admitted at least overnight. She will be able to go home when her pain is controlled and she is tolerating oral diet. All questions answered to her satisfaction. BRIANNA ERAZO DO Sep 15, 2020 16:43
--- NOTE | 2020-09-15 16:49 | NUR ---
SPOKE W FAMILY CO PT GOING TO SURGERY.
[2020-09-15] MEDS ORDERED: proPOfol 200 MG/20 ML (DIPRIVAN) VIAL IV ONE (17:09)
[2020-09-15] MEDS ORDERED: LIDOCAINE PF 2% 5 ML (XYLOCAINE) VIAL ONE (17:09)
[2020-09-15] MEDS ORDERED: MIDAZOLAM 2 MG/2 ML (VERSED) VIAL ONE (17:10)
[2020-09-15] MEDS ORDERED: fentaNYL INJECTION 100 MCG/2 ML AMP ONE (17:10)
[2020-09-15] MEDS ORDERED: ceFAZolin INJECTION 2,000 MG ONE (17:19)
[2020-09-15] MEDS ORDERED: LIDOCAINE/EPI 1%-1:100,000 (XYLOCAINE) 50 ML ONE (17:22)
[2020-09-15] MEDS: LACTATED RINGERS 1,000 ML IV PRN ×2 (17:29→18:54)
[2020-09-15] MEDS ORDERED: ROCURONIUM 10 MG/ML 5 ML SYRINGE IV ONE (18:31)
[2020-09-15] MEDS ORDERED: SUCCINYLCHOLINE INJ 100 MG/5 ML SYR/VIAL ONE (18:31)
[2020-09-15] MEDS ORDERED: ONDANSETRON 4 MG/2 ML (SDV) Z0FRAN ONE (18:31)
[2020-09-15] MEDS ORDERED: SEVOFLURANE (ULTANE) 15 ML INHAL SOLN ONE (18:36)
[2020-09-15] MEDS ORDERED: NEOSTIGMINE 3 MG/3 ML VIAL ONE (18:42)
[2020-09-15] MEDS ORDERED: GLYCOPYRROLATE 0.2 MG/ML (ROBINUL) 2 ML VIAL ONE (18:42)
--- NOTE | 2020-09-15 18:53 | Progress Note-Post Operative ---
Post-Operative Progess Note Surgeon (s)/Cash Teller (s) Surgeon BRIANNA ERAZO DO Cash Teller: Annamaria Pre-Operative Diagnosis Incarcerated Ventral/Incisional hernia Post-Operative Diagnosis Strangulated Ventral/Incisional hernia Ischemic bowel Ischemic omentum Umbilical herniarraphy Procedure & Operative Findings Date of Procedure 09/15/20 Procedure Performed/Findings Lap to Open Ventral Herniarraphy Partial small bowel resection Partial Omentectomy Anesthesia Type GET Estimated Blood Loss Estimated blood loss (mL): 100ml Specimens/Packing Specimens Removed portion of omentum hernia sac portion of small bowel BRIANNA ERAZO DO Sep 15, 2020 18:53
[2020-09-15] MEDS ORDERED: ONDANSETRON 4 MG/2 ML (SDV) Z0FRAN IVP PRN (19:00)
[2020-09-15] MEDS ORDERED: morphine INJ 10 MG/ML 1ML (SYR OR VIAL) IVP PRN (19:00)
[2020-09-15 19:12] VITALS: BP 131/51
[2020-09-15] MEDS ORDERED: HYDROmorphone 2 MG/ML VIAL (DILAUDID) ONE (19:17)
[2020-09-15 19:20] VITALS: BP 104/53
[2020-09-15 19:30] VITALS: BP 105/55
[2020-09-15 19:40] VITALS: BP 105/53
[2020-09-15 19:50] VITALS: BP 115/57
[2020-09-15 20:00] VITALS: BP 120/62
[2020-09-15] MEDS: LACTATED RINGERS 1,000 ML IV SCH (22:13)
[2020-09-15] MEDS: ceFAZolin 2 GM IV Premixed 50 ML IV SCH (23:52)
[2020-09-16] VITALS (7 sets, daily range): BP systolic 114–153; BP diastolic 59–88
--- NOTE | 2020-09-16 00:10 | OPERATIVE REPORT ---
DATE OF SERVICE: PREOPERATIVE DIAGNOSIS: Incarcerated ventral incisional hernia. POSTOPERATIVE DIAGNOSES: 1. Strangulated ventral incisional hernia. 2. Ischemic bowel. 3. Umbilical hernia. 4. Morbid obesity. PROCEDURES: 1. Laparoscopic changed to open ventral herniorrhaphy with primary closure. 2. Partial small bowel resection. 3. Partial omentectomy. SURGEON: Nikos Chakraborty DO DIETETIC TECHNICIAN: Norberto Yin DO. ANESTHESIA: General endotracheal tube. SPECIMEN: 1. Portion of omentum. 2. Portion of small bowel. 3. Hernia sac. BLOOD LOSS: Approximately 100 mL. FLUIDS: Per anesthesia. POSTOPERATIVE CONDITION: Stable. INDICATION FOR PROCEDURE: The patient is a 49-year-old female who has been having abdominal pain. She came into the ER yesterday, diagnosed with incarcerated ventral incisional hernia. She actually left AMA but then came back today. White count was increased. Pain was increased, and she was taken for attempted laparoscopic ventral herniorrhaphy with possible mesh placement. FINDINGS: The patient had ischemic bowel, some portion of ischemic omentum and a large ventral hernia as well as an umbilical hernia seen. PROCEDURE NOTE: After informed consent was obtained, the patient was brought to the operating room, placed on the operating table in supine position. She was sterilely prepped and draped in normal fashion. Local lidocaine was used to infiltrate the skin in left upper quadrant. I made an incision with 11-blade, carried down through skin and subcutaneous tissue, then deepened down to subcutaneous tissue with Bovie electrocautery down to fascia. Fascia incised with electrocautery bluntly, spread the muscle apart, then went to the posterior fascia, spread the muscle and then through the peritoneum, placed 11 mm trocar port under direct visualization. Created pneumoperitoneum and then placed two more ports in normal fashion using local lidocaine, 11 blade for stab incision and Versed system, all done under direct visualization, one in left lower quadrant, one in the right mid abdomen just about at the height of the umbilicus. Upon entry, noted bowel stuck up in the ventral hernia as well as some omentum, able to push this, able to get this out and looked ischemic, took pictures. Elected to watch it for a little bit, took the omentum down that was stuck in the hernia sac as well with Bovie electrocautery getting this out of the hernia sac. I then looked at it, it was ischemic and elected to take this off through the partial omentectomy with a LigaSure, grasping below the necrotic area with LigaSure grasping clamping, coagulating and transecting in a stepwise fashion, taking it completely off. At this point, the small intestine still looked like it was not pinking up and the mesentery was ischemic at the top, felt like this may compromise blood flow and so I elected to do a partial small bowel resection, opened the midline right at the previous supraumbilical incision with 11 blade, carried down through the skin into subcutaneous tissue, then deepened down to subcutaneous tissue with Bovie electrocautery down to the hernia sac, opened, then cut out the hernia sac with Bovie electrocautery, opened the fascia a little bit more superiorly and inferiorly, able to then push the laparoscopic grasper on the omentum and on the small intestine, pushed the omentum through up into the opening and then pushed the small intestine up, grabbed the small intestine with a Kelton and pulled this through. Elected to do a resection, making an incision in the antimesenteric border of the small intestine with Bovie electrocautery, then placed a SUJIT-75 on one side in either limb. Clamped, held together for 30 seconds, then fired thereby transecting forming a [id number] functional end-to-end anastomosis, then used a second reload to clamp across the enteroenterotomy and clamped and fired, thereby transecting this, closing this and then came across the mesentery with the LigaSure. There was some bleeding, this was controlled with a 3-0 Vicryl pop-off suture, three sutures were needed. This was then pushed back in, then elected to close the fascia in a transverse direction; instead of vertical to do pantaloon type closure with #1 double stranded suture, running from the right side to the left side, tying to itself. Copiously irrigated this, then recreated pneumoperitoneum. looking at the small intestine, looked good. No bleeding. All looked pink and viable. At this point, then removed the two small 5 mm ports from direct visualization and then removed the left upper quadrant port, the pneumoperitoneum to escape. Closed the left upper quadrant incision with 0 Vicryl owehxo-si-estmy suture. Copiously irrigated all incisions with normal saline and closed this incision with donald. Area was cleaned and dried, dressings placed. The patient tolerated the procedure. She was transferred to recovery room in stable condition. Sponge, instrument and needle count correct at the end of the case. Job ID: [id number] DocumentID: [id number] Dictated Date: 09/15/2020 19:10:43 Rn Teacher Date: 09/16/2020 00:09:11 Dictated By: DO ANTONETTE GERMAN
[2020-09-16] MEDS: LACTATED RINGERS 1,000 ML IV SCH ×3 (02:26→12:04)
[2020-09-16] MEDS: morphine INJ 4 MG/ML 1 ML (VIAL/SYRINGE) IV PRN ×2 (04:05→08:00)
--- NOTE | 2020-09-16 07:00 | Anesthesia-General Post-Op ---
General Patient Condition Mental Status/LOC: Same as Preop Cardiovascular: Satisfactory Nausea/Vomiting: Absent Respiratory: Satisfactory Pain: Controlled Complications: Absent Post Op Complications Complications None Follow Up Care/Instructions Patient Instructions None needed. Anesthesia/Patient Condition Patient Condition Patient is doing well, no complaints, stable vital signs, no apparent adverse anesthesia problems. No complications reported per nursing. D/C home per [facility] [place] Criteria: RAPHAEL Staples CRNA Sep 16, 2020 07:00
[2020-09-16] MEDS: PANTOPRAZOLE 40 MG (PROTONIX) VIAL IVP SCH (07:59)
[2020-09-16] MEDS: ceFAZolin 2 GM IV Premixed 50 ML IV SCH (07:59)
--- NOTE | 2020-09-16 08:18 | Progress Note - Surgery ---
CLEVELAND CHRISTENSEN MED STUDENT 09/16/20 0818: Subjective Date Seen by a Provider: Sep 16, 2020 Time Seen by a Provider: 08:00 Subjective/Events-last exam Helen is a 49 yo female that was brought to 4th floor the evening of 09/15 after an emergency surgery to repair an incarcerated ventral hernia. Today upon entering the room the patient awake and alert sitting up in bed watching TV. She stated that she has had two episode of pain throughout the night rated at a 9/10 both times that required morphine. Pt has some wheezing on deep inhalation but has remained an O2 level of 97%. She was concerned about her appetite. Pt stated that she ordered a big breakfast this morning but was only able to eat a few bites before feeling full and wanted to know how long she will experience this symptom. She is getting up and walking to and from the restroom requiring assistance. She states no difficulty urinating but has yet to have a bowel movement. Upon palpation of the cervical region she mentioned mild right sided neck pain that hurts occasionally when rotating her head. Review of Systems Gastrointestinal: Abdominal Pain (currently relieved with morphine ) Musculoskeletal: neck pain (mild right sided cervical neck pain) Focused Exam Time of Focused Exam: 08:00 Respiratory: Chest Non Tender, Lungs Clear, No Accessory Muscle Use, No Respira tory Distress, Wheezing (with deep inhalation) Cardiovascular: Regular Rate, Rhythm, No Edema, No Gallop, No Murmur, Normal Peripheral Pulses Skin: normal color, warm/dry, other (incisions on abdomin had minimal blood on dressing and are still covered from surgery) Objective Exam Vital Signs Date Time Temp Pulse Resp B/P (MAP) Pulse Ox O2 Delivery O2 Flow Rate FiO2 09/16/20 08:00 36.2 09/16/20 04:37 36.5 76 18 123/81 (95) 97 Nasal Cannula 1.00 09/16/20 00:59 36.4 61 18 114/65 (81) 98 Nasal Cannula 1.00 09/15/20 21:50 Nasal Cannula 1.00 09/15/20 20:00 Nasal Cannula 2 09/15/20 20:00 36.6 20 120/62 (81) 95 Nasal Cannula 2 09/15/20 19:50 OxyMask 2 09/15/20 19:50 23 115/57 (76) 94 OxyMask 2 09/15/20 19:40 20 105/53 (70) 95 OxyMask 3 09/15/20 19:40 OxyMask 3 09/15/20 19:30 OxyMask 6 09/15/20 19:30 23 105/55 (72) 95 OxyMask 6 09/15/20 19:20 OxyMask 8 09/15/20 19:20 21 104/53 (70) 94 OxyMask 8 09/15/20 19:12 OxyMask 10 09/15/20 19:12 36.7 20 131/51 (77) 97 OxyMask 10 09/15/20 17:07 68 18 156/87 96 09/15/20 15:30 72 18 156/89 (111) 98 I & O 09/16/20 07:00 Intake Total 1760 ml Output Total 700 ml Balance 1060 ml Capillary Refill : Less Than 3 Seconds General Appearance: No Apparent Distress, WD/WN, Obese HEENT: PERRL/EOMI Neck: Full Range of Motion, Normal Inspection, Supple, Tender Lateral (right sided mild neck pain to rotation and palpation) Respiratory: Chest Non Tender, Lungs Clear, No Accessory Muscle Use, No Respiratory Distress, Wheezing (with deep inhalation) Cardiovascular: Regular Rate, Rhythm, No Edema, No Gallop, No Murmur, Normal Peripheral Pulses Gastrointestinal: normal bowel sounds, non tender (stated that she just recieved 2nd dose of morphine but generally there is pain with abdominal palpation ), soft, no organomegaly, no pulsatile mass Extremity: Normal Capillary Refill, Normal Inspection, Non Tender, No Calf Tenderness, No Pedal Edema Neurologic/Psychiatric: Alert, Oriented x3, No Motor/Sensory Deficits, Normal Mood/Affect Skin: Normal Color, Warm/Dry, Other (incisions on abdomin had minimal blood on dressing and are still covered from surgery) Lymphatic: No Adenopathy (axila, inguinal, or cervical) Results Lab Laboratory Tests 09/15/20 15:35: White Blood Count 21.2H, Red Blood Count 4.68, Hemoglobin 10.0L, Hematocrit 34L, Mean Corpuscular Volume 72L, Mean Corpuscular Hemoglobin 21L, Mean Corpuscular Hemoglobin Concent 30L, Red Cell Distribution Width 19.5H, Platelet Count 430H, Mean Platelet Volume 8.9L, Immature Granulocyte % (Auto) 1, Neutrophils (%) (Auto) 88H, Lymphocytes (%) (Auto) 7L, Monocytes (%) (Auto) 4, Eosinophils (%) (Auto) 0, Basophils (%) (Auto) 0, Neutrophils # (Auto) 18.6H, Lymphocytes # (Auto) 1.5, Monocytes # (Auto) 0.8, Eosinophils # (Auto) 0.0, Basophils # (Auto) 0.1, Immature Granulocyte # (Auto) 0.2H, Neutrophils % (Manual) 86, Lymphocytes % (Manual) 10, Monocytes % (Manual) 4, Anisocytosis SLIGHT, Sodium Level 135, Potassium Level 3.9, Chloride Level 105, Carbon Dioxide Level 21, Anion Gap 9, Blood Urea Nitrogen 11, Creatinine 0.95, Estimat Glomerular Filtration Rate > 60, BUN/Creatinine Ratio 12, Glucose Level 123H, Calcium Level 9.0 09/15/20 17:40: Assessment/Plan Assessment/Plan Admission Diagonsis incarcerated ventral/ incisional hernia Assessment/Plan Incarcerated Incisional/Ventral hernia Morbid Obesity Psychiatric problems HTN Pt has an incarcerated incisional/ventral hernia and I am concerned it could be strangulated. Her WBC was 16.9 yesterday and is 21.2K today. An attempt to reduce it was made by the ER physician, which was unsuccessful. I spoke with pt and explained that I believe she needs to go to surgery to look/reduce/repair or resect this area. She asked about hernia repair and I told her we could do that if the bowel is not . Plan for Laparoscopic Ventral Herniarraphy with possible mesh placement, possible open, possible bowel resection. I went over risks and complications with the pt; including but not limited to pain, bleeding, infection, scar, damage to bowel and need for further procedure. I also talked to her about the fact that her BMI will increase risk of mesh failure 9-15% (if we can even do mesh) and on top of that smoking will increase another 15%; cumulative would be up to 30%. She will get IV fluids, IV ABX, pain meds, anti-emetics as needed and will be admitted at least overnight. She will be able to go home when her pain is controlled and she is tolerating oral diet. All questions answered to her satisfaction. continue pain medication PT/OT start incentive spirometer NIKOS ERAZO DO 09/16/20 1125: Subjective Time Seen by a Provider: 11:09 Subjective/Events-last exam Pt seen and examined, states she still has moderated pain and some nausea. Not eating much because of the nausea. Review of Systems General: No Chills, No Night Sweats Pulmonary: No Dyspnea, No Cough Cardiovascular: No: Chest Pain, Palpitations Gastrointestinal: Abdominal Pain (currently relieved with morphine ) Objective Exam General Appearance: No Apparent Distress, WD/WN, Obese Respiratory: Lungs Clear, No Accessory Muscle Use, No Respiratory Distress Cardiovascular: Regular Rate, Rhythm, No Murmur Gastrointestinal: soft, tenderness (mostly at midline incision), other (incisions are c/d/i) Assessment/Plan Assessment/Plan Assessment/Plan S/P SBR and repair Strangulated Incisional/Ventral hernia Pt encouraged to use IS and ambulate, diet as tolerated. Will decrease IV fluids and start PO pain meds, plan to keep her hopefully only one more day. Supervisory-Addendum Brief Verification & Attestation Participated in pt care: history, MDM, physical Personally performed: exam, history, MDM Care discussed with: Medical Student Procedures: n/a Verification and Attestation of Medical Student E/M Service A medical student performed and documented this service. I then reviewed and verified all information documented by the medical student and made modifications to such information, when appropriate. I personally performed a ph ysical exam, medical decision making and then discussed any differences between the notes and made revisions as necessary to create one note. Nikos Erazo , 09/16/20 , 11:25 [facility] MED STUDENT Sep 16, 2020 08:18 NIKOS ERAZO DO Sep 16, 2020 11:25
[2020-09-16] MEDS ORDERED: APAP 325 MG/10.15 ML LIQ (TYLENOL) UDC PO PRN (11:45)
[2020-09-16] MEDS: HYDROcodone/APAP 5 MG/325 MG (LORTAB) TAB PO PRN ×2 (12:15→21:09)
--- NOTE | 2020-09-16 12:56 | NUR ---
CM/SS: Visited with pt as per plan for discharge related to medications and transportation. Plan: Pt is from home and will return there at time of discharge - pt lives with her significant other and adult son. Summary: Pt reports she is feeling better after her surgery. Pt is asked about her medications and she reports she does take her psych meds and is current in doing so. She is asked if she will be able to take them as prescribed at time of discharge, along with pain or other medications. Pt reports she will be able to do so. Pt's nurse had mentioned concern about her mediations earlier to this worker. Pt feels as if she will take her meds as prescribed at time of discharge. Pt verbalizes understanding. Pt reports she may need a ride at the time of discharge. This worker will follow up. Pt plans to likely discharge on tomorrow.
[2020-09-16] MEDS ORDERED: QUET100T33 PO (13:27)
[2020-09-16] MEDS ORDERED: ARIP400S3 IM (13:27)
[2020-09-16] MEDS ORDERED: FLUO20CA46 PO (13:27)
--- NOTE | 2020-09-16 13:27 | NUR ---
SPOKE WITH THE PT AND WENT THRU THE EXT MED HISTORY TO COMPLETE THE MED REC PT WAS ABLE TO TELL ME ALL HER MEDICATIONS AND SAYS SHE TAKES EVERYTHING HS PT DENIES TAKING ANY OTC MEDICATION
[2020-09-16] MEDS: ONDANSETRON 4 MG/2 ML (SDV) Z0FRAN IVP PRN (18:31)
[2020-09-16] MEDS ORDERED: ENOXAPARIN 40 MG/0.4 ML (LOVENOX) SYR SC SCH (19:00)
[2020-09-16] MEDS ORDERED: QUEtiapine 100 MG (SEROquel) TAB IMMEDIATE RELEASE PO SCH (21:00)
[2020-09-16] MEDS ORDERED: FLUoxetine HCL 20 MG (PROzac) CAP PO SCH (21:00)
[2020-09-16] MEDS ORDERED: lisINopril 10 MG (PRINIVIL) TABLET PO SCH (21:00)
[2020-09-17] MEDS: HYDROcodone/APAP 5 MG/325 MG (LORTAB) TAB PO PRN ×2 (00:47→08:24)
[2020-09-17] MEDS: ONDANSETRON 4 MG/2 ML (SDV) Z0FRAN IVP PRN (00:47)
[2020-09-17] MEDS: LACTATED RINGERS 1,000 ML IV SCH (00:48)
[2020-09-17 04:00] VITALS: BP 107/59
--- NOTE | 2020-09-17 07:06 | Progress Note - Surgery ---
SHANTI ANAYA,MED STUDENT 09/17/20 0706: Subjective Date Seen by a Provider: Sep 17, 2020 Time Seen by a Provider: 06:15 Subjective/Events-last exam Pt seen and examined this morning. She states that she is having less pain than yesterday, and the oral pain medications are controlling it well. She ambulated more yesterday and has been trying to use her IS hourly. Feels like her wheezing has improved. Denies BM but nurse states she has been passing gas. She also notes more of an appetite this morning. Review of Systems General: No Fatigue; Appetite HEENT: No Head Aches Pulmonary: No Dyspnea, No Cough; Other (wheeze, improving) Cardiovascular: No: Chest Pain, Edema Gastrointestinal: Abdominal Pain (incisional, improved); No: Nausea, Vomiting Neurological: No: Weakness, Numbness, Confusion Focused Exam Time of Focused Exam: 08:00 Objective Exam Vital Signs Date Time Temp Pulse Resp B/P (MAP) Pulse Ox O2 Delivery O2 Flow Rate FiO2 09/17/20 04:00 36.5 95 17 107/59 (75) 92 Room Air 09/16/20 23:49 36.6 87 18 134/88 (103) 93 Room Air 09/16/20 20:00 Nasal Cannula 1.00 09/16/20 19:00 37.0 78 18 119/59 (79) 92 Room Air 09/16/20 16:07 37.3 91 20 138/88 (105) 92 Room Air 09/16/20 12:00 36.8 67 20 153/85 (107) 93 Room Air 09/16/20 08:00 97 Room Air 1.00 09/16/20 08:00 36.2 09/16/20 07:45 36.8 72 20 137/88 (104) 96 Room Air I & O 09/17/20 07:00 Intake Total 1242 ml Output Total 1775 ml Balance -533 ml Capillary Refill : Less Than 3 SecondsLess Than 3 Seconds General Appearance: No Apparent Distress, WD/WN, Obese HEENT: PERRL/EOMI Neck: Tender Lateral (right sided mild neck pain to rotation and palpation) Respiratory: No Accessory Muscle Use, No Respiratory Distress, Wheezing (worse in RLL, improved from yestrday) Cardiovascular: Regular Rate, Rhythm, No Murmur Gastrointestinal: soft, tenderness (incisional), other Extremity: Non Tender, No Calf Tenderness, No Pedal Edema Neurologic/Psychiatric: Alert, Oriented x3, No Motor/Sensory Deficits, Normal Mood/Affect Skin: Normal Color, Warm/Dry, Other (incisions c/d/i. no surrounding erythema) Assessment/Plan Assessment/Plan Assessment/Plan Strangulated Ventral Hernia s/p SBR and laparoscopic turned open herniorrhaphy, POD2 Morbid obesity HTN Continue ambulation and IS Advance diet as tolerated PO pain medications Hopefully DC today NIKOS CHAKRABORTY DO 09/17/20 1117: Subjective Time Seen by a Provider: 11:11 Subjective/Events-last exam PT seen and examined, states pain is 3 out of 10. Thinks she is ready to go home. Review of Systems General: No Fatigue Pulmonary: No Dyspnea, No Cough Cardiovascular: No: Chest Pain Gastrointestinal: Abdominal Pain (incisional, improved); No: Nausea, Vomiting Objective Exam General Appearance: No Apparent Distress, WD/WN, Obese Respiratory: No Accessory Muscle Use, No Respiratory Distress, Wheezing (worse in RLL, improved from yestrday) Cardiovascular: Regular Rate, Rhythm, No Murmur Gastrointestinal: soft, tenderness (incisional), other (incisions are c/d/i) Assessment/Plan Assessment/Plan Assessment/Plan S/P SBR and Ventral hernia repair D/C IV and d/c home. Continue ambulation and IS at home. Supervisory-Addendum Brief Verification & Attestation Participated in pt care: history, MDM, physical Personally performed: exam, history, MDM Care discussed with: Medical Student Procedures: n/a Verification and Attestation of Medical Student E/M Service A medical student performed and documented this service. I then reviewed and verified all information documented by the medical student and made modifications to such information, when appropriate. I personally performed a physical exam, medical decision making and then discussed any differences between the notes and made revisions as necessary to create one note. Nikos Chakraborty , 09/17/20 , 11:17 SHANTI ANAYA,MED STUDENT Sep 17, 2020 07:06 NIKOS CHAKRABORTY DO Sep 17, 2020 11:17
[2020-09-17 08:00] VITALS: BP 113/56
[2020-09-17] MEDS: PANTOPRAZOLE 40 MG (PROTONIX) VIAL IVP SCH (08:24)
--- NOTE | 2020-09-17 10:34 | Physician Query Clarification ---
PQ-Further Specificity Admission/Discharge Admission Date: Sep 15, 2020 at 18:48 Discharge Date: Dr. Chakraborty, The medical record reflects the following clinical scenario: History/Risk Factors: incarcerated ventral incisional hernia Clinical Findings: ischemic bowel Treatment: excision portion of the small intestine Question: Can you further specify the acuity of the ischemic bowel per the clinical indicators above? Please document a response in the Progress Notes or Discharge Summary. 1. acute ischemia of the small intestine 2. chronic ischemia of the small intestine 3. Other, with explanation of the clinical findings. 4. Clinically undetermined, no explanation for the clinical findings. PHYSICIAN RESPONSE Can you specify per above: 1 Please remember a lack of response to the above will prompt a phone page by CDI/Coding staff. In responding to this query, please exercise your independent professional judgment. The purpose of this communication is to more accurately reflect the complexity of your patients condition. The fact that a question is asked does not imply that any particular answer is desired or expected. Thank you for your timely response to this clarification. Requestors name: Jackie [email or web address] THIS PHYSICIAN QUERY FORM IS A PERMANENT PART OF THE MEDICAL RECORD JACKIE BAUM Sep 17, 2020 10:34 BRIANNA CHAKRABORTY DO Sep 17, 2020 11:17
--- NOTE | 2020-09-17 10:40 | NUR ---
CM/SS: Visited with pt as per plan for discharge related to transportation home. Plan: Pt is from home where she lives with her significant other and adult son and will return there when deemed appropriate. Summary: Pt reports having a good night and denies any major pain at this time. Pt is talking to her significant other on the phone. Pt reports she should be able to go home today. She was able to eat some breakfast and overall is doing ok. Pt still needs to the see the doctor on today. Pt reports she is not sure on her ride home. This worker checks with pt's sister that is a staff here at [facility] [employer] [facility] She calls pt's sister and it is determined that if pt leaves before 3pm her sister Jackie can pick her up if it is after 3pm then her sister that works here will be able to take her home. Pt is informed of the plan related to her transportation home. She is ok with that.
[2020-09-17] MEDS ORDERED: ACHD5005 PO (11:13)
--- NOTE | 2020-09-17 11:14 | Discharge Inst-Surgical ---
Discharge Inst-Surgical Depart Medication/Instructions New, Converted or Re-Newed RX: RX Given to Pt/Family Patient Instructions Follow up Appt: Make appointment for 1 week. [phone] Instructions: No lifting greater than 20 pounds. No strenuous activity. May shower in 24 hours, no tub bath or soaking. Use incentive spirometer at home as directed. No Smoking Skin/Wound Care: May remove bandages in am. You need to leave the Dermabond on incision it will fall off on it's own. Symptoms to Report: Appetite Changes, Extremity Discoloration, Numbness/Tingling, Swelling Increased, Bleeding Excessive, Eyesight Changes, Pain Increased, Urine Color Change, Constipation(Persistent), Fever over 101 degree F, Pain/Pressure in chest, Urinating Difficulty, Cough Up/Vomit Blood, Heart Beat Irreg/Pounding, Pain/Pressure in jaw, Cramps in feet or legs, Lightheadedness, Pain/Pressure in shoulder, Diarrhea(Persistent), Memory Changes Suddenly, Questions/Concerns, Weight gain consecutive days, Dizziness/Fainting, Nausea/Vomiting, Shortness of Breath, Weight gain over 2 pounds If questions or concerns contact your physician Or seek help at emergency department. Activity Activity as Tolerated: Yes Driving Instructions: No Driving/Refer to Dr. Schulz Discharge Diet: No Restrictions Diet After 24 Hours: Clear Liquid if Nauseous If Any Problems/Questions/Issu: Contact Your Physician, Go to Emergency Room Skin/Wound Care Infection Signs and Symptoms: Increased Redness, Foul Odor of Wound, Increased Drainage, Skin Itchy or Has a Rash, Increased Swelling, Temperature Above 101 F Stitches/Kelechi/Dermabond Dis: Care of BRIANNA Davis DO Sep 17, 2020 11:14
[2020-09-17 11:50] VITALS: BP 113/56
--- NOTE | 2020-09-17 13:26 | NUR ---
RD ASSESSMENT PMHx: HTN; schizophrenia; PT INTERACTION: Pt was awake and pleasant during nutrition assessment. Pt states current appetite is "getting better." Note avg PO intake 25-50% x1d, per chart review. Pt states following a regular diet at home, and has no issues with chewing/swallowing food. Pt states recent issues with nausea, vomiting, and constipation, and that her last BM was 09/08. Note pt not currently on bowel regimen per chart review. Note episode of emesis on 09/16, per chart review. Pt states recent 6# wt loss, but was unsure of timeframe. Note unable to determine recent wt hx, per chart review. Est. kcal needs: 6347-3095 kcal | 15-18 kcal/kg Est. Pro needs: 81-101 g Pro | 0.8-1.0 g Pro/kg PES STATEMENT: Inadequate oral intake (NI-2.1) related to loss of appetite, nausea, vomiting, and constipation, as evidenced by pt interview, chart review, and avg PO intake 25-50% x1d. INTERVENTION: Continue with current diet order of Regular diet. Pt may benefit from nutrition supplementation if PO intake remains low. Pt may benefit from bowel regimen if constipation persists. Encouraged pt to eat when able. Will continue to follow and reassess as pt needs, intake, and status change. Fernanda LEPE MS RD LD [phone] cell
== END 2020-09-17 11:50 | disposition home or self-care (01) | DRG 329 ==
LOC: EDUNIT# 15:27 → ER 15:28 → SDC 16:47 → 4TH 18:48
PROVIDERS: ADMIT Surgery; ATTEND Surgery
PROC: 0DB80ZZ Excision of Small Intestine, Open Approach (ICD-10-PCS; 2020-09-15)
PROC: 0DBU0ZZ Excision of Omentum, Open Approach (ICD-10-PCS; 2020-09-15)
PROC: 0WQF0ZZ Repair Abdominal Wall, Open Approach (ICD-10-PCS; principal; 2020-09-15 17:34)
DX: K43.0 Incisional hernia with obstruction, without gangrene (principal); K55.019 Acute (reversible) ischemia of small intestine, extent unspecified; N39.0 Urinary tract infection, site not specified; Z68.41 Body mass index [BMI] 40.0-44.9, adult; Z20.822 Contact with and (suspected) exposure to COVID-19; E66.01 Morbid (severe) obesity due to excess calories; Z53.31 Laparoscopic surgical procedure converted to open procedure; G89.29 Other chronic pain; M54.9 Dorsalgia, unspecified; F41.9 Anxiety disorder, unspecified; F20.9 Schizophrenia, unspecified; F32.9 Major depressive disorder, single episode, unspecified; I10 Essential (primary) hypertension
CPT/HCPCS: 36415; 80048; 85007; 85027; 87635; 88307

== ENCOUNTER 2020-11-26 21:06 | Observation (INO) | payer MEDICAID ==
[~2020-11-26] VITALS: Ht 157 cm; Wt 105.6 kg
[~2020-11-26 21:06] MED LIST changes: +ACHD5005 PO; +ARIP400S3 IM; -LISI-556 PO; +LISI-729 PO; -LISI10TA2 PO; +LISI10TA25 PO; +QUET100T33 PO
[2020-11-26] MEDS ORDERED: LACTATED RINGERS 1,000 ML IV ONE (21:15)
[2020-11-26 21:30] LABS: BASOPHILS # (AUTO) 0.1 10^3/uL (0.0-0.1); BASOPHILS % (AUTO) 0 % (0-10); EOSINOPHILS # (AUTO) 0.3 10^3/uL (0.0-0.3); EOSINOPHILS % (AUTO) 2 % (0-10); HEMATOCRIT 30 % (35-52); HEMOGLOBIN 8.4 g/dL (11.5-16.0); LYMPHOCYTES # (AUTO) 2.8 10^3/uL (1.0-4.0); LYMPHOCYTES % (AUTO) 25 % (12-44); MEAN CORPUSCULAR HEMOGLOBIN 20 pg (25-34); MEAN CORPUSCULAR HGB CONC 28 g/dL (32-36); MEAN CORPUSCULAR VOLUME 73 fL (80-99); MEAN PLATELET VOLUME 8.5 fL (9.0-12.2); MONOCYTES # (AUTO) 0.6 10^3/uL (0.0-1.0); MONOCYTES % (AUTO) 6 % (0-12); NEUTROPHILS # (AUTO) 7.5 10^3/uL (1.8-7.8); NEUTROPHILS % (AUTO) 66 % (42-75); PLATELET COUNT 471 10^3/uL (130-400); WHITE BLOOD COUNT 11.3 10^3/uL (4.3-11.0)
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
[2020-11-26 21:52] LABS: ALANINE AMINOTRANSFERASE 17 U/L (0-55); ALBUMIN 3.8 GM/DL (3.2-4.5); ALKALINE PHOSPHATASE 133 U/L (40-136); BILIRUBIN,TOTAL 0.3 MG/DL (0.1-1.0); BUN/CREATININE RATIO 12; CALCIUM 8.6 MG/DL (8.5-10.1); CARBON DIOXIDE 20 MMOL/L (21-32); CHLORIDE 108 MMOL/L (98-107); CREATININE SERUM 0.86 MG/DL (0.60-1.30); GFR ESTIMATED > 60; GLUCOSE 159 MG/DL (70-105); POTASSIUM 2.9 MMOL/L (3.6-5.0); SALICYLATE < 5.0 MG/DL (5.0-20.0); SODIUM 140 MMOL/L (135-145); TOTAL PROTEIN 7.4 GM/DL (6.4-8.2)
[2020-11-26 21:57] LABS: BILIRUBIN,URINE NEGATIVE (NEGATIVE); CLARITY,URINE SL CLOUDY; COLOR,URINE YELLOW; GLUCOSE, URINE (UA) NEGATIVE (NEGATIVE); KETONES,URINE NEGATIVE (NEGATIVE); LEUKOCYTE ESTERASE ,URINE NEGATIVE (NEGATIVE); NITRITE,URINE NEGATIVE (NEGATIVE); PH,URINE 6.5 (5-9); PROTEIN,URINE TRACE (NEGATIVE)
[2020-11-26 22:00] LABS: ACETAMINOPHEN < 10 UG/ML (10-30)
[2020-11-26 22:05] LABS: BACTERIA,URINE TRACE /HPF; CALCIUM OXALATE CRYSTALS,UR FEW /LPF; RBC,URINE 50-100 /HPF; WBC,URINE RARE /HPF
[2020-11-26 22:08] LABS: AMPHETAMINE SCREEN, URINE NEGATIVE (NEGATIVE); BARBITURATE SCREEN URINE NEGATIVE (NEGATIVE); BENZODIAZEPINES SCREEN URINE NEGATIVE (NEGATIVE); CANNABINOID SCREEN, URINE NEGATIVE (NEGATIVE); COCAINE SCREEN URINE NEGATIVE (NEGATIVE); METHADONE STAT NEGATIVE (NEGATIVE); METHAMPHETAMINE SCREEN URINE S NEGATIVE (NEGATIVE); OPIATE SCREEN URINE NEGATIVE (NEGATIVE); OXYCODONE STAT NEGATIVE (NEGATIVE); PROPOXYPHENE STAT NEGATIVE (NEGATIVE); TRICYCLIC ANTIDEPRESSANTS SCRE POSITIVE (NEGATIVE)
[2020-11-26 22:12] LABS: TSH (THYROID ANALYZER) 1.87 UIU/ML (0.35-4.94)
[2020-11-26] MEDS ORDERED: 1/2 NS IV SOLUTION 1,000 ML IV ONE (23:24)
[2020-11-26] MEDS ORDERED: POTASSIUM CL 10MEQ/50ML IVPB 200 ML IV ONE (23:32)
[2020-11-26] MEDS ORDERED: ONDANSETRON 4 MG/2 ML (SDV) Z0FRAN IVP PRN (23:45)
[2020-11-26] MEDS ORDERED: ACETAMINOPHEN 500 MG TAB (TYLENOL) PO PRN (23:45)
[2020-11-27] MEDS: NS IV 1000 ML 1,000 ML IV SCH ×2 (00:12→10:18)
[2020-11-27] MEDS: POTASSIUM CL 10MEQ/50ML IVPB 50 ML IV SCH ×4 (00:12→03:32)
[2020-11-27 04:22] LABS: ALBUMIN 3.2 GM/DL (3.2-4.5); CHLORIDE 113 MMOL/L (98-107); POTASSIUM 3.9 MMOL/L (3.6-5.0); SODIUM 141 MMOL/L (135-145)
[2020-11-27 04:24] LABS: GLUCOSE 128 MG/DL (70-105); TOTAL PROTEIN 6.2 GM/DL (6.4-8.2)
[2020-11-27 04:25] LABS: CARBON DIOXIDE 19 MMOL/L (21-32)
[2020-11-27 04:26] LABS: BILIRUBIN,TOTAL 0.2 MG/DL (0.1-1.0)
[2020-11-27 04:28] LABS: ALKALINE PHOSPHATASE 114 U/L (40-136); CREATININE SERUM 0.79 MG/DL (0.60-1.30); GFR ESTIMATED > 60; PHOSPHORUS 2.5 MG/DL (2.3-4.7)
[2020-11-27 04:29] LABS: BUN/CREATININE RATIO 13
[2020-11-27 04:31] LABS: ALANINE AMINOTRANSFERASE 15 U/L (0-55); MAGNESIUM 1.9 MG/DL (1.6-2.4)
--- NOTE | 2020-11-27 05:00 | Pulmonary Consultation ---
History of Present Illness History of Present Illness Date Seen by Provider: Nov 27, 2020 Time Seen by Provider: 04:56 Date of Admission Allergies and Home Medications Allergies Coded Allergies: Penicillins (Verified Allergy, Mild, Pt has received Ceftriaxone in the past w/o issue, 03/20/19) Home Medications Aripiprazole 400 Mg Suser.syr, 400 MG IM MONTHLY, (Reported) Fluoxetine HCl 20 Mg Capsule, 20 MG PO HS, (Reported) Hydrocodone/Acetaminophen 1 Each Tablet, 1 TAB PO Q4H PRN for PAIN-MODERATE (5- 7) Prescribed by: BRIANNA ERAZO on 09/17/20 1113 Lisinopril 10 Mg Tablet, 10 MG PO HS, (Reported) Quetiapine Fumarate 100 Mg Tablet, 100 MG PO HS, (Reported) Past Lhhqutq-Ewjkhp-Lsyrvi Hx Past Med/Social Hx: Reviewed and Corrections made Patient Social History Alcohol Use: Regular Use Drug of Choice: THC, METH, "CRACK", "ICE" Smoking Status: Current Everyday Smoker Type Used: Cigarettes 2nd Hand Smoke Exposure: Yes Recent Infectious Disease Expo: No Recent Hopitalizations: No Have you traveled recently?: No Substance type: Methamphetamine, Marijuana Immunizations Up To Date Tetanus Booster (TDap): Unknown PED Vaccines UTD: Yes Date of Influenza Vaccine: Jun 11, 2015 Seasonal Allergies Seasonal Allergies: No Past Medical History Surgeries: Yes (SEE BELOW) Abdominal, Gallbladder, Renal, Tubal Ligation Respiratory: No Currently Using CPAP: No Currently Using BIPAP: No Cardiac: Yes Hypertension Neurological: No Reproductive Disorders: No Female 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 Psychiatric Problems SOCIAL HISTORY: -ETOH--HX OF DAILY USE--BEER + WINE COOLERS -DRUGS--MARIJUANA, METH--SMOKES IT, ALSO "ICE", "CRACK" -SMOKES 1-2 PPD PAST SURGICAL HISTORY: -09/15/20--VENTRAL HERNIA WITH BOWEL OBSTRUCTION--HERNIA REPAIR WITH PARTIAL SMALL BOWEL RESECTION AND PARTIAL OMENTECTOMY -CHOLECYSTECTOMY 04/2018 -BILATERAL TUBAL LIGATION -MULTIPLE PROCEDURES FOR KIDNEY STONES/LITHOTRIPSIES Review of Systems Time Seen by Provider: 04:56 Sepsis Event Evaluation Height, Weight, BMI Height: 5'1.00" Weight: 225lbs. 0.0oz. 102.306790ww; 42.19 BMI Method:Stated Exam Exam Vital Signs Date Time Temp Pulse Resp B/P (MAP) Pulse Ox O2 Delivery O2 Flow Rate FiO2 11/27/20 04:00 95 Room Air 11/27/20 01:00 90 11/27/20 00:00 98 Room Air 11/26/20 23:20 36.6 99 Room Air 11/26/20 23:17 90 11/26/20 22:24 36.0 106 16 120/72 98 Room Air 11/26/20 21:06 36.0 106 16 120/72 (88) 98 Room Air I & O 11/27/20 07:00 Intake Total 1350 ml Balance 1350 ml Height & Weight Height: 5'1.00" Weight: 225lbs. 0.0oz. 102.176152im; 42.19 BMI Method:Stated Capillary Refill: Less Than 3 Seconds Gastrointestinal: non tender, soft Results Lab Laboratory Tests 11/26/20 21:17 11/27/20 03:25 Assessment/Plan Assessment/Plan Intentional OD on Seroquel, Paxil, Lisinopril -Poison control following -Sitter at bedside Pt admitted to methamphetamin and Marijuana while in ED No recent alcohol use Tobacco dependance -Education MARTA BAILON DO Nov 27, 2020 05:00
[2020-11-27 05:43] LABS: BASOPHILS # (AUTO) 0.1 10^3/uL (0.0-0.1); BASOPHILS % (AUTO) 1 % (0-10); EOSINOPHILS # (AUTO) 0.3 10^3/uL (0.0-0.3); EOSINOPHILS % (AUTO) 3 % (0-10); HEMATOCRIT 27 % (35-52); HEMOGLOBIN 7.5 g/dL (11.5-16.0); LYMPHOCYTES # (AUTO) 1.9 10^3/uL (1.0-4.0); LYMPHOCYTES % (AUTO) 19 % (12-44); MEAN CORPUSCULAR HEMOGLOBIN 20 pg (25-34); MEAN CORPUSCULAR HGB CONC 28 g/dL (32-36); MEAN CORPUSCULAR VOLUME 73 fL (80-99); MEAN PLATELET VOLUME 9.1 fL (9.0-12.2); MONOCYTES # (AUTO) 0.6 10^3/uL (0.0-1.0); MONOCYTES % (AUTO) 6 % (0-12); NEUTROPHILS # (AUTO) 7.4 10^3/uL (1.8-7.8); NEUTROPHILS % (AUTO) 72 % (42-75); PLATELET COUNT 365 10^3/uL (130-400); WHITE BLOOD COUNT 10.3 10^3/uL (4.3-11.0)
[2020-11-27] MEDS ORDERED: FLU QUADRIvalent (3YOA+) 60 mcg/0.5 ml 2020-21 (AFLURIA) IM ONE (06:45)
[2020-11-27] MEDS: FAMOTIDINE 20 MG (PEPCID) TABLET PO SCH ×2 (08:25→20:11)
[2020-11-27] MEDS: MULTIVIT W/MINERALS TAB (THERAGRAN M) PO SCH (08:25)
--- NOTE | 2020-11-27 10:56 | Short Stay Summary-Hospitalist ---
History of Present Illness HPI/Chief Complaint CC: Purposeful OD HPI: This is a patient of [facility] who called EMS after purposefully OD on meds she had saved at home. Seroquel and Paxil and Lisinopril 6 of each were taken. Patient has a h/o anemia iron def and hgb 8.4 decreased to 7.5 so iron infusion given before DC and iron study ordered. Patient is currently ok with going to [facility] as arranged by SW. BP remained stable all night. Sitter at bedside. Source: patient, RN/MD, old records Date Seen 11/27/20 Time Seen by a Provider: 10:45 Attending Physician Shelly Calhoun DO [facility] Referring Physician Date of Admission Nov 26, 2020 at 21:40 Home Medications & Allergies Home Medications Reviewed patient Home Medication Reconciliation performed by pharmacy medication reconciliations quality technician fiberglass and/or nursing. Patients Allergies have been reviewed. Allergies Allergies Coded Allergies Penicillins (Verified Allergy, Mild, Pt has received Ceftriaxone in the past w/o issue, 03/20/19) Past Iwsleae-Ocbpoy-Zupdnk Hx Past Med/Social Hx: Reviewed Nursing Past Med/Soc Hx, Reviewed and Corrections made Patient Social History Marrital Status: single Employed/Student: unemployed Alcohol Use: Regular Use Recreational Drug Use: Yes (MARIJUANA, COCAINE, AND METHAMPHETAMINES. ) Drug of Choice: THC, METH, "CRACK", "ICE" Smoking Status: Current Everyday Smoker Type Used: Cigarettes 2nd Hand Smoke Exposure: Yes Recent Foreign Travel: No Contact w/other who traveled: No Recent Hopitalizations: No Recent Infectious Disease Expo: No Immunizations Up To Date Tetanus Booster (TDap): Unknown Pediatric: Yes Date of Influenza Vaccine: Jun 11, 2015 Seasonal Allergies Seasonal Allergies: No Past Medical History Surgeries: Abdominal, Gallbladder, Renal, Tubal Ligation Currently Using CPAP: No Currently Using BIPAP: No Cardiac: Hypertension Reproductive: No Sexually Transmitted Disease: No HIV/AIDS: No Female Reproductive Disorders: Denies Tubal Ligation Genitourinary: Kidney Stones Gastrointestinal: Abdominal Hernia, Obstructive Bowel, Gall Bladder Disease Musculoskeletal: Chronic Back Pain Loss of Vision: Denies Hearing Impairment: Denies Psychosocial: Anxiety, Suicide Attempts, Schizophrenia, Depression History of Blood Disorders: Yes (ANEMIA) Adverse Reaction to Blood Lind: No (N/A) Family History Patient reports no known family medical history. Psychiatric Problems SOCIAL HISTORY: -ETOH--HX OF DAILY USE--BEER + WINE COOLERS -DRUGS--MARIJUANA, METH--SMOKES IT, ALSO "ICE", "CRACK" -SMOKES 1-2 PPD PAST SURGICAL HISTORY: -09/15/20--VENTRAL HERNIA WITH BOWEL OBSTRUCTION--HERNIA REPAIR WITH PARTIAL SMALL BOWEL RESECTION AND PARTIAL OMENTECTOMY -CHOLECYSTECTOMY 04/2018 -BILATERAL TUBAL LIGATION -MULTIPLE PROCEDURES FOR KIDNEY STONES/LITHOTRIPSIES Review of Systems Constitutional: see HPI, malaise, weakness Psychiatric/Neurological: Depressed, Emotional Problems All Other Systems Reviewed Negative Unless Noted: Yes Physical Exam Physical Exam Vital Signs Vital Signs - First Documented 11/26/20 21:06 Temp 36.0 Pulse 106 Resp 16 B/P (MAP) 120/72 (88) Pulse Ox 98 O2 Delivery Room Air Capillary Refill : Less Than 3 Seconds Height, Weight, BMI Height: 5'1.00" Weight: 225lbs. 0.0oz. 102.526316md; 42.19 BMI Method:Stated General Appearance: No Apparent Distress, WD/WN, Obese Eyes: Bilateral Eye Normal Inspection, Bilateral Eye PERRL HEENT: PERRL/EOMI, TMs Normal, Normal ENT Inspection, Pharynx Normal Neck: Full Range of Motion, Normal Inspection, Non Tender, Supple, Carotid Bruit Respiratory: Chest Non Tender, Lungs Clear, Normal Breath Sounds, No Accessory Muscle Use, No Respiratory Distress Cardiovascular: Regular Rate, Rhythm, No Edema, No Gallop, No JVD, No Murmur, Normal Peripheral Pulses Gastrointestinal: Normal Bowel Sounds, No Organomegaly, No Pulsatile Mass, Non Tender, Soft Back: Normal Inspection, No CVA Tenderness, No Vertebral Tenderness Extremity: Normal Capillary Refill, Normal Inspection, Normal Range of Motion, Non Tender, No Calf Tenderness, No Pedal Edema Neurologic/Psychiatric: Alert, Oriented x3, No Motor/Sensory Deficits, Normal Mood/Affect Skin: Normal Color, Warm/Dry Lymphatic: No Adenopathy Results Results/Procedures Labs Laboratory Tests 11/26/20 21:17 11/27/20 03:25 11/27/20 05:33 Patient resulted labs reviewed. Short Stay Diagnosis Discharge Diagnosis-Short Stay Admission Diagnosis Purposeful OD suicide attempt Anemia iron def HTN Final Discharge Diagnosis Purposeful OD suicide attempt Anemia iron def HTN Conclusion Plan DC to [facility] PsychSHELLY PINO DO Nov 27, 2020 10:56
[2020-11-27] MEDS ORDERED: IRON SUCROSE 200 MG/10 ML (VENOFER) VIAL IV NR (11:00)
[2020-11-27 13:15] LABS: RETICULOCYTE % 1.7 % (0.50-2.40)
[2020-11-27 15:36] VITALS: BP 134/82
[2020-11-27 15:51] VITALS: BP 125/72
--- NOTE | 2020-11-27 17:11 | Oncology Consultation ---
Visit Information Visit Information Date of Admission Nov 26, 2020 at 21:40 Attending Physician Shelly Calhoun DO Admitting Physician [facility] Chief Complaint Anemia Interval History Ms. Mauro is a 50 year old female admitted to ICU for drug over dose, suicide risk. She was also found to have anemia Hb 8.5 on admission microcytic RBC and then drop to 7.5 since the admission. We are called to help. I consulted the patient on: 11/27/20 17:06 Time Seen by Provider: 17:06 Review of Systems Constitutional: see HPI Health Status Allergies Coded Allergies: Penicillins (Verified Allergy, Mild, Pt has received Ceftriaxone in the past w/o issue, 03/20/19) Home Medications Aripiprazole (Abilify Maintena) 400 Mg Suser.syr, 400 MG IM MONTHLY, (Reported) Fluoxetine HCl (Fluoxetine HCl) 20 Mg Capsule, 20 MG PO HS, (Reported) Lisinopril (Lisinopril) 10 Mg Tablet, 10 MG PO HS, (Reported) Quetiapine Fumarate (Quetiapine Fumarate) 100 Mg Tablet, 100 MG PO HS, (Reported) UIX-Iuhhco-Gskjcf Hx Patient Social History Marrital Status: single Employed/Student: unemployed Drug of Choice: THC, METH, "CRACK", "ICE" Smoking Status: Current Everyday Smoker Type Used: Cigarettes 2nd Hand Smoke Exposure: Yes Recent Hopitalizations: No Substance type: Methamphetamine, Marijuana Have you traveled recently?: No Immunizations Up To Date Tetanus Booster (TDap): Unknown Date of Influenza Vaccine: Jun 11, 2015 Family Medical History Significant Family History: Psychiatric Problems Family History: Patient reports no known family medical history. Physical Exam Vital Signs Vital Signs - First Documented 11/26/20 21:06 Temp 36.0 Pulse 106 Resp 16 B/P (MAP) 120/72 (88) Pulse Ox 98 O2 Delivery Room Air Capillary Refill : Less Than 3 Seconds Height, Weight, BMI Height: 5'1.00" Weight: 225lbs. 0.0oz. 102.392542rd; 42.19 BMI Method:Stated General Appearance: No Apparent Distress Data Review Labs Laboratory Tests 11/26/20 21:17 11/27/20 03:25 11/27/20 05:33 Laboratory Tests 11/26/20 21:17: White Blood Count 11.3H, Hemoglobin 8.4L, Hematocrit 30L, Mean Corpuscular Volume 73L, Mean Corpuscular Hemoglobin 20L, Mean Corpuscular Hemoglobin Concent 28L, Red Cell Distribution Width 18.7H, Platelet Count 471H, Mean Platelet Volume 8.5L, Potassium Level 2.9L, Chloride Level 108H, Carbon Dioxide Level 20L , Glucose Level 159H, Salicylates Level < 5.0L, Acetaminophen Level < 10L 11/26/20 21:45: Urine Protein TRACEH, Urine RBC (Auto) 3+H, Urine RBC 50-100H, Urine Crystals PRESENTH, Urine Calcium Oxalate Crystals FEWH, Urine Mucus MODERATEH, Ur Tricyclic Antidepressants Screen POSITIVEH 11/27/20 03:25: Chloride Level 113H, Carbon Dioxide Level 19L, Glucose Level 128H, Calcium Level 8.0L, Total Protein 6.2L 11/27/20 05:33: Hemoglobin 7.5L, Hematocrit 27L, Mean Corpuscular Volume 73L, Mean Corpuscular Hemoglobin 20L, Mean Corpuscular Hemoglobin Concent 28L, Red Cell Distribution Width 18.7H, Red Blood Count 3.69L 11/27/20 08:00: Impression & Plan Impression & Plan IMP; 1. Microcytic anemia Hb 8.4, MCV 73 on admission. Iron study. However, she is classic iron deficiency anemia. 2. Normal WBC and Plt 3. Normal renal function. 4. Electrolites imbalance. Plan: 1. No transfusion needed at this point. Her Hb dropped since admission is due to IV dilution. 2. Protonix 40mg daily for 3 months. Carafate 1g qid x 2 weeks. 3. Oral iron ferrous sulfate 325mg bid for 3 months. Taking 2 hrs apart from the Protonix and carafate. 4. F/u at the PCP office with repeated CBC monthly. If she is not improving by the end of 3 months, then refer to me for further work up and possible GI scope. LADAN CASTANO MD Nov 27, 2020 17:11
[2020-11-27] MEDS ORDERED: MELATONIN 3 MG TABLET PO PRN (21:00)
[2020-11-27] MEDS ORDERED: CALCIUM CARBONATE 500 MG (TUMS) TAB.CHEW PO PRN (21:00)
[2020-11-27] MEDS ORDERED: ALPRAZolam 0.25 MG (XANAX) TAB PO PRN (21:00)
[2020-11-27] MEDS ORDERED: DOCUSATE SODIUM 100 MG (COLACE) CAP PO PRN (21:00)
[2020-11-27] MEDS ORDERED: ONDANSETRON 4 MG/2 ML (SDV) Z0FRAN IVP PRN (21:00)
[2020-11-27] MEDS ORDERED: HYDROcodone/APAP 5 MG/325 MG (LORTAB) TAB PO PRN (21:00)
[2020-11-27] MEDS ORDERED: ACETAMINOPHEN 500 MG TAB (TYLENOL) PO PRN (21:00)
[2020-11-27] MEDS ORDERED: diphenhydrAMINE 25 MG TAB (BENADRYL) PO PRN (21:00)
[2020-11-27] MEDS ORDERED: PANTOPRAZOLE 40 MG (PROTONIX) TAB PO ONE (21:00)
[2020-11-27] MEDS ORDERED: LOPERAMIDE 2 MG (IMODIUM) TABLET PO PRN (21:00)
[2020-11-27] MEDS: SUCRALFATE 1 GM (CARAFATE) TAB PO SCH (22:25)
[2020-11-27] MEDS: SENNA W/DOCUSATE (SENOKOT S) TABLET PO SCH (22:25)
[2020-11-27] MEDS: ENOXAPARIN 40 MG/0.4 ML (LOVENOX) SYR SC SCH (22:26)
[2020-11-28 03:12] LABS: BASOPHILS # (AUTO) 0.1 10^3/uL (0.0-0.1); BASOPHILS % (AUTO) 1 % (0-10); EOSINOPHILS # (AUTO) 0.4 10^3/uL (0.0-0.3); EOSINOPHILS % (AUTO) 4 % (0-10); HEMATOCRIT 29 % (35-52); HEMOGLOBIN 8.3 g/dL (11.5-16.0); LYMPHOCYTES # (AUTO) 1.5 10^3/uL (1.0-4.0); LYMPHOCYTES % (AUTO) 17 % (12-44); MEAN CORPUSCULAR HEMOGLOBIN 21 pg (25-34); MEAN CORPUSCULAR HGB CONC 29 g/dL (32-36); MEAN CORPUSCULAR VOLUME 74 fL (80-99); MEAN PLATELET VOLUME 8.7 fL (9.0-12.2); MONOCYTES # (AUTO) 0.5 10^3/uL (0.0-1.0); MONOCYTES % (AUTO) 5 % (0-12); NEUTROPHILS # (AUTO) 6.7 10^3/uL (1.8-7.8); NEUTROPHILS % (AUTO) 73 % (42-75); PLATELET COUNT 435 10^3/uL (130-400); WHITE BLOOD COUNT 9.1 10^3/uL (4.3-11.0)
[2020-11-28 03:20] LABS: ALBUMIN 3.4 GM/DL (3.2-4.5); CHLORIDE 111 MMOL/L (98-107); POTASSIUM 3.7 MMOL/L (3.6-5.0); SODIUM 138 MMOL/L (135-145)
[2020-11-28 03:21] LABS: CALCIUM 8.1 MG/DL (8.5-10.1)
[2020-11-28 03:22] LABS: GLUCOSE 97 MG/DL (70-105); TOTAL PROTEIN 6.4 GM/DL (6.4-8.2)
[2020-11-28 03:23] LABS: CARBON DIOXIDE 19 MMOL/L (21-32)
[2020-11-28 03:24] LABS: BILIRUBIN,TOTAL 0.4 MG/DL (0.1-1.0)
[2020-11-28 03:26] LABS: ALKALINE PHOSPHATASE 101 U/L (40-136); CREATININE SERUM 0.82 MG/DL (0.60-1.30); GFR ESTIMATED > 60
[2020-11-28 03:27] LABS: BUN/CREATININE RATIO 12
[2020-11-28 03:29] LABS: ALANINE AMINOTRANSFERASE 16 U/L (0-55)
[2020-11-28] MEDS: SUCRALFATE 1 GM (CARAFATE) TAB PO SCH ×2 (06:08→10:49)
[2020-11-28] MEDS: MULTIVIT W/MINERALS TAB (THERAGRAN M) PO SCH (06:09)
[2020-11-28] MEDS: SENNA W/DOCUSATE (SENOKOT S) TABLET PO SCH (08:15)
[2020-11-28] MEDS: ENOXAPARIN 40 MG/0.4 ML (LOVENOX) SYR SC SCH (08:15)
[2020-11-28] MEDS ORDERED: PANTOPRAZOLE 40 MG (PROTONIX) TAB PO SCH (09:00)
[2020-11-28] MEDS ORDERED: IRON SUCROSE 200 MG/10 ML (VENOFER) VIAL IV SCH (09:00)
[2020-11-28] MEDS: FAMOTIDINE 20 MG (PEPCID) TABLET PO SCH (09:52)
[2020-11-28] MEDS ORDERED: IRON150C3 PO (12:16)
[2020-11-28] MEDS ORDERED: PANT40TA2 PO (12:17)
--- NOTE | 2020-11-28 12:17 | Discharge Summary ---
Discharge Summary Hospital Course Was the Problem List Reviewed?: Yes Problems/Dx: (1) Intentional overdose of drug in tablet form Status: Acute (2) Chronic anemia Status: Acute (3) Suicide attempt Status: Acute (4) Hypokalemia Status: Acute Hospital Course Date of Admission: Nov 26, 2020 at 21:40 Admission Diagnosis : Family Physician/Provider: [place] Date of Discharge: 11/28/20 Discharge Diagnosis: purposeful OD, depression, chronic mental illness, ARIANA, smoker, severe anemia asymptomatic Hospital Course: Short course after admitted to ICU with sitter for OD purposeful. 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 Labs and Pending Lab Test: Laboratory Tests 11/27/20 19:25: Hemoglobin 8.4L 11/28/20 03:06: Hemoglobin 8.3L, White Blood Count 9.1, Red Blood Count 3.94, Hematocrit 29L, Mean Corpuscular Volume 74L, Mean Corpuscular Hemoglobin 21L, Mean Corpuscular Hemoglobin Concent 29L, Red Cell Distribution Width 19.8H, Platelet Count 435H, Mean Platelet Volume 8.7L, Immature Granulocyte % (Auto) 1, Neutrophils (%) (Auto) 73, Lymphocytes (%) (Auto) 17, Monocytes (%) (Auto) 5, Eosinophils (%) (Auto) 4, Basophils (%) (Auto) 1, Neutrophils # (Auto) 6.7, Lymphocytes # (Auto) 1.5, Monocytes # (Auto) 0.5, Eosinophils # (Auto) 0.4H, Basophils # (Auto) 0.1, Immature Granulocyte # (Auto) 0.1, Sodium Level 138, Potassium Level 3.7, Chloride Level 111H, Carbon Dioxide Level 19L, Anion Gap 8, Blood Urea Nitrogen 10, Creatinine 0.82, Estimat Glomerular Filtration Rate > 60, BUN/Creatinine Ratio 12, Glucose Level 97, Calcium Level 8.1L, Corrected Calcium 8.6, Total Bilirubin 0.4, Aspartate Amino Transf (AST/SGOT) 15, Alanine Aminotransferase (ALT/SGPT) 16, Alkaline Phosphatase 101, Total Protein 6.4, Albumin 3.4 Microbiology 11/26/20 MRSA Screen - Final, Complete MRSA not isolated Home Meds Active Reported Abilify Maintena (Aripiprazole) 400 Mg Suser.syr 400 Mg IM MONTHLY Fluoxetine HCl 20 Mg Capsule 20 Mg PO HS Quetiapine Fumarate 100 Mg Tablet 100 Mg PO HS Lisinopril 10 Mg Tablet 10 Mg PO HS Assessment/Pt Instructions Mental health appt Discharge Planning: <30 minutes discharge planning Discharge Instructions Discharge Diet: No Restrictions Activity as Tolerated: Yes Discharge Physical Examination Vital Signs Vital Signs Date Time Temp Pulse Resp B/P (MAP) Pulse Ox O2 Delivery O2 Flow Rate FiO2 11/28/20 12:05 97 Room Air 11/28/20 11:11 36.7 77 122/81 (95) 11/28/20 06:12 18 General Appearance: No Apparent Distress, WD/WN Allergies: Coded Allergies: Penicillins (Verified Allergy, Mild, Pt has received Ceftriaxone in the past w/o issue, 03/20/19) Discharge Summary Date of Admission Nov 26, 2020 at 21:40 Date of Discharge Discharge Date: Nov 28, 2020 Admission Diagnosis Purposeful OD suicide attempt Anemia iron def HTN Discharge Diagnosis DC to [facility]. HARRY SUE DO Nov 28, 2020 12:17
--- NOTE | 2020-11-28 13:32 | Progress Note - Hospitalist ---
Subjective HPI/CC On Admission Date Seen by Provider: Nov 28, 2020 CC: Purposeful OD HPI: This is a patient of [facility] who called EMS after purposefully OD on meds she had saved at home. Seroquel and Paxil and Lisinopril 6 of each were taken. Doron nt has a h/o anemia iron def and hgb 8.4 decreased to 7.5 so iron infusion given before DC and iron study ordered. Patient is currently ok with going to [facility] as arranged by [facility]. BP remained stable all night. Sitter at bedside. Objective Exam Vital Signs Vital Signs Date Time Temp Pulse Resp B/P (MAP) Pulse Ox O2 Delivery O2 Flow Rate FiO2 11/28/20 12:05 97 Room Air 11/28/20 11:11 36.7 77 122/81 (95) 11/28/20 06:12 18 Capillary Refill : Less Than 3 Seconds Results/Procedures Lab Laboratory Tests 11/27/20 19:25 11/28/20 03:06 Patient resulted labs reviewed. Assessment/Plan Assessment and Plan Assess & Plan/Chief Complaint DC to [facility]. HARRY SUE DO Nov 28, 2020 13:32
== END 2020-11-28 15:34 | disposition home or self-care (01) ==
LOC: EDUNIT# 21:06 → ER 21:07 → ICU 21:40
PROVIDERS: ADMIT Internal Medicine; ATTEND Internal Medicine
DX: T43.592A Poisoning by other antipsychotics and neuroleptics, intentional self-harm, initial encounter (principal); T43.222A Poisoning by selective serotonin reuptake inhibitors, intentional self-harm, initial encounter; T46.4X2A Poisoning by angiotensin-converting-enzyme inhibitors, intentional self-harm, initial encounter; F41.9 Anxiety disorder, unspecified; F20.9 Schizophrenia, unspecified; F32.9 Major depressive disorder, single episode, unspecified; I10 Essential (primary) hypertension; G89.29 Other chronic pain; M54.9 Dorsalgia, unspecified; F17.210 Nicotine dependence, cigarettes, uncomplicated; D50.0 Iron deficiency anemia secondary to blood loss (chronic); N92.0 Excessive and frequent menstruation with regular cycle; Z88.0 Allergy status to penicillin; Z98.51 Tubal ligation status; Z98.890 Other specified postprocedural states; Z87.442 Personal history of urinary calculi; Z90.49 Acquired absence of other specified parts of digestive tract; Z87.19 Personal history of other diseases of the digestive system; Z79.891 Long term (current) use of opiate analgesic; Z79.899 Other long term (current) drug therapy; Z20.822 Contact with and (suspected) exposure to COVID-19
CPT/HCPCS: 80053 ×3; 80306; 81000; 82728; 83540; 83735 ×2; 84100; 84443; 84484; 84703 ×2; 85018; 85025 ×3; 85045; 86850; 86900; 86901; 86920; 87081; 93005 ×2; 99285; G0480 ×3; P9016; U0002; 36415; 80320; 80329; 87635; 90686

== ENCOUNTER 2022-11-21 13:39 | Emergency (ER) | payer MEDICAID ==
[2022-11-21] VITALS (12 sets, daily range): BP systolic 119–145; BP diastolic 59–84
[~2022-11-21] VITALS: Ht 154.9 cm; Wt 103.0 kg
[~2022-11-21 13:39] MED LIST changes: -FLUO20CA46 PO; +FLUO20CA48 PO; +HYDR-4085 PO; -HYDR-87 PO; +IRON150C3 PO; -LISI-729 PO; +LISI5TAB20 PO; +PANT40TA2 PO
--- NOTE | 2022-11-21 14:00 | ED Fall/Injury ---
General Chief Complaint: Trauma-Non Activation Stated Complaint: R ANKLE PAIN Nursing Triage Note: PT ARRIVEFD POV WITH CC OF RIGHT ANKLE PAIN AND LEFT TOP OF FOOT PAIN AFTER SHE TRIPPED AND FELL OFF A STEP AT HER HOUSE TODAY. PT HAS IV IN RIGHT AC PLACED BY EMS AND ICE PACK ON RIGHT ANKLE. Source: patient, EMS (YULIANA FINCH DO) History of Present Illness Date Seen by Provider: Nov 21, 2022 Time Seen by Provider: 13:42 Initial Comments PT ARRIVES VIA EMS FROM HOME PT WAS GOING DOWN 1 STEP FROM PORCH TO GROUND AND FELL, LANDING ON GROUND OCCURRED AT 1240 TODAY DID NOT HIT HEAD AND NO LOSS OF CONSCIOUSNESS C/O PAIN TO: -RIGHT ANKLE -TOP OF LEFT FOOT -BOTH HIPS -LEFT SIDE OF ABDOMEN NO NECK OR BACK PAIN NO CHEST PAIN NO SHORTNESS OF BREATH NO NAUSEA/VOMITING NO PARESTHESIAS OR MOTOR DEFICITS. PT IS NOT ON ASPIRIN OR BLOOD THINNERS LMP: 11/12/22. NORMAL. NO CONTROL (YULIANA FINCH DO) Allergies and Home Medications Allergies Coded Allergies: Penicillins (Verified Allergy, Mild, Pt has received Ceftriaxone in the past w/o issue, 03/20/19) Patient Home Medication List Aripiprazole (Abilify Maintena) 400 Mg Suser.syr, 400 MG IM MONTHLY, (Reported) Entered as Reported by: TED BRUMFIELD on 09/16/20 1327 Ciprofloxacin HCl (Ciprofloxacin HCl) 500 Mg Tablet, 500 MG PO BID Prescribed by: YULIANA FINCH on 11/21/22 1715 Fluoxetine HCl (Fluoxetine HCl) 20 Mg Capsule, 20 MG PO HS, (Reported) Entered as Reported by: TED BRUMFIELD on 09/16/20 1327 Hydrocodone/Acetaminophen (Hydrocodone-Acetamin 5-325 mg) 5 Mg-325 Mg Tablet, 1 EACH PO Q4-6 HOURS PRN for PAIN Prescribed by: YULIANA FINCH on 11/21/22 171 Iron Polysaccharide Complex (Ferrex 150) 150 Mg Iron Capsule, 150 MG PO BID Prescribed by: YULIANA FINCH on 11/21/22 1715 Lisinopril (Lisinopril) 10 Mg Tablet, 10 MG PO HS, (Reported) Entered as Reported by: SHEY MORALES on 04/18/18 1547 Pantoprazole Sodium (Protonix) 40 Mg Tablet.dr, 40 MG PO DAILY Prescribed by: HARRY SUE on 11/28/20 1217 Quetiapine Fumarate (Quetiapine Fumarate) 100 Mg Tablet, 100 MG PO HS, (Reported) Entered as Reported by: TED BRUMFIELD on 09/16/20 1327 Tamsulosin HCl (Flomax) 0.4 Mg Cap, 0.4 MG PO DAILY Prescribed by: YULIANA FINCH on 11/21/22 1715 Past Ozglahk-Jirmlc-Bhztqk Hx Patient Social History Tobacco Use?: Yes Substance use?: No Alcohol Use?: No (YULIANA FINCH DO) Immunizations Up To Date Tetanus Booster (TDap): Unknown PED Vaccines UTD: Yes (YULIANA FINCH DO) Seasonal Allergies Seasonal Allergies: No (YULIANA FINCH DO) Past Medical History Surgeries: Yes (SEE BELOW) Abdominal, Gallbladder, Renal, Tubal Ligation Respiratory: No Currently Using CPAP: No Currently Using BIPAP: No Cardiac: Yes Hypertension Neurological: No Reproductive Disorders: No 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 Psychiatric Problems SOCIAL HISTORY: -ETOH--HX OF DAILY USE--BEER + WINE COOLERS -DRUGS--MARIJUANA, METH--SMOKES IT, ALSO "ICE", "CRACK" -SMOKES 1-2 PPD PAST SURGICAL HISTORY: -09/15/20--VENTRAL HERNIA WITH BOWEL OBSTRUCTION--HERNIA REPAIR WITH PARTIAL SMALL BOWEL RESECTION AND PARTIAL OMENTECTOMY -CHOLECYSTECTOMY 04/2018 -BILATERAL TUBAL LIGATION -MULTIPLE PROCEDURES FOR KIDNEY STONES/LITHOTRIPSIES (YULIANA FINCH DO) Physical Exam Vital Signs Vital Signs - First Documented 11/21/22 13:45 Temp 36.9 Pulse 95 B/P (MAP) 145/89 (107) Pulse Ox 99 O2 Delivery Room Air (MAGDA MUJICA MD) Vital Signs Capillary Refill : (YULIANA FINCH DO) Height, Weight, BMI Height: 5'1.00" Weight: 225lbs. 0.0oz. 102.087231jy; 42.00 BMI Method:Stated (YULIANA FINCH DO) Procedures/Interventions Splinting and Joint Reduction : Dannie wrap: Yes Immobilizers: Step Light Walker s/m/lg Ordered: Crutches (YULIANA FINCH ) Progress/Results/Core Measures Results/Orders Lab Results Laboratory Tests Test 11/21/22 13:54 11/21/22 16:05 11/21/22 17:24 Range/Units White Blood Count 14.3 H 16.3 H 4.3-11.0 10^3/uL Red Blood Count 3.65 L 3.78 L 3.80-5.11 10^6/uL Hemoglobin 6.4 *L 7.1 L 11.5-16.0 g/dL Hematocrit 24 L 25 L 35-52 % Mean Corpuscular Volume 65 L 67 L 80-99 fL Mean Corpuscular Hemoglobin 18 L 19 L 25-34 pg Mean Corpuscular Hemoglobin Concent 27 L 28 L 32-36 g/dL Red Cell Distribution Width 21.1 H 22.4 H 10.0-14.5 % Platelet Count 788 H 722 H 130-400 10^3/uL Mean Platelet Volume 8.6 L 8.6 L 9.0-12.2 fL Immature Granulocyte % (Auto) 3 % Neutrophils (%) (Auto) 75 42-75 % Lymphocytes (%) (Auto) 15 12-44 % Monocytes (%) (Auto) 5 0-12 % Eosinophils (%) (Auto) 2 0-10 % Basophils (%) (Auto) 0 0-10 % Neutrophils # (Auto) 10.8 H 1.8-7.8 10^3/uL Lymphocytes # (Auto) 2.1 1.0-4.0 10^3/uL Monocytes # (Auto) 0.6 0.0-1.0 10^3/uL Eosinophils # (Auto) 0.3 0.0-0.3 10^3/uL Basophils # (Auto) 0.0 0.0-0.1 10^3/uL Immature Granulocyte # (Auto) 0.4 H 0.0-0.1 10^3/uL Neutrophils % (Manual) 69 % Lymphocytes % (Manual) 20 % Monocytes % (Manual) 5 % Eosinophils % (Manual) 2 % Basophils % (Manual) 1 % Band Neutrophils 3 % Polychromasia SLIGHT Hypochromasia MARKED Basophilic Stippling SLIGHT Target Cells SLIGHT Stomatocytes SLIGHT Sodium Level 139 135-145 MMOL/L Potassium Level 4.1 3.6-5.0 MMOL/L Chloride Level 108 H 98-107 MMOL/L Carbon Dioxide Level 20 L 21-32 MMOL/L Anion Gap 11 5-14 MMOL/L Blood Urea Nitrogen 11 7-18 MG/DL Creatinine 0.99 0.60-1.30 MG/DL Estimat Glomerular Filtration Rate 69 BUN/Creatinine Ratio 11 Glucose Level 103 70-105 MG/DL Calcium Level 8.7 8.5-10.1 MG/DL Corrected Calcium 9.0 8.5-10.1 MG/DL Total Bilirubin 0.3 0.1-1.0 MG/DL Aspartate Amino Transf (AST/SGOT) 17 5-34 U/L Alanine Aminotransferase (ALT/SGPT) 26 0-55 U/L Alkaline Phosphatase 133 40-136 U/L Total Protein 7.9 6.4-8.2 GM/DL Albumin 3.6 3.2-4.5 GM/DL Amylase Level 40 25-125 U/L Lipase 29 8-78 U/L Serum Test, Qualitative NEGATIVE NEGATIVE Serum Alcohol < 10 <10 MG/DL Urine Color YELLOW Urine Clarity CLEAR Urine pH 6.0 5-9 Urine Specific [place] <=1.005 1.016-1.022 Urine Protein NEGATIVE NEGATIVE Urine Glucose (UA) NEGATIVE NEGATIVE Urine Ketones NEGATIVE NEGATIVE Urine Nitrite NEGATIVE NEGATIVE Urine Bilirubin NEGATIVE NEGATIVE Urine Urobilinogen 0.2 < = 1.0 MG/DL Urine Leukocyte Esterase NEGATIVE NEGATIVE Urine RBC (Auto) TRACE-I H NEGATIVE Urine RBC 0-2 /HPF Urine WBC 0-2 /HPF Urine Crystals NONE /LPF Urine Bacteria TRACE /HPF Urine Casts NONE /LPF Urine Mucus NEGATIVE /LPF Urine Culture Indicated NO Urine Opiates Screen NEGATIVE NEGATIVE Urine Oxycodone Screen NEGATIVE NEGATIVE Urine Methadone Screen NEGATIVE NEGATIVE Urine Propoxyphene Screen NEGATIVE NEGATIVE Urine Barbiturates Screen NEGATIVE NEGATIVE Ur Tricyclic Antidepressants Screen POSITIVE H NEGATIVE Urine Phencyclidine Screen NEGATIVE NEGATIVE Urine Amphetamines Screen NEGATIVE NEGATIVE Urine Methamphetamines Screen NEGATIVE NEGATIVE Urine Benzodiazepines Screen NEGATIVE NEGATIVE Urine Cocaine Screen NEGATIVE NEGATIVE Urine Cannabinoids Screen NEGATIVE NEGATIVE (MAGDA MUJICA MD) My Orders Orders - MAGDA MUJICA MD Morphine Injection (Morphine Injection (11/21/22 20:10) (MAGDA MUJICA MD) Medications Given in ED Current Medications Medications Dose Ordered Sig/Mikki Route Start Time Stop Time Status Last Admin Dose Admin Acetaminophen/ Hydrocodone Bitart 1 ea Q4H PRN PO 11/21/22 18:30 11/21/22 18:32 1 EA Fentanyl Citrate 50 mcg ONCE ONCE IVP 11/21/22 17:30 11/21/22 17:31 DC 11/21/22 17:32 50 MCG Fentanyl Citrate 50 mcg ONCE ONCE IVP 11/21/22 18:30 11/21/22 18:31 DC 11/21/22 19:12 50 MCG Iohexol 100 ml ONCE ONCE IV 11/21/22 14:30 11/21/22 14:31 DC 11/21/22 14:43 80 ML Sodium Chloride 100 ml ONCE ONCE IV 11/21/22 14:30 11/21/22 14:31 DC 11/21/22 14:43 80 ML (MAGDA MUJICA MD) Vital Signs/I&O 11/21/22 11/21/22 11/21/22 11/21/22 13:45 15:40 15:45 15:50 Temp 36.9 37.1 37.0 37.1 Pulse 95 79 76 71 B/P (MAP) 145/89 (107) 137/84 145/84 135/80 Pulse Ox 99 96 97 98 O2 Delivery Room Air Room Air Room Air Room Air 11/21/22 11/21/22 11/21/22 11/21/22 15:55 15:56 18:05 18:10 Temp 37.1 37.1 37.2 37.1 Pulse 75 74 68 67 B/P (MAP) 144/81 144/81 132/76 126/74 Pulse Ox 96 96 97 98 O2 Delivery Room Air Room Air Room Air Room Air 11/21/22 11/21/22 11/21/22 11/21/22 18:15 18:20 18:23 19:33 Temp 37.1 37.3 37.3 37.2 Pulse 71 73 73 73 B/P (MAP) 132/75 133/81 132/74 119/62 Pulse Ox 97 96 98 95 O2 Delivery Room Air Room Air Room Air Room Air 11/21/22 20:38 B/P (MAP) 136/59 (MAGDA MUJICA MD) Blood Pressure Mean: 107 Progress Progress Note : Time: 21:02 Progress Note Patient had been prepared for discharge by Dr. Finch so that she could leave after receiving her transfusion. However, staff notified me that patient was unable to bear weight on her left foot when they tried to get her up to use c rutches. I was called to the room to assess the patient. She complained of pain on the dorsum of the left foot, especially with bearing weight. She had tenderness in the mid dorsum of the left foot without obvious injury on inspection. Pedal pulses were strong and distal exam was unremarkable. I reviewed the foot x-rays. There is asymmetry between the bony structures of the right and left foot but no acute fracture or dislocation was appreciated by my interpretation. I also reviewed the radiologist report and no acute fracture or dislocation was noted there either. Patient had received fentanyl about an hour prior to my exam according to nursing staff. Morphine was given for additional pain control. Nursing staff then attempted to get her up with crutches. She was unable to tolerate that, but she was able to tolerate ambulation with a walker. Patient was discharged with a walker rather than crutches. See Dr. Finch's discharge instructions for further discussion. (MAGDA MUJICA MD) Diagnostic Imaging Comments CT CHEST/ABDOMEN / PELVIS--PER RADIOLOGIST REPORT AT 1513 COMPARISON: Abdominopelvic CT 09/14/2020. CT CHEST: No chest wall fracture deformity no lung contusion pneumothorax or hemothorax thoracic aorta is patent and intact and nonacute there is a no significant pericardial or pleural effusion no chest wall hematoma no lung mass no findings of aspiration no thoracic lymphadenopathy. CT ABDOMEN/PELVIS: There is no hemoperitoneum. There is no retroperitoneal hemorrhage. The uterus, adnexa and urinary bladder have an unremarkable appearance. No evidence for liver, splenic laceration or mass. No pathological biliary dilatation in this patient postcholecystectomy. The pancreas, adrenals and spleen appear unremarkable. This patient has bilateral renal calculi. There is moderate to severe right hydroureteronephrosis with the right ureter tortuous in its course with multiple distal right ureteral stones present at the level of the ureters crossing of the iliac vascularity. There is an inseparable stone aggregate measuring 11.1 mm AP x 7.3 mm cephalocaudal at the level of ureteral transition. Distally beyond that level it is decompressed. There is an extra-ureteral pelvic phlebolith more caudally. No stone in the bladder lumen. The bladder wall non-thickened. The ureteral orifices appear unremarkable. There are additional right renal calculi and likely mild right renal cortical parenchymal edema. There are left-sided renal calculi. The largest stone in an upper pole calyx measures 9.1 mm. The left ureter nondilated. No left-sided ureteral stone. There is no left hydronephrosis. The bony pelvis appears intact. There is chronic L5 spondylolysis defects with no acute appearing spinal injury apparent. IMPRESSION: 1. No posttraumatic sequelae in the chest, abdomen or pelvis. 2. Moderate to severe right hydroureteronephrosis with a tortuous dilated right ureter to the level of likely aggregation of multiple right ureteral stones accounting for the obstruction. There is however only mild right renal cortical edema. No substantial perinephric or periureteric stranding and there is no urinoma. 3. Additional nonobstructing bilateral renal calculi noted. The left ureter and bladder are negative. 4. No findings of abdominopelvic solid or hollow visceral injury and no other acute appearing or subacute appearing pathology. CXR-- FINDINGS: Heart is enlarged. Cardiac pacemaker remains in place. There is some scarring or atelectasis in the left midlung field and left base. Otherwise, lungs are clear. No effusion or pneumothorax is seen. There are postop changes of reverse shoulder arthroplasty on the left. IMPRESSION: Stable chest. No acute feature is identified. XRAYS--PER RADIOLOGIST REPORTS AT 1527 CXR-- PELVIS-- BILATERAL FEMURS-- BILATERAL TIB-FIB-- BILATERAL FEET-- Reviewed: Reviewed by Me, Amelia w/Radiologist (YULINAA FINCH DO) Departure Impression Primary Impression: FALL DOWN ONE STEP Additional Impressions: Closed fracture of right distal fibula Left foot pain Bilateral hip pain Left upper quadrant abdominal pain SEVERE ANEMIA--LIKELY DUE TO CHRONIC MENORRHAGIA RIGHT URETERAL STONES WITH HYDRONEPHROSIS Disposition: 01 HOME, SELF-CARE Condition: Stable Departure-Patient Inst. Decision time for Depature: 18:17 (YULIANA FINCH DO) Referrals: [facility] (PCP/Family) Primary Care Physician CHARLY LUDWIG MD, MICHAEL P MD Patient Instructions: Anemia Caused by Low Iron, Adult (DC), Fibula Fracture (DC), General Trauma, Adult ED, Kidney Stones (DC) Add. Discharge Instructions: ICE TO ANKLE AT 20 MINUTE INTERVALS DANNIE WRAP, WALKING BOOT AND CRUTCHES AT ALL TIMES ELEVATE RIGHT LEG MUCH POSSIBLE FOLLOW UP WITH DR. GUY OR DR. LUDWIG, ORTHOPEDIC SURGEONS, FOR FURTHER EVALUATION OF YOUR ANKLE FRACTURE YOU NEED TO FOLLOW UP WITH UROLOGIST OF CHOICE FOR YOUR KIDNEY STONES--[facility], [facility] AND [facility] IN [place] ALL HAVE UROLOGY SERVICES. YOU NEED TO FOLLOW UP WITH [facility] FOR FURTHER EVALUATION OF YOUR ANEMIA AND HEAVY PERIODS. YOU WILL NEED TO CALL IN THE MORNING TO SCHEDULE APPOINTMENTS FOR ALL OF THESE PROBLEMS. All discharge instructions reviewed with patient and/or family. Voiced understanding. Scripts Tamsulosin HCl (Flomax) 0.4 Mg Cap 0.4 MG PO DAILY, #10 CAP Prov: YULIANA FINCH DO 11/21/22 Ciprofloxacin HCl (Ciprofloxacin HCl) 500 Mg Tablet 500 MG PO BID, #14 TAB Prov: YULIANA FINCH DO 11/21/22 Hydrocodone/Acetaminophen (Hydrocodone-Acetamin 5-325 mg) 5 Mg-325 Mg Tablet 1 EACH PO Q4-6 HOURS PRN for PAIN, #12 TAB Prov: YULIANA FINCH DO 11/21/22 Iron Polysaccharide Complex (Ferrex 150) 150 Mg Iron Capsule 150 MG PO BID, #60 CAP Prov: YULIANA FINCH DO 11/21/22 YULIANA FINCH DO Nov 21, 2022 14:00 MAGDA MUJICA MD Nov 21, 2022 21:05
[2022-11-21 14:04] LABS: BASOPHILS % (AUTO) 0 % (0-10); EOSINOPHILS # (AUTO) 0.3 10^3/uL (0.0-0.3); EOSINOPHILS % (AUTO) 2 % (0-10); HEMATOCRIT 24 % (35-52); LYMPHOCYTES # (AUTO) 2.1 10^3/uL (1.0-4.0); LYMPHOCYTES % (AUTO) 15 % (12-44); MEAN CORPUSCULAR HEMOGLOBIN 18 pg (25-34); MEAN CORPUSCULAR HGB CONC 27 g/dL (32-36); MEAN CORPUSCULAR VOLUME 65 fL (80-99); MEAN PLATELET VOLUME 8.6 fL (9.0-12.2); MONOCYTES # (AUTO) 0.6 10^3/uL (0.0-1.0); MONOCYTES % (AUTO) 5 % (0-12); NEUTROPHILS # (AUTO) 10.8 10^3/uL (1.8-7.8); NEUTROPHILS % (AUTO) 75 % (42-75); PLATELET COUNT 788 10^3/uL (130-400); WHITE BLOOD COUNT 14.3 10^3/uL (4.3-11.0)
[2022-11-21 14:06] LABS: HEMOGLOBIN 6.4 g/dL (11.5-16.0)
[2022-11-21 14:15] LABS: ALBUMIN 3.6 GM/DL (3.2-4.5); CHLORIDE 108 MMOL/L (98-107); POTASSIUM 4.1 MMOL/L (3.6-5.0); SODIUM 139 MMOL/L (135-145)
[2022-11-21 14:16] LABS: AMYLASE 40 U/L (25-125)
[2022-11-21 14:17] LABS: CALCIUM 8.7 MG/DL (8.5-10.1)
[2022-11-21 14:18] LABS: GLUCOSE 103 MG/DL (70-105); TOTAL PROTEIN 7.9 GM/DL (6.4-8.2)
[2022-11-21 14:19] LABS: CARBON DIOXIDE 20 MMOL/L (21-32)
[2022-11-21 14:20] LABS: BILIRUBIN,TOTAL 0.3 MG/DL (0.1-1.0)
[2022-11-21 14:21] LABS: ALKALINE PHOSPHATASE 133 U/L (40-136)
[2022-11-21 14:22] LABS: CREATININE SERUM 0.99 MG/DL (0.60-1.30); GFR ESTIMATED 69
[2022-11-21 14:23] LABS: BUN/CREATININE RATIO 11
[2022-11-21 14:24] LABS: ALANINE AMINOTRANSFERASE 26 U/L (0-55)
[2022-11-21 14:25] LABS: LIPASE 29 U/L (8-78)
[2022-11-21] MEDS ORDERED: IOHEXOL 350 MG/ML 100 ML (OMNIPAQUE 350) VIAL IV ONE (14:30)
[2022-11-21] MEDS ORDERED: HOLD METFORMIN - RECEIVED CONTRAST 20 ML VIAL IV SCH (14:30)
[2022-11-21] MEDS ORDERED: NS 100 ML (IVPB) BAG IV ONE (14:30)
[2022-11-21 14:36] LABS: BAND NEUTROPHILS 3 %; BASOPHILS % (MANUAL) 1 %; EOSINOPHILS % (MANUAL) 2 %; HYPOCHROMASIA MARKED; LYMPHOCYTES % (MANUAL) 20 %; MONOCYTES % (MANUAL) 5 %; NEUTROPHILS % (MANUAL) 69 %; POLYCHROMASIA SLIGHT; TARGET CELLS SLIGHT
[2022-11-21 14:37] LABS: STOMATOCYTES SLIGHT
--- NOTE | 2022-11-21 15:04 | Diagnostic Imaging Report ---
PROCEDURE: CT chest, abdomen, and pelvis with contrast. TECHNIQUE: Multiple contiguous axial images were obtained through the chest, abdomen, and pelvis after the administration of intravenous contrast. Auto Exposure Controls were utilized during the CT exam to meet ALARA standards for radiation dose reduction. INDICATION: Fall, pain. COMPARISON: Abdominopelvic CT 09/14/2020. CT CHEST: No chest wall fracture deformity no lung contusion pneumothorax or hemothorax thoracic aorta is patent and intact and nonacute there is a no significant pericardial or pleural effusion no chest wall hematoma no lung mass no findings of aspiration no thoracic lymphadenopathy. CT ABDOMEN/PELVIS: There is no hemoperitoneum. There is no retroperitoneal hemorrhage. The uterus, adnexa and urinary bladder have an unremarkable appearance. No evidence for liver, splenic laceration or mass. No pathological biliary dilatation in this patient postcholecystectomy. The pancreas, adrenals and spleen appear unremarkable. This patient has bilateral renal calculi. There is moderate to severe right hydroureteronephrosis with the right ureter tortuous in its course with multiple distal right ureteral stones present at the level of the ureters crossing of the iliac vascularity. There is an inseparable stone aggregate measuring 11.1 mm AP x 7.3 mm cephalocaudal at the level of ureteral transition. Distally beyond that level it is decompressed. There is an extra-ureteral pelvic phlebolith more caudally. No stone in the bladder lumen. The bladder wall non-thickened. The ureteral orifices appear unremarkable. There are additional right renal calculi and likely mild right renal cortical parenchymal edema. There are left-sided renal calculi. The largest stone in an upper pole calyx measures 9.1 mm. The left ureter nondilated. No left-sided ureteral stone. There is no left hydronephrosis. The bony pelvis appears intact. There is chronic L5 spondylolysis defects with no acute appearing spinal injury apparent. IMPRESSION: 1. No posttraumatic sequelae in the chest, abdomen or pelvis. 2. Moderate to severe right hydroureteronephrosis with a tortuous dilated right ureter to the level of likely aggregation of multiple right ureteral stones accounting for the obstruction. There is however only mild right renal cortical edema. No substantial perinephric or periureteric stranding and there is no urinoma. 3. Additional nonobstructing bilateral renal calculi noted. The left ureter and bladder are negative. 4. No findings of abdominopelvic solid or hollow visceral injury and no other acute appearing or subacute appearing pathology. Dictated by: Dictated on workstation # [id number]
--- NOTE | 2022-11-21 15:10 | Diagnostic Imaging Report ---
INDICATION: Fall. TIME OF EXAM: 2:56 PM. COMPARISON: Correlation is made with prior chest of 04/13/2015. FINDINGS: Heart appears to be mildly enlarged. Lungs are clear. No infiltrate is seen. There is no effusion or pneumothorax. IMPRESSION: No acute cardiopulmonary process is detected. Dictated by: Dictated on workstation # [id number]
--- NOTE | 2022-11-21 15:12 | Diagnostic Imaging Report ---
INDICATION: Fall. TIME OF EXAM: 2:57 PM. FINDINGS: Single view of the pelvis shows normal femoral acetabular alignment. Rami are intact. Both hips appear to b intact. No fracture is seen. IMPRESSION: No acute bony abnormality is detected. Dictated by: Dictated on workstation # [id number]
--- NOTE | 2022-11-21 15:21 | Diagnostic Imaging Report ---
INDICATION: Trauma, fall. TIME OF EXAM: 2:58 PM. EXAMINATION: Multiple views of bilateral femora were obtained. FINDINGS: Alignment of both hips and knees is normal. No fracture is identified. There is no dislocation. IMPRESSION: No acute abnormality is detected. Dictated by: Dictated on workstation # [id number]
--- NOTE | 2022-11-21 15:22 | Diagnostic Imaging Report ---
INDICATION: Trauma and fall. TIME OF EXAM: 2:59 PM. EXAMINATION: Multiple views of bilateral tibia and fibula were obtained. FINDINGS: Alignment at the knee and ankle on the left is normal. No fracture is seen. On the right, there is a transversely oriented fracture through the distal fibula. No other fracture is seen. IMPRESSION: Transversely oriented distal right fibular fracture. No other abnormality is detected. Dictated by: Dictated on workstation # [id number]
--- NOTE | 2022-11-21 15:24 | Diagnostic Imaging Report ---
INDICATION: Pain. FINDINGS: There is no fracture, dislocation or opaque foreign body. There is some chronic bony proliferation and enthesopathy about the hind and mid feet, greater left. No acute appearing abnormality. IMPRESSION: No fracture, dislocation or acute foot injury identified at three view bilateral study. Dictated by: Dictated on workstation # [id number]
[2022-11-21] MEDS: NS IV 1000 ML 1,000 ML IV SCH ×2 (15:31→15:40)
[2022-11-21 16:13] LABS: BILIRUBIN,URINE NEGATIVE (NEGATIVE); CLARITY,URINE CLEAR; COLOR,URINE YELLOW; GLUCOSE, URINE (UA) NEGATIVE (NEGATIVE); KETONES,URINE NEGATIVE (NEGATIVE); LEUKOCYTE ESTERASE ,URINE NEGATIVE (NEGATIVE); NITRITE,URINE NEGATIVE (NEGATIVE); PROTEIN,URINE NEGATIVE (NEGATIVE)
[2022-11-21 16:37] LABS: BACTERIA,URINE TRACE /HPF; RBC,URINE 0-2 /HPF; WBC,URINE 0-2 /HPF
[2022-11-21 16:40] LABS: AMPHETAMINE SCREEN, URINE NEGATIVE (NEGATIVE); BARBITURATE SCREEN URINE NEGATIVE (NEGATIVE); BENZODIAZEPINES SCREEN URINE NEGATIVE (NEGATIVE); CANNABINOID SCREEN, URINE NEGATIVE (NEGATIVE); COCAINE SCREEN URINE NEGATIVE (NEGATIVE); METHADONE STAT NEGATIVE (NEGATIVE); OPIATE SCREEN URINE NEGATIVE (NEGATIVE); OXYCODONE STAT NEGATIVE (NEGATIVE); PROPOXYPHENE STAT NEGATIVE (NEGATIVE); TRICYCLIC ANTIDEPRESSANTS SCRE POSITIVE (NEGATIVE)
[2022-11-21] MEDS ORDERED: ACHD5005 PO (17:15)
[2022-11-21] MEDS ORDERED: IRON150C3 PO (17:15)
[2022-11-21] MEDS ORDERED: CIPR500T5 PO (17:15)
[2022-11-21] MEDS ORDERED: TMSL.4C PO (17:15)
[2022-11-21] MEDS ORDERED: fentaNYL INJ 100 MCG/2 ML AMP IVP ONE ×2 (17:30→18:30)
[2022-11-21 17:33] LABS: HEMATOCRIT 25 % (35-52); HEMOGLOBIN 7.1 g/dL (11.5-16.0); MEAN CORPUSCULAR HEMOGLOBIN 19 pg (25-34); MEAN CORPUSCULAR HGB CONC 28 g/dL (32-36); MEAN CORPUSCULAR VOLUME 67 fL (80-99); MEAN PLATELET VOLUME 8.6 fL (9.0-12.2); PLATELET COUNT 722 10^3/uL (130-400); WHITE BLOOD COUNT 16.3 10^3/uL (4.3-11.0)
[2022-11-21] MEDS ORDERED: morphine INJ 10 MG/ML 1ML (SYR OR VIAL) IVP STA (20:10)
== END 2022-11-21 21:00 | disposition home or self-care (01) ==
LOC: EDUNIT# 13:39 → ER 13:41
DX: S82.831A Other fracture of upper and lower end of right fibula, initial encounter for closed fracture (principal); D64.9 Anemia, unspecified; N13.2 Hydronephrosis with renal and ureteral calculous obstruction; M25.552 Pain in left hip; M25.551 Pain in right hip; M79.672 Pain in left foot; F17.210 Nicotine dependence, cigarettes, uncomplicated; Z28.310 Unvaccinated for COVID-19; Z88.0 Allergy status to penicillin; Z87.19 Personal history of other diseases of the digestive system; Z90.49 Acquired absence of other specified parts of digestive tract; Z98.890 Other specified postprocedural states; W10.9XXA Fall (on) (from) unspecified stairs and steps, initial encounter; Y92.009 Unspecified place in unspecified non-institutional (private) residence as the place of occurrence of the external cause
CPT/HCPCS: 51701; 71045; 71260; 72170; 73552; 73590; 73630; 74177; 80053; 80306; 81000; 82150; 83690; 84703; 85007; 85027; 86850; 86900; 86901; 86920; 93041; 99284; G0480; L2114; P9016; 36415; 80320